=== PATIENT | male | born 1970 ===

== ENCOUNTER 2016-07-30 09:36 | Inpatient (IN) | payer BC ==
[2016-07-30 09:42] VITALS: BMI 30.5
[2016-07-30] MEDS ORDERED: Sodium Chloride 0.9% 1,000 ML IV ONE ×4 (10:02→14:13)
[2016-07-30] MEDS ORDERED: Sodium Chloride 0.9% 1,000 ML ONE ×2 (10:09→12:52)
[2016-07-30 10:46] LABS: BASO # 0.1 K/uL (0.0-0.2); BASO % 0.3 % (0.0-2.0); EOS % 0.2 % (0.0-4.0); LYMPH # 1.1 K/uL (1.0-4.3); LYMPH % 4.9 % (20.0-40.0); MEAN CELL VOLUME 91.7 fL (80.0-94.0); MEAN CORPUSCULAR HEMOGLOBIN 31.4 pg (27.0-31.0); MEAN CORPUSCULAR HGB CONC 34.3 g/dL (33.0-37.0); MEAN PLATELET VOLUME 8.2 fL (7.2-11.7); MONO # 1.1 K/uL (0.0-0.8); MONO % 5.2 % (0.0-10.0); NRBC % 0.1 % (0.0-2.0); PLATELET COUNT 291 K/uL (130-400); RED CELL DISTRIBUTION WIDTH 15.1 % (11.5-14.5)
--- NOTE | 2016-07-30 10:46 | RAD ---
PROCEDURE: Radiographs of the chest and abdomen (obstructive series) HISTORY: abd pain COMPARISON: No prior. TECHNIQUE: AP radiograph of the chest, with upright and supine radiographs of the abdomen. FINDINGS: CHEST: Lungs: Clear. Cardiovascular: Normal size heart. No pulmonary vascular congestion. Pleura: No pleural fluid. No pneumothorax. Other findings: None. ABDOMEN AND PELVIS: Bowel: Unremarkable bowel gas pattern. No evidence of mechanical obstruction. Free air: None. Bones: Unremarkable. Other findings: None. IMPRESSION: Unremarkable radiographs of chest and abdomen. No evidence of mechanical bowel obstruction.
[2016-07-30 10:49] LABS: WHITE BLOOD COUNT 22.1 K/uL (4.8-10.8)
[2016-07-30 10:52] LABS: CHLORIDE 98 mmol/L (98-107); SODIUM 143 mmol/L (132-148)
[2016-07-30 10:54] LABS: ALB/GLOB RATIO 1.3 (1.0-2.1); AST/SGOT 603 U/L (17-59); BILIRUBIN,TOTAL 6.6 mg/dL (0.2-1.3); CARBON DIOXIDE 24 mmol/L (22-30); GFR AFRICAN-AMERICAN > 60; TOTAL PROTEIN 7.9 g/dL (6.3-8.3)
[2016-07-30 10:55] LABS: ALKALINE PHOSPHATASE 192 U/L (38-126); ALT/SGPT 813 U/L (21-72); BLOOD UREA NITROGEN 11 mg/dL (9-20); CALCIUM 9.5 mg/dl (8.6-10.4); GLUCOSE,RANDOM 232 mg/dL (75-110)
[2016-07-30] MEDS ORDERED: Potassium Chloride 20 mEq ER Tab PO STA (10:56)
[2016-07-30] MEDS ORDERED: Piperacillin/Tazobact 3.375 gm 100 ML IV STA (10:56)
[2016-07-30 11:02] LABS: URINE BILIRUBIN NEGATIVE (NEGATIVE); URINE BLOOD 1+ (NEGATIVE); URINE COLOR Amber (YELLOW); URINE GLUCOSE (UA) 3+ mg/dL (Normal); URINE KETONE 1+ mg/dL (NEGATIVE); URINE LEUKOCYTE ESTERASE NEG Leu/uL (Negative); URINE PROTEIN NEGATIVE (NEGATIVE); URINE UROBILINOGEN NORMAL mg/dL (0.2-1.0); WBC URINE 1 /hpf (0-5)
[2016-07-30 11:03] LABS: RBC URINE 4 /hpf (0-3)
[2016-07-30] MEDS ORDERED: Potassium Chloride 20 mEq ER Tab PO ONE (11:09)
[2016-07-30] MEDS ORDERED: Piperacillin/Tazobact 3.375 gm 100 ML IVPB ONE (11:09)
[2016-07-30 11:14] LABS: BASOPHIL 1 % (0-2); NEUTROPHIL 86 % (50-75); TOTAL CELLS COUNTED 100
[2016-07-30] MEDS ORDERED: Iodixanol 320 MG/ML 100 ML BOTTLE IV ONE (11:46)
--- NOTE | 2016-07-30 12:47 | C.PDOC ---
History Of Present Illness <Ashtyn Bynum - Last Filed: 07/30/16 14:14> <NoeRowdyDamaris Darren - Last Filed: 07/30/16 15:19> 46 y/o male presents to the ED complaining of abdominal pain for 2 days, worse since this morning. Patient reports constipation for 3 days, and states he took Senna last night with no relief or bowel movement. He reports nausea since this morning with one episode of vomiting. Denies past medical history but admits to family history of diabetes and hypertension. Patient denies fevers, back pain, chest pain, SOB, urinary symptoms, or other complaints. (Damaris Noe) <Ashtyn Bynum - Last Filed: 07/30/16 14:14> History Per: Patient History/Exam Limitations: no limitations Onset/Duration Of Symptoms: Days (2), Gradual, Persistent, Worse Since (today) Current Symptoms Are (Timing): Still Present Location Of Pain/Discomfort: Diffuse Radiation Of Pain To:: None Associated Symptoms: Nausea, Vomiting (x 1) Last Bowel Movement: Days Ago (3) Recent travel outside of the [place]: No <Damaris Noe - Last Filed: 07/30/16 15:19> Time Seen by Provider: 07/30/16 09:57 Chief Complaint (Nursing): Abdominal Pain Past Medical History Reviewed: Historical Data, Nursing Documentation, Vital Signs - Medical History PMH: No Chronic Diseases Surgical History: No Surg Hx Family History: States: Diabetes, Hypertension - Social History Hx Tobacco Use: No Hx Alcohol Use: No Hx Substance Use: No - Immunization History Hx Tetanus Toxoid Vaccination: No Hx Influenza Vaccination: No Hx Pneumococcal Vaccination: No <Damaris Noe - Last Filed: 07/30/16 15:19> Vital Signs: Last Vital Signs Temp 97.4 F L 07/30/16 13:27 Pulse 58 L 07/30/16 15:04 Resp 14 07/30/16 15:04 BP 161/87 H 07/30/16 15:04 Pulse Ox 99 07/30/16 15:17 Review Of Systems Constitutional: Negative for: Fever Gastrointestinal: Positive for: Nausea, Vomiting (x1), Abdominal Pain Genitourinary: Negative for: Dysuria, Hematuria Musculoskeletal: Negative for: Back Pain <Damaris Noe - Last Filed: 07/30/16 15:19> Physical Exam - Physical Exam Appears: Non-toxic, Other (uncomfortable; in painful distress) Skin: Normal Color, Warm, Diaphoretic Head: Atraumatic, Normacephalic Eye(s): bilateral: Normal Inspection, PERRL Oral Mucosa: Moist Neck: Normal ROM, Supple Chest: Symmetrical Cardiovascular: Rhythm Regular Respiratory: Normal Breath Sounds, No Rales, No Rhonchi, No Wheezing Gastrointestinal/Abdominal: Soft, Tenderness (generalized, non-focal), Distention (mild), Guarding (voluntary), No Rebound Back: Normal Inspection, No CVA Tenderness Extremity: Normal ROM, No Swelling Neurological/Psych: Oriented x3, Normal Speech, Normal Cognition <Damaris Noe - Last Filed: 07/30/16 15:19> ED Course And Treatment - Laboratory Results Result Diagrams: 07/30/16 10:33 07/30/16 10:33 <Ashtyn Bynum - Last Filed: 07/30/16 14:14> - Laboratory Results Result Diagrams: 07/30/16 10:33 07/30/16 10:33 O2 Sat by Pulse Oximetry: 99 (ra) Pulse Ox Interpretation: Normal - Other Rad X-Ray, Chest/Abd X-Ray: Viewed By Me, Read By Radiologist (Miah Ware MD) Interpretation: FINDINGS: CHEST: Lungs: Clear. Cardiovascular: Normal size heart. No pulmonary vascular congestion. Pleura: No pleural fluid. No pneumothorax. Other findings: None. ABDOMEN AND PELVIS: Bowel: Unremarkable bowel gas pattern. No evidence of mechanical obstruction. Free air: None. Bones: Unremarkable. Other findings: None. IMPRESSION: Unremarkable radiographs of chest and abdomen. No evidence of mechanical bowel obstruction. - CT Scan/US CT Abd/Pelvis Other Rad Studies (CT/US): Read By Radiologist (Alexandru Ware MD), Radiology Report Reviewed CT/US Interpretation: FINDINGS: LOWER THORAX: Unremarkable. LIVER: Unremarkable. No gross lesion or ductal dilatation. GALLBLADDER AND BILE DUCTS : No evidence of gallstones. No abnormalities within the common bile duct. PANCREAS: Severe common diffuse pancreatitis. The pancreas is edematous, peripancreatic stranding, inflammatory changes noted. Fluid tracks along the anatomic tissue planes the pancreas from adjacent intraperitoneal retroperitoneal structures. SPLEEN: Unremarkable. ADRENALS: Unremarkable. No mass. KIDNEYS AND URETERS: Unremarkable. No hydronephrosis. No solid mass. VASCULATURE: Unremarkable. No aortic aneurysm. BOWEL: Unremarkable. No obstruction. No gross mural thickening. APPENDIX: Normal appendix. PERITONEUM : Unremarkable. No free fluid. No free air. LYMPH NODES: Unremarkable. No enlarged lymph nodes. BLADDER: Unremarkable. REPRODUCTIVE: Unremarkable. BONES: No acute fracture. OTHER FINDINGS: None. IMPRESSION: Acute/severe pancreatitis without focal abnormalities to suggest necrotizing pancreatitis. Communication of results: I discussed findings directly with the physician assistant food service director at the time of this interpretation. Study completed at 12:13. <Damaris Noe - Last Filed: 07/30/16 15:19> Supervising Attending Note - Supervising Attending Note The Documented history was done by the: Physician Digital Printer The documented physical exam was done by the: Physician Digital Printer The documented procedures were done by the: Physician Digital Printer - Attestation: I have personally seen and examined this patient.: Yes I have fully participated in the care of the patient.: Yes I have reviewed all pertinent clinical information: Yes <Ashtyn Bynum - Last Filed: 07/30/16 14:14> <Damaris Noe - Last Filed: 07/30/16 15:19> - Notes: Notes:: ABD PAIN X 2 DAYS. NO BM X 3 DAYS. PSH NEG. DENIES ETOH ABUSE. VSS EXAM ABOVE. CT FINDINGS REVIEWED (FletcherAshtyn) Progress - Data Reviewed Data Reviewed: Lab, Diagnostic imaging, Old records - Continuity of Care Discussed patient case with:: Patient, On-call PMD-pt unassigned Discussed pt. case with [facility]ix consultant/specialty: Pulmonary/Crit. Care <Ashtyn Bynum - Last Filed: 07/30/16 14:14> <Damaris Noe - Last Filed: 07/30/16 15:19> - Re-Evaluation Re-evaluation Note: 07/30/16 14:16 D/W DR LOPEZ AWARE OF ER FINDINGS WILL EVAL IN ER (FletcherAshtyn) Medical Decision Making <Ashtyn Bynum - Last Filed: 07/30/16 14:14> <Damaris Noe - Last Filed: 07/30/16 15:19> Medical Decision Making: Impression: abdominal pain x 2 days, worse this am. Nausea and vomiting x 1. Generalized tenderness. Differential diagnosis includes but not limited to: pancreatitis, bowel obstruction Plan: * X-Ray, Abdomen * Blood Work * Blood Culture * Urine Culture * Urinalysis * Zofran IVP, Toradol IVP, Pepcid IVP, Morphine IVP Progress: Labs show leukocytosis>20, Blood culture and Zosyn ordered. Elevated lipase and hyperglycemia. Pt denies any history of DM, and occasional ETOH CT ordered - positive for acute/severe pancreatitis. 13:00 case d/w Dr. Jackson, accepts patient to his service. Requesting call to medical information specialist. 13:03 case d/w medical information specialist who states will come to ER. Discussed case with Dr Bynum who recommends ICU consult and speaks with director housekeeping (Damaris Noe) Disposition <FletcherAshtyn - Last Filed: 07/30/16 14:14> - Disposition Disposition Time: 13:05 <Damaris Noe - Last Filed: 07/30/16 15:19> - Disposition Disposition: TRANSF TO SNF Condition: FAIR - Clinical Impression Clinical Impression: Acute pancreatitis <Ashtyn Bynum - Last Filed: 07/30/16 14:14> - PA / MANAGER SOLUTION / Resident Statement MD/DO has reviewed & agrees with the documentation as recorded. - Scribe Statement The provider has reviewed the documentation as recorded by the Scribe (Genoveva Dugan) <Damaris Noe - Last Filed: 07/30/16 15:19> - Scribe Statement All medical record entries made by the Scribe were at my direction and personally dictated by me. I have reviewed the chart and agree that the record accurately reflects my personal performance of the history, physical exam, medical decision making, and the department course for this patient. I have also personally directed, reviewed, and agree with the discharge instructions and disposition. (Damaris Noe) Decision To Admit <Ashtyn Bynum - Last Filed: 07/30/16 14:14> - Pt Status Changed To: Hospital Disposition Of: Inpatient - Admit Certification Admit to Inpatient:: After my assessment, the patient will require hospitalization for at least two midnights. This is because of the severity of symptoms shown, intensity of services needed, and/or the medical risk in this patient being treated as an outpatient. - InPatient: Physician Admission Certification:: Patient with acute severe pancreatitis, WBC >20. Will require IV antibiotics, fluids and consults - . Bed Request Type: Regular Admitting Physician: Arden aJckson Jr. <Damaris Noe - Last Filed: 07/30/16 15:19> - . Patient Diagnosis: Acute pancreatitis
[2016-07-30] MEDS ORDERED: Morphine 4 MG/ML VIAL ONE (12:52)
--- NOTE | 2016-07-30 13:01 | CT ---
PROCEDURE: CT Abdomen and Pelvis with contrast HISTORY: Unspecified abdominal pain and constipation. COMPARISON: July 30, 2016. Abdominal series TECHNIQUE: Contrast dose: 100 cc Visipaque 320. Radiation dose: Total exam DLP = 563.47 mGy-cm. FINDINGS: LOWER THORAX: Unremarkable. LIVER: Unremarkable. No gross lesion or ductal dilatation. GALLBLADDER AND BILE DUCTS: No evidence of gallstones. No abnormalities within the common bile duct. PANCREAS: Severe common diffuse pancreatitis. The pancreas is edematous, peripancreatic stranding, inflammatory changes noted. Fluid tracks along the anatomic tissue planes the pancreas from adjacent intraperitoneal retroperitoneal structures. SPLEEN: Unremarkable. ADRENALS: Unremarkable. No mass. KIDNEYS AND URETERS: Unremarkable. No hydronephrosis. No solid mass. VASCULATURE: Unremarkable. No aortic aneurysm. BOWEL: Unremarkable. No obstruction. No gross mural thickening. APPENDIX: Normal appendix. PERITONEUM: Unremarkable. No free fluid. No free air. LYMPH NODES: Unremarkable. No enlarged lymph nodes. BLADDER: Unremarkable. REPRODUCTIVE: Unremarkable. BONES: No acute fracture. OTHER FINDINGS: None. IMPRESSION: Acute/severe pancreatitis without focal abnormalities to suggest necrotizing pancreatitis. Communication of results: I discussed findings directly with the physician workforce development assistant at the time of this interpretation. Study completed at 12:13.
[2016-07-30 13:49] LABS: VENOUS BLOOD GAS BASE EXCESS -2.4 mmol/L (0.0-2.0); VENOUS BLOOD GAS PCO2 50 mmHg (40-60)
[2016-07-30] MEDS ORDERED: Morphine 4 MG/ML VIAL IVP PRN (14:19)
[2016-07-30] MEDS ORDERED: Bisacodyl 5mg EC Tab PO PRN (14:25)
[2016-07-30] MEDS ORDERED: Morphine 4 MG/ML VIAL IVP SCH (14:30)
[2016-07-30] MEDS ORDERED: Sodium Chloride 0.9% 1,000 ML IV SCH (14:30)
--- NOTE | 2016-07-30 14:35 | CP.PCM.HP ---
History of Present Illness - History of Present Illness History of Present Illness: CC: "abdominal pain" 46 year old male with no PMHx presents to the ED with 2 day history of abdominal pain. Patient reports pain started first and it has progressed to 10 out 10 pain today. Admits to nausea and episode of emesis once this AM. He reports going to the emergency room with abdominal pain 1.5 years ago, where he was diagnosed with constipation and given a laxative. He admits to constipation now, with last BM 2-3 days ago. Admits to abdominal distension and pain. He states he had blood work done about a year ago to check for diabetes since his mother is a diabetic. Patient was told "everything was fine" and does not follow regularly with a PMD. Denies chest pain, SOB, fevers, chills, headache, palpitations, diarrhea. Admits to 1 year history of increased urinary frequency , urgency and occasional incontinence. PMHx: denies Social Hx: denies alcohol use, smokes 3 cigarets per day, admits to daily use of marijuana. Family Hx: mother with DM and HTN. Surgery Hx: none NKDA Medications: none PMD: none Present on Admission - Present on Admission Any Indicators Present on Admission: No Review of Systems - Constitutional Constitutional: absent: Chills, Fatigue, Fever - EENT Eyes: absent: Blurred Vision, Change in Vision - Cardiovascular Cardiovascular: absent: Chest Pain, Diaphoresis, Dyspnea - Respiratory Respiratory: absent: Cough, Dyspnea - Gastrointestinal Gastrointestinal: Abdominal Pain, Bloating, Constipation, Nausea, Vomiting. absent: Diarrhea - Genitourinary Genitourinary: Urinary Incontinence, Urinary Frequency, Urinary Urgency. absent : Difficulty Urinating, Dysuria - Musculoskeletal Musculoskeletal: absent: Back Pain, Numbness, Tingling - Integumentary Integumentary: absent: Non-Healing Lesions, Pruritus, Rash - Neurological Neurological: Weakness. absent: Dizziness, Numbness, Tingling - Psychiatric Psychiatric: absent: Anxiety - Endocrine Endocrine: absent: Fatigue, Palpitations - Hematologic/Lymphatic Hematologic: absent: Easy Bleeding, Easy Bruising Past Patient History - Past Social History Smoking Status: Light Smoker < 10 Cigarettes Daily - PSYCHIATRIC Hx Substance Use: No - SURGICAL HISTORY Hx Surgeries: No - ANESTHESIA Hx Anesthesia: No Meds Allergies/Adverse Reactions: Allergies Allergy/AdvReac Type Severity Reaction Status Date / Time No Known Allergies Allergy Verified 07/30/16 09:41 Physical Exam - Constitutional Appears: Toxic - Head Exam Head Exam: NORMAL INSPECTION, NORMOCEPHALIC - Eye Exam Eye Exam: EOMI, Normal appearance, Scleral icterus Pupil Exam: NORMAL ACCOMODATION, PERRL - ENT Exam ENT Exam: Mucous Membranes Dry, Normal Oropharynx - Neck Exam Neck exam: Positive for: Full Rom, Normal Inspection - Respiratory Exam Respiratory Exam: Clear to Auscultation Bilateral, NORMAL BREATHING PATTERN. absent: Rales, Rhonchi, Wheezes - Cardiovascular Exam Cardiovascular Exam: REGULAR RHYTHM, +S1, +S2. absent: Systolic Murmur - GI/Abdominal Exam GI & Abdominal Exam: Distended, Hypoactive Bowel Sounds, Tenderness - Extremities Exam Extremities exam: Positive for: full ROM, normal inspection. Negative for: pedal edema, tenderness - Back Exam Back exam: FULL ROM, NORMAL INSPECTION. absent: CVA tenderness (L), CVA tenderness (R) - Neurological Exam Neurological exam: Alert, CN II-XII Intact, Oriented x3 - Psychiatric Exam Psychiatric exam: Normal Affect, Normal Mood - Skin Skin Exam: Dry, Normal Color, Warm Results - Vital Signs Recent Vital Signs: Last Vital Signs Temp 97.4 F L 07/30/16 13:27 Pulse 50 L 07/30/16 12:56 Resp 18 07/30/16 12:56 BP 153/79 H 07/30/16 12:56 Pulse Ox 99 07/30/16 13:59 - Labs Result Diagrams: 07/30/16 10:33 07/30/16 10:33 Labs: Laboratory Results - last 24 hr 07/30/16 13:46 pO2 32 VBG pH 7.30 L VBG pCO2 50 VBG HCO3 21.9 VBG Total CO2 26.1 VBG O2 Sat (Calc) 62.1 VBG Base Excess -2.4 L VBG Potassium 3.4 L Sodium 141.0 Chloride 107.0 Glucose 185 H Lactate 3.1 H Venous Blood Potassium 3.4 L Assessment & Plan (1) Acute pancreatitis Assessment and Plan: Adriel's criteria at 24 hours: Positive for glucose >200 (232), LDH > 350 (3800) , AST >250 (603), WBC >67934 (72708). Lipase on admission 77784 Amylase on admission 1935 Abd/pelv CT showed acute/severe pancreatitis without focal abnormalities to suggest necrotizing pancreatitis. Patient received 2 bolus in the ED of NSS. Start aggressive fluid resuscitation with NSS at 200 cc/hr for 3 L. NPO except meds Zofran Q4H PRN for nausea f/u CMP Q8H Status: Acute (2) Metabolic acidosis, increased anion gap (IAG) Assessment and Plan: Measured anion gap: 21. Lactic Acid 3.3 as per VBG. Serum Ketones: negative Management as above. Status: Acute (3) Total bilirubin, elevated Assessment and Plan: T. Carrillo on admission 6.6. RUQ US shows heterogeneous echotexture of the hepatic parenchyma could be due to hepatic steatosis versus parenchymal disease. If indicated, MRI can be obtained for better evaluation. Cholelithiasis. No definite evidence of cholecystitis. Nuclear medicine HIDA scan can be obtained if indicated. GI consult placed- Dr. Matias- help appreciated. Status: Acute (4) Leukocytosis Assessment and Plan: Likely secondary to acute pancreatitis. WBC 22.1. Afebrile. Antibiotics not indicated at this time as per Dr. Jackson f/u blood and urine cx. UA negative CXR in obs series unremarkable. Lactic Acid 3.3 on admission. f/u CBC in the AM Status: Acute (5) Hyperglycemia Assessment and Plan: Random glucose on admission 232. Serum Ketones: negative. Hgb A1C 5.6 Monitor Status: Acute (6) Constipation Assessment and Plan: Abdomen Obs series is unremarkable. No evidence of mechanical bowel obstruction. Dulcolax suppository X 1 Status: Acute (7) Prophylactic measure Assessment and Plan: Protonix 40 mg IVP daily SCDs Heparin 5000 U SC Q8H Status: Acute
[2016-07-30 15:06] LABS: AMYLASE 1935 U/L (30-110)
--- NOTE | 2016-07-30 16:25 | US ---
HISTORY: elevated [email or web address] COMPARISON: None. TECHNIQUE: Sonographic evaluation of the abdomen. FINDINGS: LIVER: Measures 18 cm. Increased echogenicity of the liver parenchyma. No intrahepatic bile duct dilatation. GALLBLADDER: Near completely collapsed gallbladder with multiple echogenic outline within it. Mild gallbladder wall thickening which could be related to underdistention. No pericholecystic fluid. According to the technologist, the sonographic Candelario's sign was not present. COMMON BILE DUCT: Measures 3-4 mm. No stones. No dilatation. PANCREAS: Not optimally seen. RIGHT KIDNEY: Measures 14 x 5 x 5.3cm. Normal echogenicity. No calculus, mass, or hydronephrosis. LEFT KIDNEY: Not imaged. SPLEEN: Not imaged. AORTA: No aneurysmal dilatation within the visualized segments of the aorta. IVC: The visualized portions of the IVC appear unremarkable. OTHER FINDINGS: The visualized segments of the portal vein appear patent. IMPRESSION: Heterogeneous echotexture of the hepatic parenchyma could be due to hepatic steatosis versus parenchymal disease. If indicated, MRI can be obtained for better evaluation. Cholelithiasis. No definite evidence of cholecystitis. Nuclear medicine HIDA scan can be obtained if indicated.
--- NOTE | 2016-07-30 17:17 | CP.PCM.CON ---
<Sharif Chavis - Last Filed: 07/30/16 17:13> History of Present Illness - History of Present Illness History of Present Illness: Critical Care Consultation Note Dr. Butterfield CC: Abdominal Pain x 2 days HPI: This is a 46 year old male presenting for critical care evaluation of 2 days of abdominal pain. At this time, the patient does not require ICU critical care management. We agree with the current management set forth by the primary medical team consisting of aggressive fluid resuscitation and NPO. Thank you for your time and consideration with this consultation. Nima Chavis PGY1 Past Patient History - Past Social History Smoking Status: Light Smoker < 10 Cigarettes Daily - PSYCHIATRIC Hx Substance Use: No - SURGICAL HISTORY Hx Surgeries: No - ANESTHESIA Hx Anesthesia: No Meds Allergies/Adverse Reactions: Allergies Allergy/AdvReac Type Severity Reaction Status Date / Time No Known Allergies Allergy Verified 07/30/16 09:41 - Medications Medications: Current Medications Heparin Sodium (Porcine) (Heparin) 5,000 units SC Q8 SONYA Hydromorphone HCl (Dilaudid) 2 mg IVP Q4H PRN PRN Reason: Pain, severe (8-10) Sodium Chloride (Sodium Chloride 0.9%) 1,000 mls @ 200 mls/hr IV .Q5H SONYA Stop: 07/31/16 07:59 Ondansetron HCl (Zofran Inj) 4 mg IVP Q6 PRN PRN Reason: Nausea/Vomiting Pantoprazole Sodium (Protonix Inj) 40 mg IVP DAILY SONYA Results - Vital Signs Recent Vital Signs: Last Vital Signs Temp 97.4 F L 07/30/16 13:27 Pulse 58 L 07/30/16 15:04 Resp 14 07/30/16 15:04 BP 161/87 H 07/30/16 15:04 Pulse Ox 99 07/30/16 15:19 - Labs Result Diagrams: 07/30/16 10:33 07/30/16 10:33 Labs: Laboratory Results - last 24 hr 07/30/16 13:46 pO2 32 VBG pH 7.30 L VBG pCO2 50 VBG HCO3 21.9 VBG Total CO2 26.1 VBG O2 Sat (Calc) 62.1 VBG Base Excess -2.4 L VBG Potassium 3.4 L Sodium 141.0 Chloride 107.0 Glucose 185 H Lactate 3.1 H Venous Blood Potassium 3.4 L <KaitYonatanjohannJessica - Last Filed: 08/04/16 08:15> Meds - Medications Medications: Current Medications Albuterol/Ipratropium (Duoneb 3 Mg/0.5 Mg (3 Ml) Ud) 3 ml INH RQ6 PRN PRN Reason: Shortness of Breath Last Admin: 08/03/16 19:46 Dose: 3 ml Hydromorphone HCl (Dilaudid) 2 mg IVP Q4H PRN PRN Reason: Pain, severe (8-10) Last Admin: 08/04/16 03:08 Dose: 2 mg Metronidazole (Flagyl) 100 mls @ 100 mls/hr IVPB Q8 [facility] Last Admin: 08/04/16 05:02 Dose: 100 mls/hr Sodium Chloride (Sodium Chloride 0.9%) 1,000 mls @ 80 mls/hr IV .[id number] [facility] Last Admin: 08/04/16 04:08 Dose: Not Given Ondansetron HCl (Zofran Inj) 4 mg IVP Q6 PRN PRN Reason: Nausea/Vomiting Pantoprazole Sodium (Protonix Inj) 40 mg IVP DAILY [facility] Last Admin: 08/03/16 10:07 Dose: 40 mg Potassium Phos/Sodium Phos (Neutra-Phos) 1 pkt PO BID SONYA Senna/Docusate Sodium (Senokot S 50 Mg-8.6 Mg) 1 tab PO BID PRN PRN Reason: Constipation Results - Vital Signs Recent Vital Signs: Last Vital Signs Temp 98.2 F 08/04/16 07:49 Pulse 101 H 08/04/16 07:49 Resp 21 08/04/16 07:49 BP 168/90 H 08/04/16 07:49 Pulse Ox 95 08/04/16 07:49 - Labs Result Diagrams: 08/04/16 08:02 08/03/16 19:58 Labs: Laboratory Results - last 24 hr 08/03/16 08/03/16 08/03/16 07:01 11:31 14:02 WBC RBC Hgb Hct MCV MCH MCHC RDW Plt Count MPV Neut % (Auto) Lymph % (Auto) [place] % (Auto) Eos % (Auto) Baso % (Auto) Neut # Lymph # [place] # Eos # Baso # Neutrophils % (Manual) 88 H Band Neutrophils % 2 Lymphocytes % (Manual) 8 L Monocytes % (Manual) 2 Platelet Estimate Normal Poikilocytosis (manual Slight Anisocytosis (manual) Slight Sodium 136 Potassium 3.1 L Chloride 99 Carbon Dioxide 23 Anion Gap 17 BUN 8 L Creatinine 0.6 L Est GFR ( Amer) > 60 Est GFR (Non-Af Amer) > 60 POC Glucose (mg/dL) 161 H Random Glucose 184 H Calcium 6.8 L Phosphorus 1.1 L Magnesium Total Bilirubin 4.8 H AST 38 ALT 120 H Alkaline Phosphatase 111 Total Protein 6.0 L Albumin 2.9 L Globulin 3.1 Albumin/Globulin Ratio 0.9 L 08/03/16 08/03/16 08/03/16 16:26 19:58 21:27 WBC RBC Hgb Hct MCV MCH MCHC RDW Plt Count MPV Neut % (Auto) Lymph % (Auto) [place] % (Auto) Eos % (Auto) Baso % (Auto) Neut # Lymph # [place] # Eos # Baso # Neutrophils % (Manual) Band Neutrophils % Lymphocytes % (Manual) Monocytes % (Manual) Platelet Estimate Poikilocytosis (manual Anisocytosis (manual) Sodium 135 Potassium 2.8 L Chloride 97 L Carbon Dioxide 25 Anion Gap 16 BUN 7 L Creatinine 0.6 L Est GFR ( Amer) > 60 Est GFR (Non-Af Amer) > 60 POC Glucose (mg/dL) 158 H 132 H Random Glucose 169 H Calcium 7.0 L Phosphorus 1.5 L Magnesium 2.1 Total Bilirubin AST ALT Alkaline Phosphatase Total Protein Albumin Globulin Albumin/Globulin Ratio 08/04/16 08/04/16 07:19 08:02 WBC 19.4 H RBC 4.01 L Hgb 12.5 Hct 36.7 MCV 91.7 MCH 31.2 H MCHC 34.1 RDW 14.8 H Plt Count 189 MPV 7.9 Neut % (Auto) 87.7 H Lymph % (Auto) 6.7 L [place] % (Auto) 5.4 Eos % (Auto) 0.0 Baso % (Auto) 0.2 Neut # 17.0 H Lymph # 1.3 [place] # 1.1 H Eos # 0.0 Baso # 0.0 Neutrophils % (Manual) Band Neutrophils % Lymphocytes % (Manual) Monocytes % (Manual) Platelet Estimate Poikilocytosis (manual Anisocytosis (manual) Sodium Potassium Chloride Carbon Dioxide Anion Gap BUN Creatinine Est GFR ( Amer) Est GFR (Non-Af Amer) POC Glucose (mg/dL) 118 H Random Glucose Calcium Phosphorus Magnesium Total Bilirubin AST ALT Alkaline Phosphatase Total Protein Albumin Globulin Albumin/Globulin Ratio Attending/Attestation - Attestation I have personally seen and examined this patient.: Yes I have fully participated in the care of the patient.: Yes I have reviewed all pertinent clinical information: Yes Notes (Text): 08/04/16 08:12 Patient seen and examined in ER. Admitted for pancreatitis. Patient complaints of abdominal pain for the past 2 days. VS are stable, walking around with out assistance.
[2016-07-30] MEDS: Sodium Chloride 0.9% 1,000 ML IV SCH ×2 (17:50→22:28)
[2016-07-31] MEDS: Sodium Chloride 0.9% 1,000 ML IV SCH ×4 (04:02→21:28)
[2016-07-31 07:33] LABS: BASO % 0.1 % (0.0-2.0); EOS % 0.1 % (0.0-4.0); HEMATOCRIT 49.7 % (35.0-51.0); LYMPH # 0.6 K/uL (1.0-4.3); MEAN CELL VOLUME 92.5 fL (80.0-94.0); MEAN CORPUSCULAR HEMOGLOBIN 31.8 pg (27.0-31.0); MEAN CORPUSCULAR HGB CONC 34.4 g/dL (33.0-37.0); MEAN PLATELET VOLUME 7.9 fL (7.2-11.7); MONO # 0.6 K/uL (0.0-0.8); MONO % 2.9 % (0.0-10.0); NRBC % 0.1 % (0.0-2.0); PLATELET COUNT 200 K/uL (130-400); RED CELL DISTRIBUTION WIDTH 14.7 % (11.5-14.5); WHITE BLOOD COUNT 19.3 K/uL (4.8-10.8)
[2016-07-31 07:54] LABS: CHLORIDE 102 mmol/L (98-107); POTASSIUM 3.5 mmol/L (3.6-5.2); SODIUM 140 mmol/L (132-148)
[2016-07-31 07:56] LABS: AST/SGOT 264 U/L (17-59); BILIRUBIN,TOTAL 7.9 mg/dL (0.2-1.3); CARBON DIOXIDE 25 mmol/L (22-30); GFR AFRICAN-AMERICAN > 60
[2016-07-31 07:57] LABS: ALB/GLOB RATIO 1.3 (1.0-2.1); ALKALINE PHOSPHATASE 189 U/L (38-126); ALT/SGPT 577 U/L (21-72); BLOOD UREA NITROGEN 11 mg/dL (9-20); CALCIUM 7.6 mg/dl (8.6-10.4); GLUCOSE,RANDOM 121 mg/dL (75-110); TOTAL PROTEIN 6.3 g/dL (6.3-8.3)
[2016-07-31] MEDS ORDERED: Potassium Chloride 20 mEq ER Tab PO ONE (08:38)
[2016-07-31 09:02] LABS: NEUTROPHIL 93 % (50-75); TOTAL CELLS COUNTED 100
--- NOTE | 2016-07-31 11:47 | CP.PCM.PN ---
<[place]ron [place] - Last Filed: 07/31/16 16:55> Subjective - Date & Time of Evaluation Date of Evaluation: 07/31/16 Time of Evaluation: 10:00 - Subjective Subjective: PGY2 on medicine Dr. Jackson service: Pt seen and examined at bedside this morning. Pt reports mild improvement of his abdominal pain, and he felt bloated with gas. Pt said he had similar episode last year and he was admitted to [facility]. Denied BM and complains constipation for 3 days. Objective - Vital Signs/Intake and Output Vital Signs (last 24 hours): Temp Pulse Resp BP Pulse Ox 98.4 F 81 20 133/74 90 L 07/31/16 08:00 07/31/16 09:33 07/31/16 08:00 07/31/16 08:00 07/31/16 08:00 Intake and Output: 07/31/16 07/31/16 06:59 18:59 Intake Total 2800 Balance 2800 - Medications Medications: Current Medications Heparin Sodium (Porcine) (Heparin) 5,000 units SC Q8 [facility] Last Admin: 07/31/16 05:58 Dose: 5,000 units Hydromorphone HCl (Dilaudid) 2 mg IVP Q4H PRN PRN Reason: Pain, severe (8-10) Last Admin: 07/31/16 05:59 Dose: 2 mg Sodium Chloride (Sodium Chloride 0.9%) 1,000 mls @ 150 mls/hr IV .Q6H40M [facility] Last Admin: 07/31/16 09:13 Dose: 150 mls/hr Metronidazole (Flagyl) 100 mls @ 100 mls/hr IVPB Q8 [facility] Influenza Virus Vaccine (Afluria) 45 mcg IM .ONCE ONE Stop: 08/01/16 10:01 Ondansetron HCl (Zofran Inj) 4 mg IVP Q6 PRN PRN Reason: Nausea/Vomiting Pantoprazole Sodium (Protonix Inj) 40 mg IVP DAILY [facility] Last Admin: 07/31/16 09:14 Dose: 40 mg Pneumococcal Polyvalent Vaccine (Pneumovax 23 Vaccine) 0.5 ml IM .ONCE ONE Stop: 08/01/16 10:01 - Labs Labs: 07/31/16 07:13 07/31/16 07:13 - Constitutional Appears: Non-toxic, No Acute Distress - Head Exam Head Exam: NORMAL INSPECTION, NORMOCEPHALIC - Eye Exam Eye Exam: Normal appearance - Respiratory Exam Respiratory Exam: Clear to Ausculation Bilateral, NORMAL BREATHING PATTERN. absent: Rhonchi, Wheezes - GI/Abdominal Exam GI & Abdominal Exam: Guarding, Soft, Tenderness, Normal Bowel Sounds. absent: Rigid - Extremities Exam Extremities Exam: absent: Pedal Edema - Neurological Exam Neurological Exam: Alert, Awake, Oriented x3 - Psychiatric Exam Psychiatric exam: Normal Affect, Normal Mood - Skin Skin Exam: Dry, Intact Assessment and Plan - Assessment and Plan (Free Text) Assessment: (1) Acute pancreatitis Assessment and Plan: [place]'s criteria at 24 hours: Positive for glucose >200 (232), LDH > 350 (3800) , AST >250 (603), WBC >72848 (73495). Lipase on admission 03832 Amylase on admission 1935 No ICU at the moment per Dr. Butterfield. Abd/pelv CT showed acute/severe pancreatitis without focal abnormalities to suggest necrotizing pancreatitis. Patient received 2 bolus in the ED of NSS. Start aggressive fluid resuscitation with NSS at 200 cc/hr for 3 L. NPO except meds Zofran Q4H PRN for nausea CMP Q8H and replace as needed Status: Acute (2) Metabolic acidosis, increased anion gap (IAG) Assessment and Plan: Measured anion gap: 21 on admission, currently 17. Lactic Acid 3.3 as per VBG. Serum Ketones: negative Management as above. Status: Acute (3) Total bilirubin, elevated Assessment and Plan: T. Carrillo on admission 6.6, currently 7.9 LFT trending down, AST/ALT 603/813 on admission, currently 264/577 RUQ US shows heterogeneous echotexture of the hepatic parenchyma could be due to hepatic steatosis versus parenchymal disease. If indicated, MRI can be obtained for better evaluation. Cholelithiasis. No definite evidence of cholecystitis. Nuclear medicine HIDA scan can be obtained if indicated. GI consult placed- Dr. Matias- help appreciated. F/U lipid panel. Status: Acute (4) Leukocytosis Assessment and Plan: Likely secondary to acute pancreatitis. WBC 22.1 trending down to 19.3, Afebrile. Flagyl 500mg IV q8H started per Dr. Matias. UA negative CXR in obs series unremarkable. Lactic Acid 3.3 on admission. F/U cultures. Status: Acute (5) Hyperglycemia Assessment and Plan: Random glucose on admission 232. Serum Ketones: negative. Hgb A1C 5.6 Monitor Status: Acute (6) Constipation Assessment and Plan: Abdomen Obs series is unremarkable. No evidence of mechanical bowel obstruction. Dulcolax suppository X 1 Status: Acute (7) Prophylactic measure Assessment and Plan: Protonix 40 mg IVP daily SCDs Avoid chemical anticoagulation and NSAID to prevent hemorrhagic pancreatic necrosis. Status: Acute <Arden Jackson Jr. - Last Filed: 08/01/16 19:57> Objective - Vital Signs/Intake and Output Vital Signs (last 24 hours): Temp Pulse Resp BP Pulse Ox 97.5 F L 103 H 20 159/89 H 95 08/01/16 15:19 08/01/16 15:19 08/01/16 15:19 08/01/16 15:19 08/01/16 15:19 Intake and Output: 08/01/16 08/02/16 18:59 06:59 Intake Total 1200 Balance 1200 - Medications Medications: Current Medications Hydromorphone HCl (Dilaudid) 2 mg IVP Q4H PRN PRN Reason: Pain, severe (8-10) Last Admin: 08/01/16 15:44 Dose: 2 mg Sodium Chloride (Sodium Chloride 0.9%) 1,000 mls @ 150 mls/hr IV .Q6H40M [facility] Last Admin: 08/01/16 11:02 Dose: 150 mls/hr Metronidazole (Flagyl) 100 mls @ 100 mls/hr IVPB Q8 [facility] Last Admin: 08/01/16 14:26 Dose: 100 mls/hr Ondansetron HCl (Zofran Inj) 4 mg IVP Q6 PRN PRN Reason: Nausea/Vomiting Pantoprazole Sodium (Protonix Inj) 40 mg IVP DAILY [facility] Last Admin: 08/01/16 10:59 Dose: 40 mg - Labs Labs: 08/01/16 07:03 08/01/16 07:09 Attending/Attestation - Attestation I have personally seen and examined this patient.: Yes I have fully participated in the care of the patient.: Yes I have reviewed all pertinent clinical information, including history, physical exam and plan: Yes Notes (Text): 08/01/16 19:57 Patient seen and examined with the resident. Reviewed resident note and agree with findings and plan of care. [ ]
[2016-07-31] MEDS: metroNIDAZOLE IV 500 mg/100 ml 100 ML IVPB SCH ×2 (13:06→21:27)
--- NOTE | 2016-07-31 13:10 | PN ---
DATE: 07/31/2016 LOCATION: 361, bed B. This is a 46-year-old male seen and examined on 07/30/16 for GI consultation as [facility], reexamined again today with underlying diagnosis of acute pancreatitis with a com plaint of abdominal pain, still n.p.o. without reported active bleeding or significant new complaint. The entire chart is reviewed including, but not limited to the most recent lab and radiology study results, current and the previous medication lists, current and the previous medical events, the case discussed with the staff at length and the most recent lab results showed leukocytosis of 19.3 with normal hemoglobin and hematocrit as well as normal platelet count with low potassium 3.5, low creatin ine 0.7 with blood glucose level 121 with low calcium 7.9 and elevated total bilirubin 7.9 with AST d own to 264, ALT down to 577 with decreased alkaline phosphatase 189, still elevated. Repeat lipase, amylase level is still pending this morning and his hepatitis profile was reported to be negative as reported and ordered by myself. The patient had abdominal ultrasound after the CAT scan of the abdomen and the pelvis with evidence o f cholelithiasis, but no clear evidence of choledocholithiasis and abdominal and pelvic CAT scan show ed evidence of acute severe pancreatitis with possible necrotizing pancreatitis. PHYSICAL EXAMINATION: GENERAL: A 46-year-old male appeared to be awake, alert. VITAL SIGNS: Afebrile with heart rate of 84, respiratory rate 20-22, blood pressure 138/72. HEENT: Showed dry oral mucoid membrane, bilateral icteric sclerae. LUNGS: Few scattered crepitation. Decreased air entry at bases. HEART: Positive S1 and S2. ABDOMEN: Soft. Bowel sounds are present with generalized tenderness and mild distention. No mass o r organomegaly. No rebound tenderness or guarding. RECTAL: The patient refused. EXTREMITIES: Without significant edema, clubbing or cyanosis. IMPRESSION: 1. Cholelithiasis by ultrasound finding. 2. Abnormal liver function tests secondary to above. 3. Jaundice with elevated total bilirubin, the possibility of common bile duct stone was raised with possible obstructive jaundice. 4. Leukocytosis secondary to above. SUGGESTION: 1. Agree with your plan. 2. MRCP to rule out common bile duct stone. 3. Rehydration. 4. Follow up on serum lipase, amylase level. Proton pump inhibitors. Reglan IV. 5. The patient may benefit from Flagyl IV in the meantime. It has to be mentioned that if the patient has evidence of common bile duct stone, then ERCP to be sc heduled. Otherwise, close observation to follow. Dk Matias MD cc: 14 TT: 07/31/2016 13:10:08 Confirmation # [id number] Dictation # [id number] tn
[2016-07-31] MEDS ORDERED: Gadodiamide 287 mg/ml 20 ml IV ONE (14:33)
[2016-08-01] MEDS: Sodium Chloride 0.9% 1,000 ML IV SCH ×4 (04:44→21:32)
[2016-08-01] MEDS: metroNIDAZOLE IV 500 mg/100 ml 100 ML IVPB SCH ×3 (05:11→21:26)
--- NOTE | 2016-08-01 06:10 | CP.PCM.PN ---
<Tristan Ferreira - Last Filed: 08/01/16 06:06> Subjective - Date & Time of Evaluation Date of Evaluation: 08/01/16 Time of Evaluation: 06:06 - Subjective Subjective: PGY-[address] Jackson's service Pt seen and examined at bedside. Pt still having abdominal pain. Pt states abdomen hurts more with deep inspirations. Pt had BM but states his stools are hard. He denies any fevers, chills, chest pain or sob. Objective - Vital Signs/Intake and Output Vital Signs (last 24 hours): Temp Pulse Resp BP Pulse Ox 99 F 83 20 151/81 H 93 L 08/01/16 00:20 08/01/16 00:20 08/01/16 00:20 08/01/16 00:20 08/01/16 00:20 Intake and Output: 07/31/16 08/01/16 18:59 07:59 Intake Total 1150 Balance 1150 - Medications Medications: Current Medications Hydromorphone HCl (Dilaudid) 2 mg IVP Q4H PRN PRN Reason: Pain, severe (8-10) Last Admin: 08/01/16 05:09 Dose: 2 mg Sodium Chloride (Sodium Chloride 0.9%) 1,000 mls @ 150 mls/hr IV .Q6H40M [facility] Last Admin: 08/01/16 04:44 Dose: Not Given Metronidazole (Flagyl) 100 mls @ 100 mls/hr IVPB Q8 [facility] Last Admin: 08/01/16 05:11 Dose: 100 mls/hr Influenza Virus Vaccine (Afluria) 45 mcg IM .ONCE ONE Stop: 08/01/16 10:01 Ondansetron HCl (Zofran Inj) 4 mg IVP Q6 PRN PRN Reason: Nausea/Vomiting Pantoprazole Sodium (Protonix Inj) 40 mg IVP DAILY [facility] Last Admin: 07/31/16 09:14 Dose: 40 mg Pneumococcal Polyvalent Vaccine (Pneumovax 23 Vaccine) 0.5 ml IM .ONCE ONE Stop: 08/01/16 10:01 - Labs Labs: 07/31/16 07:13 07/31/16 07:13 - Constitutional Appears: Non-toxic, Other (uncomfortable) - Head Exam Head Exam: ATRAUMATIC, NORMOCEPHALIC - Eye Exam Eye Exam: Normal appearance Pupil Exam: PERRL - ENT Exam ENT Exam: Mucous Membranes Moist - Respiratory Exam Respiratory Exam: Clear to Ausculation Bilateral, NORMAL BREATHING PATTERN. absent: Rales, Wheezes - Cardiovascular Exam Cardiovascular Exam: +S1, +S2 - GI/Abdominal Exam GI & Abdominal Exam: Soft, Tenderness, Normal Bowel Sounds. absent: Distended, Firm - Extremities Exam Extremities Exam: Normal Capillary Refill, Normal Inspection - Neurological Exam Neurological Exam: Alert, Awake - Skin Skin Exam: Dry, Warm Assessment and Plan (1) Acute pancreatitis Assessment & Plan: [place]'s criteria at 24 hours: Positive for glucose >200 (232), LDH > 350 (3800) , AST >250 (603), WBC >80187 (48351). Lipase on admission 38592 Amylase on admission 1935 No ICU at the moment per Dr. Butterfield. Abd/pelv CT showed acute/severe pancreatitis without focal abnormalities to suggest necrotizing pancreatitis. Patient received 2 bolus in the ED of NSS. Start aggressive fluid resuscitation with NSS at 200 cc/hr for 3 L. NPO except meds Zofran Q4H PRN for nausea CMP Q8H and replace as needed Liver enzymes trending down Status: Acute (2) Metabolic acidosis, increased anion gap (IAG) Assessment & Plan: Measured anion gap: 21 on admission, currently 17. Lactic Acid 3.3 as per VBG. Serum Ketones: negative Management as above. Status: Acute (3) Total bilirubin, elevated Assessment & Plan: T. Carrillo on admission 6.6, currently 7.9 LFT trending down, AST/ALT 603/813 on admission, (07/31) 264/577 - f/u todays labs RUQ US shows heterogeneous echotexture of the hepatic parenchyma could be due to hepatic steatosis versus parenchymal disease. If indicated, MRI can be obtained for better evaluation. Cholelithiasis. No definite evidence of cholecystitis. Nuclear medicine HIDA scan can be obtained if indicated. GI consult placed- Dr. Matias- recommends current management and MRCP MRCP 07/31 - read pending F/U lipid panel. Status: Acute (4) Leukocytosis Assessment & Plan: Likely secondary to acute pancreatitis. WBC 22.1 trending down, Afebrile. Flagyl 500mg IV q8H started per Dr. Matias. UA negative CXR in obs series unremarkable. Lactic Acid 3.3 on admission. Urine cx 3/10 - no growth Status: Acute (5) Hyperglycemia Assessment & Plan: Random glucose on admission 232. Serum Ketones: negative. Hgb A1C 5.6 Monitor Status: Acute (6) Constipation Assessment & Plan: Abdomen Obs series is unremarkable. No evidence of mechanical bowel obstruction. Dulcolax suppository X 1 Having BM, but hard stool Status: Acute (7) Prophylactic measure Assessment & Plan: Protonix 40 mg IVP daily SCDs Avoid chemical anticoagulation and NSAID to prevent hemorrhagic pancreatic necrosis. Status: Acute <Arden Jackson Jr. - Last Filed: 08/01/16 20:00> Objective - Vital Signs/Intake and Output Vital Signs (last 24 hours): Temp Pulse Resp BP Pulse Ox 97.5 F L 103 H 20 159/89 H 95 08/01/16 15:19 08/01/16 15:19 08/01/16 15:19 08/01/16 15:19 08/01/16 15:19 Intake and Output: 08/01/16 08/02/16 18:59 06:59 Intake Total 1200 Balance 1200 - Medications Medications: Current Medications Hydromorphone HCl (Dilaudid) 2 mg IVP Q4H PRN PRN Reason: Pain, severe (8-10) Last Admin: 08/01/16 15:44 Dose: 2 mg Sodium Chloride (Sodium Chloride 0.9%) 1,000 mls @ 150 mls/hr IV .Q6H40M [facility] Last Admin: 08/01/16 11:02 Dose: 150 mls/hr Metronidazole (Flagyl) 100 mls @ 100 mls/hr IVPB Q8 [facility] Last Admin: 08/01/16 14:26 Dose: 100 mls/hr Ondansetron HCl (Zofran Inj) 4 mg IVP Q6 PRN PRN Reason: Nausea/Vomiting Pantoprazole Sodium (Protonix Inj) 40 mg IVP DAILY [facility] Last Admin: 08/01/16 10:59 Dose: 40 mg - Labs Labs: 08/01/16 07:03 08/01/16 07:09 Attending/Attestation - Attestation I have personally seen and examined this patient.: Yes I have fully participated in the care of the patient.: Yes I have reviewed all pertinent clinical information, including history, physical exam and plan: Yes Notes (Text): 08/01/16 20:00 Patient seen and examined with the resident. Reviewed resident note and agree with findings and plan of care. [ ]
[2016-08-01 07:20] LABS: LYMPH # 0.7 K/uL (1.0-4.3); RED CELL DISTRIBUTION WIDTH 14.9 % (11.5-14.5)
[2016-08-01 07:33] LABS: BASO % 0.2 % (0.0-2.0); HEMATOCRIT 43.4 % (35.0-51.0); LYMPH % 3.7 % (20.0-40.0); MEAN CELL VOLUME 93.2 fL (80.0-94.0); MEAN CORPUSCULAR HEMOGLOBIN 32.1 pg (27.0-31.0); MEAN CORPUSCULAR HGB CONC 34.5 g/dL (33.0-37.0); MEAN PLATELET VOLUME 8.1 fL (7.2-11.7); MONO # 0.8 K/uL (0.0-0.8); MONO % 4.2 % (0.0-10.0); PLATELET COUNT 174 K/uL (130-400); WHITE BLOOD COUNT 18.9 K/uL (4.8-10.8)
[2016-08-01 07:38] LABS: CHLORIDE 100 mmol/L (98-107); POTASSIUM 4.4 mmol/L (3.6-5.2); SODIUM 136 mmol/L (132-148)
[2016-08-01 07:40] LABS: GFR AFRICAN-AMERICAN > 60
[2016-08-01 07:41] LABS: ALB/GLOB RATIO 1.1 (1.0-2.1); ALKALINE PHOSPHATASE 154 U/L (38-126); ALT/SGPT 295 U/L (21-72); AST/SGOT 108 U/L (17-59); BLOOD UREA NITROGEN 12 mg/dL (9-20); CALCIUM 6.9 mg/dl (8.6-10.4); CARBON DIOXIDE 22 mmol/L (22-30); GLUCOSE,RANDOM 109 mg/dL (75-110); TOTAL PROTEIN 6.4 g/dL (6.3-8.3)
[2016-08-01 07:43] LABS: CHOLESTEROL 157 mg/dL (0-199)
[2016-08-01] MEDS ORDERED: Pneumococcal 23-Valent Vaccine IM ONE (10:00)
[2016-08-01] MEDS ORDERED: Influenza Virus Vaccine 45 mcg/0.5 ml Syr IM ONE (10:00)
[2016-08-01 10:39] LABS: NEUTROPHIL 79 % (50-75); TOTAL CELLS COUNTED 100
--- NOTE | 2016-08-01 11:23 | PN ---
DATE: 08/01/2016 LOCATION: 361, bed B. This is a 46-year-old male, seen and examined in rounds without significant clinical changes, but wit h more generalized jaundice. The entire chart is reviewed, including but not limited to, the most recent lab and radiology study r esults, current and previous medication list, current and previous medical events. Case discussed wi th the staff at length. The patient has intermittent periods of some abdominal pain, but no reported active bleeding with positive nausea, but no vomiting, associated with mild dyspepsia. Most recent lab results showed leukocytosis of 18.9 with normal hemoglobin and hematocrit as well as normal platelet count with low creatinine 0.7, low calcium 6.9 with subsequent improvement of AST to 108, decreased ALT to 295, still elevated, with decreased alkaline phosphatase 154, still high. Tota l bilirubin was reported to be increased to 9.0 with low albumin 3.4 and improvement of the lipase fr om 12,953 to 1487. Hepatitis profile was reported to be negative. The official report of the abdominal MRI is still pending, to rule out possible common bile duct ston e due to the patient's picture of obstructive jaundice. PHYSICAL EXAMINATION: GENERAL: A 46-year-old male, awake, alert, oriented. VITAL SIGNS: Afebrile with pulse of 104, respiratory rate 20-22, blood pressure 146/84. HEENT: Showed pale, dry oral mucoid membrane. Bilateral icteric sclerae. LUNGS: Few scattered crepitation. Decreased air entry at bases. HEART: Positive S1 and S2 with increased rate. ABDOMEN: Soft, mildly distended with generalized tenderness. No mass or organomegaly. No rebound t enderness or guarding. RECTAL: The patient refused. It has to be mentioned that the patient had a small bowel movement aft er an enema given yesterday with hard fecal material. EXTREMITIES: Without significant edema, clubbing or cyanosis. NEUROLOGIC: No reported neurological deficits, sensory or motor. IMPRESSION: 1. Acute pancreatitis of unclear etiology. The possibility of biliary pancreatitis was raised. 2. Cholelithiasis by ultrasound. 3. Abnormal liver function test, secondary to above. 4. Obstructive jaundice clinically and biochemically, awaiting magnetic resonance cholangiopancreato graphy results. 5. Episodes of hyperglycemia. 6. Change of bowel movement habit of unclear etiology with severe constipation, which could be relat ed to his acute pancreatitis. 7. Leukocytosis, most likely secondary to above. SUGGESTION: 1. Agree with your plan. 2. The patient is to be scheduled for ERCP at a.m., pending the outcome of the MRCP. However, due t o the patient's obstructive jaundice phenomena, the ERCP to be ordered. That to be done at a.m. 3. Further recommendation to follow. Dk Matias MD cc: 14 TT: 08/01/2016 11:22:52 Confirmation # [id number] Dictation # [id number]
[2016-08-02] MEDS: Sodium Chloride 0.9% 1,000 ML IV SCH ×5 (00:45→21:14)
[2016-08-02] MEDS: metroNIDAZOLE IV 500 mg/100 ml 100 ML IVPB SCH ×3 (05:21→21:09)
[2016-08-02 08:09] LABS: BASO % 0.1 % (0.0-2.0); HEMATOCRIT 41.4 % (35.0-51.0); LYMPH # 1.2 K/uL (1.0-4.3); LYMPH % 6.5 % (20.0-40.0); MEAN CORPUSCULAR HEMOGLOBIN 32.3 pg (27.0-31.0); MEAN CORPUSCULAR HGB CONC 34.7 g/dL (33.0-37.0); MEAN PLATELET VOLUME 7.9 fL (7.2-11.7); MONO # 0.9 K/uL (0.0-0.8); PLATELET COUNT 199 K/uL (130-400); RED CELL DISTRIBUTION WIDTH 15.1 % (11.5-14.5); WHITE BLOOD COUNT 17.8 K/uL (4.8-10.8)
[2016-08-02 08:12] LABS: CHLORIDE 100 mmol/L (98-107); POTASSIUM 2.9 mmol/L (3.6-5.2); SODIUM 142 mmol/L (132-148)
[2016-08-02 08:14] LABS: GFR AFRICAN-AMERICAN > 60
[2016-08-02 08:15] LABS: ALB/GLOB RATIO 0.9 (1.0-2.1); ALKALINE PHOSPHATASE 141 U/L (38-126); ALT/SGPT 212 U/L (21-72); AST/SGOT 59 U/L (17-59); BILIRUBIN,TOTAL 9.6 mg/dL (0.2-1.3); BLOOD UREA NITROGEN 10 mg/dL (9-20); CARBON DIOXIDE 27 mmol/L (22-30); GLUCOSE,RANDOM 110 mg/dL (75-110); TOTAL PROTEIN 6.6 g/dL (6.3-8.3)
[2016-08-02 08:16] LABS: CALCIUM 7.1 mg/dl (8.6-10.4)
[2016-08-02 09:13] LABS: NEUTROPHIL 82 % (50-75); REACTIVE LYMPHOCYTES 1 % (0-0); TOTAL CELLS COUNTED 100
[2016-08-02] MEDS: Potassium Chloride 20 mEq 100 ML IVPB SCH ×2 (10:22→12:15)
[2016-08-02] MEDS ORDERED: Iohexol 240 (50 ml) ONE (10:36)
[2016-08-02] MEDS ORDERED: Propofol 10 mg/ml Inj (20 ML) ONE ×2 (10:40→14:11)
[2016-08-02] MEDS ORDERED: Midazolam 2 MG/2 ML VIAL ONE ×3 (10:40→14:11)
[2016-08-02] MEDS ORDERED: Succinylcholine Chloride 20 mg/ml Syr (5 ml) IV ONE (10:41)
--- NOTE | 2016-08-02 10:42 | CP.PCM.PN ---
Subjective - Date & Time of Evaluation Date of Evaluation: 08/02/16 Time of Evaluation: 07:40 - Subjective Subjective: PGY-[address] Jackson's service Pt seen and examined at bedside. Pt still having abdominal pain rated at 7/10. Last BM 2-3 days ago, stating stools were hard. Denies f/c, chest pain, palpitations, SOB, n/v, diarrhea, urinary symptoms, LE edema, or any additional complaints. Patient went for ERCP today, however the procedure was stopped prematurely because patient became hypoxic. Objective - Vital Signs/Intake and Output Vital Signs (last 24 hours): Temp Pulse Resp BP Pulse Ox 98.3 F 103 H 20 164/81 H 95 08/02/16 07:29 08/02/16 07:29 08/02/16 07:29 08/02/16 07:29 08/02/16 07:29 Intake and Output: 08/02/16 08/02/16 06:59 18:59 Intake Total 2450 Balance 2450 - Medications Medications: Current Medications Hydromorphone HCl (Dilaudid) 2 mg IVP Q4H PRN PRN Reason: Pain, severe (8-10) Last Admin: 08/02/16 10:16 Dose: 2 mg Sodium Chloride (Sodium Chloride 0.9%) 1,000 mls @ 150 mls/hr IV .Q6H40M [facility] Last Admin: 08/02/16 07:52 Dose: Not Given Metronidazole (Flagyl) 100 mls @ 100 mls/hr IVPB Q8 [facility] Last Admin: 08/02/16 05:21 Dose: 100 mls/hr Potassium Chloride (Potassium Chloride 20 Meq/100 Ml) 100 mls @ 50 mls/hr IVPB Q2H [facility] Stop: 08/02/16 14:59 Last Admin: 08/02/16 10:22 Dose: 50 mls/hr Ondansetron HCl (Zofran Inj) 4 mg IVP Q6 PRN PRN Reason: Nausea/Vomiting Pantoprazole Sodium (Protonix Inj) 40 mg IVP DAILY [facility] Last Admin: 08/02/16 10:17 Dose: 40 mg - Labs Labs: 08/02/16 07:26 08/02/16 07:26 - Additional Findings Additional findings: - Constitutional Appears: Non-toxic, Other (uncomfortable) - Head Exam Head Exam: ATRAUMATIC, NORMOCEPHALIC - Eye Exam Eye Exam: Normal appearance Pupil Exam: PERRL - ENT Exam ENT Exam: Mucous Membranes Moist - Respiratory Exam Respiratory Exam: Clear to Ausculation Bilateral, NORMAL BREATHING PATTERN. absent: Rales, Wheezes - Cardiovascular Exam Cardiovascular Exam: +S1, +S2 - GI/Abdominal Exam GI & Abdominal Exam: Soft, Tenderness, Normal Bowel Sounds. absent: Distended, Firm - Extremities Exam Extremities Exam: Normal Capillary Refill, Normal Inspection - Neurological Exam Neurological Exam: Alert, Awake - Skin Skin Exam: Dry, Warm Assessment and Plan - Assessment and Plan (Free Text) Assessment: Acute pancreatitis Assessment & Plan: 08/02: Lipase - 379, downtrending [place]'s criteria at 24 hours: Positive for glucose >200 (232), LDH > 350 (3800) , AST >250 (603), WBC >93469 (20125). Lipase on admission 56282 Amylase on admission 1935 No ICU at the moment per Dr. Butterfield. Abd/pelv CT showed acute/severe pancreatitis without focal abnormalities to suggest necrotizing pancreatitis. Patient received 2 bolus in the ED of NSS. Start aggressive fluid resuscitation with NSS at 200 cc/hr for 3 L. NPO except meds Zofran Q4H PRN for nausea CMP Q8H and replace as needed Liver enzymes trending down Status: Acute Total bilirubin, elevated Assessment & Plan: Iza Vizcaino on admission 6.6, currently 7.9 LFT trending down, AST/ALT 603/813 on admission, (07/31) 264/577 - f/u todays labs RUQ US shows heterogeneous echotexture of the hepatic parenchyma could be due to hepatic steatosis versus parenchymal disease. If indicated, MRI can be obtained for better evaluation. Cholelithiasis. No definite evidence of cholecystitis. Nuclear medicine HIDA scan can be obtained if indicated. GI consult placed- Dr. Matias- 08/02: ERCP- stopped early due to hypoxia. Major papilla was not found, major papilla appeared congested/erythematous/stenotic Rec full liquid diet; continue current meds; repeat ERCP for retreatment 07/31: MRCP- acute pancreatitis, possibility of necrosis. Inflammatory changes in upper abdomen consistent with acute pancreatitis. f/u MRCP study after 1-2 weeks suggested to eval for pseudocyst formation. contracted gallbladder with multiple stones. F/U lipid panel. Status: Acute Metabolic acidosis, increased anion gap (IAG) Assessment & Plan: Measured anion gap: 21 on admission, currently 17. Lactic Acid 3.3 as per VBG. Serum Ketones: negative Management as above. Status: Acute Leukocytosis Assessment & Plan: 08/02: WBC 17.8 , downtrending; BC neg x1day; UC neg. Likely secondary to acute pancreatitis. WBC 22.1 trending down, Afebrile. Flagyl 500mg IV q8H started per Dr. Matias. UA negative CXR in obs series unremarkable. Lactic Acid 3.3 on admission. Urine cx 07/30 - no growth Status: Acute Hyperglycemia Assessment & Plan: 08/02: gluc 110 - continue to monitor Random glucose on admission 232. Serum Ketones: negative. Hgb A1C 5.6 Status: Acute Constipation Assessment & Plan: 08/02: persists - fleet enema. Abdomen Obs series is unremarkable. No evidence of mechanical bowel obstruction. Dulcolax suppository X 1 Having BM, but hard stool Status: Acute Electrolyte Imbalance -Hypokalemia, K2.9 - KCl 20meq IVPB, Q2H Prophylactic measure Assessment & Plan: Protonix 40 mg IVP daily SCDs Avoid chemical anticoagulation and NSAID to prevent hemorrhagic pancreatic necrosis. Status: Acute [All management as per Dr. Jackson]
--- NOTE | 2016-08-02 10:48 | CP.PCM.PN ---
Objective - Vital Signs/Intake and Output Vital Signs (last 24 hours): Temp Pulse Resp BP Pulse Ox 98.3 F 103 H 20 164/81 H 95 08/02/16 07:29 08/02/16 07:29 08/02/16 07:29 08/02/16 07:29 08/02/16 07:29 Intake and Output: 08/02/16 08/02/16 06:59 18:59 Intake Total 2450 Balance 2450 - Medications Medications: Current Medications Hydromorphone HCl (Dilaudid) 2 mg IVP Q4H PRN PRN Reason: Pain, severe (8-10) Last Admin: 08/02/16 10:16 Dose: 2 mg Sodium Chloride (Sodium Chloride 0.9%) 1,000 mls @ 150 mls/hr IV .Q6H40M [facility] Last Admin: 08/02/16 07:52 Dose: Not Given Metronidazole (Flagyl) 100 mls @ 100 mls/hr IVPB Q8 [facility] Last Admin: 08/02/16 05:21 Dose: 100 mls/hr Potassium Chloride (Potassium Chloride 20 Meq/100 Ml) 100 mls @ 50 mls/hr IVPB Q2H [facility] Stop: 08/02/16 14:59 Last Admin: 08/02/16 10:22 Dose: 50 mls/hr Ondansetron HCl (Zofran Inj) 4 mg IVP Q6 PRN PRN Reason: Nausea/Vomiting Pantoprazole Sodium (Protonix Inj) 40 mg IVP DAILY [facility] Last Admin: 08/02/16 10:17 Dose: 40 mg - Labs Labs: 08/02/16 07:26 08/02/16 07:26
--- NOTE | 2016-08-02 11:34 | MRI ---
PROCEDURE: MRI Abdomen with and without contrast HISTORY: Abdominal pain. COMPARISON: Comparison is made to the previous CT of the abdomen and pelvis dated 07/30/2016. TECHNIQUE: Multisequence, multiplanar MR images of the abdomen with and without gadolinium contrast enhancement. 20 mL of Omniscan was injected intravenously. FINDINGS: LIVER: No evidence of acute pathology or suspicious mass GALLBLADDER: Contracted gallbladder contains multiple gallstones. Trace pericholecystic fluid seen. The common bile duct is not dilated. There is no evidence of choledocholithiasis. No intrahepatic biliary ductal dilatation seen. SPLEEN: Unremarkable. PANCREAS: Moderately enlarged heterogeneous pancreas surrounding with inflammatory changes and fluid consistent with the patient's history of acute pancreatitis. ADRENALS: Unremarkable. KIDNEYS: Unremarkable. AORTA: No aneurysm. ASCITES: Small to moderate amount of ascites seen in the upper abdomen. There is fluid around the greater curvature of the stomach. PERITONEUM: Free fluid and inflammatory changes seen in the upper abdomen. LYMPH NODES: Prominent mesenteric lymph nodes seen in the upper abdomen likely reactive. OTHER FINDINGS: Interval appearance of heterogeneous opacities and trace of fluid at the lung bases. IMPRESSION: Findings again consistent with acute pancreatitis. Moderately enlarged heterogeneous pancreas particularly the pancreatic head. The possibility of mild necrosis is not totally excluded. Inflammatory changes and fluid in the upper abdomen related to acute pancreatitis. Small to moderate amount of fluid around the greater curvature of the stomach. Findings also due to acute pancreatitis. No discrete drainable fluid collection is seen in this study. Follow-up study after 1-2 weeks is suggested to evaluate for pseudocyst formation. Contracted gallbladder contains multiple gallstones. No evidence of choledocholithiasis or biliary tree obstruction. Interval development of heterogeneous opacities and trace pleural effusions at the lung bases. Preliminary report was submitted by [facility].
[2016-08-03] MEDS: Sodium Chloride 0.9% 1,000 ML IV SCH ×3 (03:30→16:00)
[2016-08-03] MEDS: metroNIDAZOLE IV 500 mg/100 ml 100 ML IVPB SCH ×3 (05:40→21:11)
[2016-08-03 07:09] LABS: BASO % 0.2 % (0.0-2.0); HEMATOCRIT 37.4 % (35.0-51.0); LYMPH # 0.7 K/uL (1.0-4.3); MEAN CELL VOLUME 92.8 fL (80.0-94.0); MEAN CORPUSCULAR HEMOGLOBIN 31.5 pg (27.0-31.0); MEAN PLATELET VOLUME 7.8 fL (7.2-11.7); MONO % 5.7 % (0.0-10.0); PLATELET COUNT 194 K/uL (130-400); RED CELL DISTRIBUTION WIDTH 14.9 % (11.5-14.5); WHITE BLOOD COUNT 17.5 K/uL (4.8-10.8)
[2016-08-03 07:35] LABS: CHLORIDE 101 mmol/L (98-107); POTASSIUM 3.1 mmol/L (3.6-5.2); SODIUM 138 mmol/L (132-148)
[2016-08-03 07:37] LABS: ALB/GLOB RATIO 1.1 (1.0-2.1); ALKALINE PHOSPHATASE 123 U/L (38-126); ALT/SGPT 144 U/L (21-72); AMYLASE 72 U/L (30-110); AST/SGOT 34 U/L (17-59); BILIRUBIN,TOTAL 5.1 mg/dL (0.2-1.3); BLOOD UREA NITROGEN 8 mg/dL (9-20); CARBON DIOXIDE 29 mmol/L (22-30); GFR AFRICAN-AMERICAN > 60; GLUCOSE,RANDOM 172 mg/dL (75-110); TOTAL PROTEIN 5.8 g/dL (6.3-8.3)
[2016-08-03 07:38] LABS: CALCIUM 6.9 mg/dl (8.6-10.4); MAGNESIUM 2.3 mg/dL (1.6-2.3)
[2016-08-03 08:11] LABS: NEUTROPHIL 88 % (50-75); TOTAL CELLS COUNTED 100
--- NOTE | 2016-08-03 08:41 | CP.PCM.PN ---
Subjective - Date & Time of Evaluation Date of Evaluation: 08/03/16 Time of Evaluation: 07:25 - Subjective Subjective: PGY-[address] Jackson's service Pt seen and examined at bedside. Pt still having abdominal pain, today mildly better at 6/10. Last BM yesterday, however very hard and minimal stool. Denies f /c, chest pain, palpitations, SOB, n/v, diarrhea, urinary symptoms, LE edema, or any additional complaints. Objective - Vital Signs/Intake and Output Vital Signs (last 24 hours): Temp Pulse Resp BP Pulse Ox 98.7 F 89 20 142/89 96 08/03/16 08:09 08/03/16 08:13 08/03/16 08:09 08/03/16 08:09 08/03/16 08:09 Intake and Output: 08/03/16 08/03/16 06:59 18:59 Intake Total 1380 Balance 1380 - Medications Medications: Current Medications Hydromorphone HCl (Dilaudid) 2 mg IVP Q4H PRN PRN Reason: Pain, severe (8-10) Last Admin: 08/03/16 05:45 Dose: 2 mg Sodium Chloride (Sodium Chloride 0.9%) 1,000 mls @ 150 mls/hr IV .Q6H40M COUNTS INCLUDE 234 BEDS AT THE [facility] Last Admin: 08/03/16 03:30 Dose: 150 mls/hr Metronidazole (Flagyl) 100 mls @ 100 mls/hr IVPB Q8 COUNTS INCLUDE 234 BEDS AT THE [facility] Last Admin: 08/03/16 05:40 Dose: 100 mls/hr Ondansetron HCl (Zofran Inj) 4 mg IVP Q6 PRN PRN Reason: Nausea/Vomiting Pantoprazole Sodium (Protonix Inj) 40 mg IVP DAILY COUNTS INCLUDE 234 BEDS AT THE [facility] Last Admin: 08/02/16 10:17 Dose: 40 mg - Labs Labs: 08/03/16 07:01 08/03/16 07:01 - Additional Findings Additional findings: - Constitutional Appears: Non-toxic, Other (uncomfortable) - Head Exam Head Exam: ATRAUMATIC, NORMOCEPHALIC - Eye Exam Eye Exam: Normal appearance Pupil Exam: PERRL - ENT Exam ENT Exam: Mucous Membranes Moist - Respiratory Exam Respiratory Exam: Clear to Ausculation Bilateral, NORMAL BREATHING PATTERN. absent: Rales, Wheezes - Cardiovascular Exam Cardiovascular Exam: +S1, +S2 - GI/Abdominal Exam GI & Abdominal Exam: Soft, Tenderness, Normal Bowel Sounds. absent: Distended, Firm -moderate mid-epigastric tenderness to palpation - Extremities Exam Extremities Exam: Normal Capillary Refill, Normal Inspection - Neurological Exam Neurological Exam: Alert, Awake - Skin Skin Exam: Dry, Warm Assessment and Plan - Assessment and Plan (Free Text) Assessment: Acute pancreatitis, acute 08/03: lipase 107 / amylase 72 - resolved; Mid-epigastric abdominal pain persists Continue full liquid diet per GI. Continue NS 150cc/hr 08/02: Lipase - 379, downtrending Adriel's criteria at 24 hours: Positive for glucose >200 (232), LDH > 350 (3800) , AST >250 (603), WBC >91043 (58159). Lipase on admission 26951 Amylase on admission 1935 No ICU at the moment per Dr. Butterfield. Abd/pelv CT showed acute/severe pancreatitis without focal abnormalities to suggest necrotizing pancreatitis. Patient received 2 bolus in the ED of NSS. Start aggressive fluid resuscitation with NSS at 200 cc/hr for 3 L. NPO except meds Zofran Q4H PRN for nausea CMP Q8H and replace as needed Liver enzymes trending down Total bilirubin, elevated, acute 08/03: T.Bili 5.1 H, downtrending; AST 34 / ALT 144H / Alk Phosph 123 ( downtrending) GI consult placed- Dr. Matias- 08/03: Patient NPO for 08/04, possibly for repeat ERCP. Dr. Jackson to contact Dr. Matias. 08/02: ERCP- stopped early due to hypoxia. Major papilla was not found, major papilla appeared congested/erythematous/stenotic Rec full liquid diet; continue current meds; repeat ERCP for retreatment 07/31: MRCP- acute pancreatitis, possibility of necrosis. Inflammatory changes in upper abdomen consistent with acute pancreatitis. f/u MRCP study after 1-2 weeks suggested to eval for pseudocyst formation. contracted gallbladder with multiple stones. T. Carrillo on admission 6.6, currently 7.9 LFT trending down, AST/ALT 603/813 on admission, (07/31) 264/577 - f/u todays labs RUQ US shows heterogeneous echotexture of the hepatic parenchyma could be due to hepatic steatosis versus parenchymal disease. If indicated, MRI can be obtained for better evaluation. Cholelithiasis. No definite evidence of cholecystitis. Nuclear medicine HIDA scan can be obtained if indicated. -Lipid panel - Triglycerides 161, Cholesterol 157, LDL 72, HDL 26L Metabolic acidosis, increased anion gap (IAG), acute Measured anion gap: 21 on admission, currently 17. Lactic Acid 3.3 as per VBG. Serum Ketones: negative Management as above. Leukocytosis 08/03: WBC 17.5 , downtrending; BC neg x1day; UC neg. 08/02: WBC 17.8 , downtrending; BC neg x1day; UC neg. Likely secondary to acute pancreatitis. WBC 22.1 trending down, Afebrile. Flagyl 500mg IV q8H started per Dr. Matias. UA negative CXR in obs series unremarkable. Lactic Acid 3.3 on admission. Urine cx 07/30 - no growth Status: Acute Hyperglycemia, acute 08/02: gluc 110 - continue to monitor Random glucose on admission 232. Serum Ketones: negative. Hgb A1C 5.6 Constipation, acute 08/02: persists - fleet enema. Abdomen Obs series is unremarkable. No evidence of mechanical bowel obstruction. Dulcolax suppository X 1 Having BM, but hard stool Electrolyte Imbalance 08/03 PM: repeat labs K3.1 P 1.1 -> Neutraphos PO TID, KCl 10meq x2 bag, KPhos 15mmol in NS 250mL. f/u 20:00 labs 08/03 AM: Hypokalemia, K3.1 + Hyophosphatemia, P1.0 -> KPhos 15mmol in NS 250mL + Neutraphos PO 1 packet. 08/02: Hypokalemia, K2.9 - KCl 20meq IVPB, Q2H Prophylactic measure Protonix 40 mg IVP daily SCDs Avoid chemical anticoagulation and NSAID to prevent hemorrhagic pancreatic necrosis. [All management as per Dr. Jackson]
[2016-08-03] MEDS ORDERED: Potassium & Sodium Phosphate PO STA (09:20)
[2016-08-03] MEDS ORDERED: Potassium Phosphate 15 MMOLE in Sodium Chloride 0.9% 250 ML IVPB ONE ×2 (10:00→17:00)
[2016-08-03 14:20] LABS: CHLORIDE 99 mmol/L (98-107); POTASSIUM 3.1 mmol/L (3.6-5.2); SODIUM 136 mmol/L (132-148)
[2016-08-03 14:22] LABS: GFR AFRICAN-AMERICAN > 60
[2016-08-03 14:23] LABS: ALKALINE PHOSPHATASE 111 U/L (38-126); ALT/SGPT 120 U/L (21-72); AST/SGOT 38 U/L (17-59); BILIRUBIN,TOTAL 4.8 mg/dL (0.2-1.3); BLOOD UREA NITROGEN 8 mg/dL (9-20); CALCIUM 6.8 mg/dl (8.6-10.4); CARBON DIOXIDE 23 mmol/L (22-30); GLUCOSE,RANDOM 184 mg/dL (75-110); PHOSPHOROUS 1.1 mg/dL (2.5-4.5)
[2016-08-03 14:28] LABS: ALB/GLOB RATIO 0.9 (1.0-2.1)
--- NOTE | 2016-08-03 15:01 | CARD ---
APPROVED REPORT EKG Measurement Heart [id number] 180P19 [id number] <Conclusion> Sinus bradycardia Left axis deviation Cannot rule out Anterior infarct, age undetermined Abnormal ECG
[2016-08-03] MEDS: Potassium Chloride 10 mEq 100 ML IVPB SCH ×2 (15:32→17:25)
[2016-08-03] MEDS: Albuterol-Ipratrop 3 mg / 0.5 (3 ml) UD INH PRN ×2 (16:16→19:46)
[2016-08-03] MEDS ORDERED: POLYETHYLENE GLYCOL 3350 17 GM/Dose PACKET PO ONE (17:29)
[2016-08-03] MEDS ORDERED: Potassium & Sodium Phosphate PO SCH (18:00)
[2016-08-03 20:24] LABS: CHLORIDE 97 mmol/L (98-107); SODIUM 135 mmol/L (132-148)
[2016-08-03 20:25] LABS: POTASSIUM 2.8 mmol/L (3.6-5.2)
[2016-08-03 20:27] LABS: GFR AFRICAN-AMERICAN > 60
[2016-08-03 20:28] LABS: BLOOD UREA NITROGEN 7 mg/dL (9-20); CARBON DIOXIDE 25 mmol/L (22-30); GLUCOSE,RANDOM 169 mg/dL (75-110); PHOSPHOROUS 1.5 mg/dL (2.5-4.5)
[2016-08-03 20:29] LABS: MAGNESIUM 2.1 mg/dL (1.6-2.3)
[2016-08-03] MEDS ORDERED: Docusate-Senna 50 mg-8.6 mg Tab PO PRN (22:00)
[2016-08-03] MEDS ORDERED: Potassium Chloride 20 mEq ER Tab PO ONE (22:15)
[2016-08-03] MEDS ORDERED: Potassium Chloride 20 mEq 100 ML IVPB ONE (22:30)
[2016-08-03] MEDS ORDERED: Potassium Phosphate 15 MMOLE in Sodium Chloride 0.9% 250 ML IV ONE (23:00)
[2016-08-04] MEDS: Sodium Chloride 0.9% 1,000 ML IV SCH ×2 (04:08→21:31)
[2016-08-04] MEDS: metroNIDAZOLE IV 500 mg/100 ml 100 ML IVPB SCH ×3 (05:02→21:26)
--- NOTE | 2016-08-04 07:39 | CP.PCM.PN ---
<Miah Castro - Last Filed: 08/04/16 19:49> Subjective - Date & Time of Evaluation Date of Evaluation: 08/04/16 Time of Evaluation: 07:20 - Subjective Subjective: PGY-[address] Jackson's service Pt seen and examined at bedside. Pts abdominal pain is improving, today a 3/10. Several episodes of diarrhea yesterday. Complains of constipation today. Scheduled for repeat ERCP with GI this morning. Has been NPO. Denies f/c, chest pain, palpitations, SOB, n/v, diarrhea, urinary symptoms, LE edema, or any additional complaints. Objective - Vital Signs/Intake and Output Vital Signs (last 24 hours): Temp Pulse Resp BP Pulse Ox 99.2 F 89 20 152/83 H 95 08/03/16 23:26 08/03/16 23:26 08/03/16 23:26 08/03/16 23:26 08/03/16 23:26 Intake and Output: 08/04/16 08/04/16 06:59 18:59 Intake Total 910 Balance 910 - Medications Medications: Current Medications Albuterol/Ipratropium (Duoneb 3 Mg/0.5 Mg (3 Ml) Ud) 3 ml INH RQ6 PRN PRN Reason: Shortness of Breath Last Admin: 08/03/16 19:46 Dose: 3 ml Hydromorphone HCl (Dilaudid) 2 mg IVP Q4H PRN PRN Reason: Pain, severe (8-10) Last Admin: 08/04/16 03:08 Dose: 2 mg Metronidazole (Flagyl) 100 mls @ 100 mls/hr IVPB Q8 [facility] Last Admin: 08/04/16 05:02 Dose: 100 mls/hr Sodium Chloride (Sodium Chloride 0.9%) 1,000 mls @ 80 mls/hr IV .[id number] [facility] Last Admin: 08/04/16 04:08 Dose: Not Given Ondansetron HCl (Zofran Inj) 4 mg IVP Q6 PRN PRN Reason: Nausea/Vomiting Pantoprazole Sodium (Protonix Inj) 40 mg IVP DAILY [facility] Last Admin: 08/03/16 10:07 Dose: 40 mg Potassium Phos/Sodium Phos (Neutra-Phos) 1 pkt PO BID [facility]ONYA Senna/Docusate Sodium (Senokot S 50 Mg-8.6 Mg) 1 tab PO BID PRN PRN Reason: Constipation - Labs Labs: 08/03/16 07:01 08/03/16 19:58 - Additional Findings Additional findings: - Constitutional Appears: Non-toxic, Other (uncomfortable) - Head Exam Head Exam: ATRAUMATIC, NORMOCEPHALIC - Eye Exam Eye Exam: Normal appearance Pupil Exam: PERRL - ENT Exam ENT Exam: Mucous Membranes Moist - Respiratory Exam Respiratory Exam: Clear to Ausculation Bilateral, NORMAL BREATHING PATTERN. absent: Rales, Wheezes - Cardiovascular Exam Cardiovascular Exam: +S1, +S2 - GI/Abdominal Exam GI & Abdominal Exam: Soft, Tenderness, Normal Bowel Sounds. absent: Distended, Firm -moderate mild-epigastric tenderness to palpation, improving - Extremities Exam Extremities Exam: Normal Capillary Refill, Normal Inspection - Neurological Exam Neurological Exam: Alert, Awake - Skin Skin Exam: Dry, Warm Assessment and Plan - Assessment and Plan (Free Text) Assessment: Acute pancreatitis, acute 08/04: pain decreased to 10. f/u lipase/amylase. 08/03: lipase 107 / amylase 72 - resolved; Mid-epigastric abdominal pain persists Continue full liquid diet per GI. Continue NS 150cc/hr 08/02: Lipase - 379, downtrending Comanche's criteria at 24 hours: Positive for glucose >200 (232), LDH > 350 (3800) , AST >250 (603), WBC >11008 (60112). Lipase on admission 82756 Amylase on admission 1935 No ICU at the moment per Dr. Butterfield. Abd/pelv CT showed acute/severe pancreatitis without focal abnormalities to suggest necrotizing pancreatitis. Patient received 2 bolus in the ED of NSS. Start aggressive fluid resuscitation with NSS at 200 cc/hr for 3 L. NPO except meds Zofran Q4H PRN for nausea CMP Q8H and replace as needed Liver enzymes trending down Total bilirubin, elevated, acute 08/04: T.bili and LFTs downtrending. ERCP cancelled due to leukocytosis. Patient NPO for 08/05, repeat ERCP. 08/03: T.Bili 5.1 H, downtrending; AST 34 / ALT 144H / Alk Phosph 123 ( downtrending) GI consult placed- Dr. Matias- 08/03: Patient NPO for 08/04, possibly for repeat ERCP. Dr. Jackson to contact Dr. Matias. 08/02: ERCP- stopped early due to hypoxia. Major papilla was not found, major papilla appeared congested/erythematous/stenotic Rec full liquid diet; continue current meds; repeat ERCP for retreatment 07/31: MRCP- acute pancreatitis, possibility of necrosis. Inflammatory changes in upper abdomen consistent with acute pancreatitis. f/u MRCP study after 1-2 weeks suggested to eval for pseudocyst formation. contracted gallbladder with multiple stones. T. Carrillo on admission 6.6, currently 7.9 LFT trending down, AST/ALT 603/813 on admission, (07/31) 264/577 - f/u todays labs RUQ US shows heterogeneous echotexture of the hepatic parenchyma could be due to hepatic steatosis versus parenchymal disease. If indicated, MRI can be obtained for better evaluation. Cholelithiasis. No definite evidence of cholecystitis. Nuclear medicine HIDA scan can be obtained if indicated. -Lipid panel - Triglycerides 161, Cholesterol 157, LDL 72, HDL 26L Metabolic acidosis, increased anion gap (IAG), acute Measured anion gap: 21 on admission, currently 17. Lactic Acid 3.3 as per VBG. Serum Ketones: negative Management as above. Leukocytosis f/u UA 08/04. 08/04: WBC 19.4, 12 Bands. 08/03: WBC 17.5 , downtrending; 08/02: WBC 17.8 , downtrending; BC neg x1day; UC neg. Likely secondary to acute pancreatitis. WBC 22.1 trending down, Afebrile. Flagyl 500mg IV q8H started per Dr. Matias (since 07/31) BC neg x3day UC neg CXR in obs series unremarkable. Lactic Acid 3.3 on admission. Status: Acute Hyperglycemia, acute Mild, continue to monitor Random glucose on admission 232. Serum Ketones: negative. Hgb A1C 5.6 Constipation, acute 08/04: Miralax once. Senokot S 1tab PO BID PRN, constipation. 08/02: persists - fleet enema. Abdomen Obs series is unremarkable. No evidence of mechanical bowel obstruction. Dulcolax suppository X 1 Having BM, but hard stool Diarrhea, acute -08/04: 1 eipisode, decreasing. Neutraphos dec to BID. -08/03: 4 episodes of diarrhea likely due to neutraphos TID. Electrolyte Imbalance -Hypokalemia, 08/02: K2.9 KCl 20meq IVPB x2 -> 08/03: K3.1 KPhos 15mmol in NS 250mL -> K3.1 KCl 10meq x2 bag, KPhos 15mmol in NS 250mL -> 08/04: K3.3 KCl IV 20meq + KCl PO 20 -Hypophosphatemia, 08/02: P1.0 KPhos 15mmol in NS 250mL + Neutraphos PO 1 packet -> 08/03: P 1.1 -> Neutraphos PO TID + KPhos 15mmol in NS 250mL -> 08/04: 1.9 -> Neutraphos PO BID (reduced due to diarrhea). Prophylactic measure Protonix 40 mg IVP daily SCDs Avoid chemical anticoagulation and NSAID to prevent hemorrhagic pancreatic necrosis. [All management as per Dr. Jackson] <Arden aJckson Jr. - Last Filed: 08/08/16 14:01> Objective - Vital Signs/Intake and Output Vital Signs (last 24 hours): Temp Pulse Resp BP Pulse Ox 98.5 F 90 20 158/86 H 95 08/08/16 08:15 08/08/16 08:15 08/08/16 08:15 08/08/16 08:15 08/08/16 08:15 - Medications Medications: Current Medications Albuterol/Ipratropium (Duoneb 3 Mg/0.5 Mg (3 Ml) Ud) 3 ml INH RQ6 PRN PRN Reason: Shortness of Breath Last Admin: 08/04/16 20:51 Dose: 3 ml Hydromorphone HCl (Dilaudid) 0.5 mg IVP Q4H PRN PRN Reason: Pain, moderate (4-7) Metronidazole (Flagyl) 100 mls @ 100 mls/hr IVPB Q8 [facility] Last Admin: 08/08/16 13:19 Dose: 100 mls/hr Sodium Chloride (Sodium Chloride 0.9%) 1,000 mls @ 80 mls/hr IV .[id number] [facility] Last Admin: 08/08/16 09:37 Dose: 80 mls/hr Ciprofloxacin (Cipro 400mg/200ml Dsw) 200 mls @ 133 mls/hr IVPB Q12H [facility] Last Admin: 08/08/16 05:42 Dose: 133 mls/hr Insulin Glargine (Lantus) 10 unit SC DAILY [facility] Last Admin: 08/08/16 09:28 Dose: 10 u Metoclopramide HCl (Reglan) 5 mg IVP ACHS [facility] Last Admin: 08/08/16 11:03 Dose: 5 mg Ondansetron HCl (Zofran Inj) 4 mg IVP Q6 PRN PRN Reason: Nausea/Vomiting Pantoprazole Sodium (Protonix Inj) 40 mg IVP DAILY [facility] Last Admin: 08/08/16 09:26 Dose: 40 mg Senna/Docusate Sodium (Senokot S 50 Mg-8.6 Mg) 1 tab PO BID PRN PRN Reason: Constipation Last Admin: 08/04/16 14:40 Dose: 1 tab Tamsulosin HCl (Flomax) 0.4 mg PO DAILY [facility] Last Admin: 08/08/16 09:25 Dose: 0.4 mg - Labs Labs: 08/08/16 08:32 08/08/16 08:32 Attending/Attestation - Attestation I have personally seen and examined this patient.: Yes I have fully participated in the care of the patient.: Yes I have reviewed all pertinent clinical information, including history, physical exam and plan: Yes Notes (Text): 08/08/16 14:01 Patient seen and examined with the resident. Reviewed resident note and agree with findings and plan of care. [ ]
[2016-08-04 08:09] LABS: BASO % 0.2 % (0.0-2.0); HEMATOCRIT 36.7 % (35.0-51.0); LYMPH # 1.3 K/uL (1.0-4.3); LYMPH % 6.7 % (20.0-40.0); MEAN CELL VOLUME 91.7 fL (80.0-94.0); MEAN CORPUSCULAR HEMOGLOBIN 31.2 pg (27.0-31.0); MEAN CORPUSCULAR HGB CONC 34.1 g/dL (33.0-37.0); MEAN PLATELET VOLUME 7.9 fL (7.2-11.7); MONO # 1.1 K/uL (0.0-0.8); MONO % 5.4 % (0.0-10.0); PLATELET COUNT 189 K/uL (130-400); RED CELL DISTRIBUTION WIDTH 14.8 % (11.5-14.5); WHITE BLOOD COUNT 19.4 K/uL (4.8-10.8)
[2016-08-04 08:25] LABS: CHLORIDE 100 mmol/L (98-107); POTASSIUM 3.3 mmol/L (3.6-5.2); SODIUM 136 mmol/L (132-148)
[2016-08-04 08:27] LABS: ALB/GLOB RATIO 0.9 (1.0-2.1); ALKALINE PHOSPHATASE 123 U/L (38-126); ALT/SGPT 109 U/L (21-72); AST/SGOT 36 U/L (17-59); BILIRUBIN,TOTAL 3.4 mg/dL (0.2-1.3); BLOOD UREA NITROGEN 7 mg/dL (9-20); CARBON DIOXIDE 23 mmol/L (22-30); GFR AFRICAN-AMERICAN > 60; TOTAL PROTEIN 5.9 g/dL (6.3-8.3)
[2016-08-04 08:28] LABS: CALCIUM 7.3 mg/dl (8.6-10.4); GLUCOSE,RANDOM 123 mg/dL (75-110); MAGNESIUM 2.2 mg/dL (1.6-2.3); PHOSPHOROUS 1.9 mg/dL (2.5-4.5)
[2016-08-04 08:43] LABS: NEUTROPHIL 71 % (50-75); REACTIVE LYMPHOCYTES 3 % (0-0); TOTAL CELLS COUNTED 100
[2016-08-04] MEDS ORDERED: POLYETHYLENE GLYCOL 3350 17 GM/Dose PACKET PO ONE (10:15)
[2016-08-04] MEDS ORDERED: Potassium Chloride 20 mEq/15 ml LIQ UD PO ONE (11:00)
[2016-08-04] MEDS: Potassium Chloride 10 mEq 100 ML IVPB SCH ×2 (11:55→14:34)
[2016-08-04] MEDS: Potassium & Sodium Phosphate PO SCH ×2 (11:56→19:00)
--- NOTE | 2016-08-04 14:14 | PN ---
DATE: 08/04/2016 LOCATION: 361, bed B. This is a 46-year-old male, seen and examined in rounds without significant clinical changes. Appear ed to be awake, alert, oriented with less abdominal pain; however, still has jaundice, but with signi ficant improvement of his liver function test. The entire chart is reviewed, including but not limit ed to, the most recent lab and radiology study results, current and previous medication list, current and previous medical events and today white blood cells still elevated to 19.4 with increased bands, but low potassium 3.3 with blood glucose level 150, low calcium 7.3, low phosphorus 1.9, but improvi ng, better than before. However, his total bilirubin went down to 3.4, but still elevated with ALT o f 109 with low albumin 2.8, low total protein 5.9. Case discussed at length with the staff on the fl oor. PHYSICAL EXAMINATION: GENERAL: A 46-year-old male. VITAL SIGNS: Afebrile with heart rate of 96, respiratory rate 20-22, blood pressure 156/80. HEENT: Showed pale, dry mucoid membrane. Nonicteric sclerae. LUNGS: Few scattered crepitation, decreased air entry at bases. HEART: Positive S1 and S2. ABDOMEN: Soft. Bowel sounds are present. No mass or organomegaly. No rebound tenderness or guardi ng, but with mid epigastric and midabdominal line tenderness. EXTREMITIES: Without edema, clubbing or cyanosis. NEUROLOGIC: No reported neurological deficits, sensory or motor. IMPRESSION: 1. Acute pancreatitis, resolved. 2. Abnormal liver function tests, with still elevated total bilirubin and jaundice. The possibility of retained common bile duct stone is to be ruled in or out. 3. Reexacerbation of peptic ulcer disease. The patient was scheduled for endoscopic retrograde cholangiopancreatogram this morning. However, du e to the leukocytosis, it was decided to reschedule for a.m. until the patient is more stable clinica lly. Further recommendation to follow. Dk Matias MD cc: 14 TT: 08/04/2016 14:14:26 Confirmation # [id number] Dictation # [id number]
[2016-08-04] MEDS: Albuterol-Ipratrop 3 mg / 0.5 (3 ml) UD INH PRN (20:51)
[2016-08-05] MEDS: metroNIDAZOLE IV 500 mg/100 ml 100 ML IVPB SCH ×3 (05:23→21:23)
[2016-08-05] MEDS: Sodium Chloride 0.9% 1,000 ML IV SCH (05:25)
[2016-08-05 07:25] LABS: CHLORIDE 100 mmol/L (98-107)
[2016-08-05 07:26] LABS: POTASSIUM 3.3 mmol/L (3.6-5.2); SODIUM 134 mmol/L (132-148)
[2016-08-05 07:28] LABS: AMYLASE 34 U/L (30-110); BASO % 0.1 % (0.0-2.0); CARBON DIOXIDE 21 mmol/L (22-30); EOS % 0.1 % (0.0-4.0); GFR AFRICAN-AMERICAN > 60; HEMATOCRIT 36.5 % (35.0-51.0); LYMPH # 1.1 K/uL (1.0-4.3); LYMPH % 5.1 % (20.0-40.0); MEAN CELL VOLUME 92.7 fL (80.0-94.0); MEAN CORPUSCULAR HEMOGLOBIN 31.6 pg (27.0-31.0); MEAN CORPUSCULAR HGB CONC 34.1 g/dL (33.0-37.0); MEAN PLATELET VOLUME 7.8 fL (7.2-11.7); MONO # 1.4 K/uL (0.0-0.8); MONO % 6.7 % (0.0-10.0); PLATELET COUNT 219 K/uL (130-400); RED CELL DISTRIBUTION WIDTH 14.7 % (11.5-14.5); WHITE BLOOD COUNT 20.9 K/uL (4.8-10.8)
[2016-08-05 07:29] LABS: ALKALINE PHOSPHATASE 112 U/L (38-126); ALT/SGPT 76 U/L (21-72); AST/SGOT 29 U/L (17-59); BILIRUBIN,TOTAL 2.7 mg/dL (0.2-1.3); BLOOD UREA NITROGEN 7 mg/dL (9-20); CALCIUM 7.2 mg/dl (8.6-10.4); GLUCOSE,RANDOM 145 mg/dL (75-110); MAGNESIUM 2.1 mg/dL (1.6-2.3); PHOSPHOROUS 1.9 mg/dL (2.5-4.5); TOTAL PROTEIN 5.5 g/dL (6.3-8.3)
[2016-08-05] MEDS ORDERED: Potassium Chloride 20 mEq/15 ml LIQ UD PO ONE ×2 (08:51→14:00)
[2016-08-05] MEDS ORDERED: Potassium Phosphate 15 MMOLE in Sodium Chloride 0.9% 250 ML IVPB ONE (08:51)
[2016-08-05 11:12] LABS: NEUTROPHIL 82 % (50-75); TOTAL CELLS COUNTED 100
--- NOTE | 2016-08-05 11:13 | CP.PCM.PN ---
Subjective - Date & Time of Evaluation Date of Evaluation: 08/05/16 Time of Evaluation: 07:30 - Subjective Subjective: PGY-[address] Jackson's service Pt seen and examined at bedside. Pts abdominal pain is improving, today a 06/01. Stool soft brown, no diarrhea/constipation. Received repeat ERCP with GI this morning. Biliary stenting performed. Denies f/c, chest pain, palpitations, SOB, n/v, diarrhea, urinary symptoms, LE edema, or any additional complaints. Objective - Vital Signs/Intake and Output Vital Signs (last 24 hours): Temp Pulse Resp BP Pulse Ox 100 F H 95 H 20 151/83 H 97 08/05/16 08:16 08/05/16 08:16 08/05/16 08:16 08/05/16 08:16 08/05/16 08:16 Intake and Output: 08/05/16 08/05/16 06:59 18:59 Intake Total 640 Balance 640 - Medications Medications: Current Medications Albuterol/Ipratropium (Duoneb 3 Mg/0.5 Mg (3 Ml) Ud) 3 ml INH RQ6 PRN PRN Reason: Shortness of Breath Last Admin: 08/04/16 20:51 Dose: 3 ml Hydromorphone HCl (Dilaudid) 2 mg IVP Q4H PRN PRN Reason: Pain, severe (8-10) Last Admin: 08/04/16 21:10 Dose: 2 mg Metronidazole (Flagyl) 100 mls @ 100 mls/hr IVPB Q8 [facility] Last Admin: 08/05/16 05:23 Dose: 100 mls/hr Sodium Chloride (Sodium Chloride 0.9%) 1,000 mls @ 80 mls/hr IV .[id number] [facility] Last Admin: 08/05/16 05:25 Dose: 80 mls/hr Potassium Phosphate 15 mmole/ (Sodium Chloride) 255 mls @ 42.5 mls/hr IVPB ONCE ONE Stop: 08/05/16 14:50 Ondansetron HCl (Zofran Inj) 4 mg IVP Q6 PRN PRN Reason: Nausea/Vomiting Pantoprazole Sodium (Protonix Inj) 40 mg IVP DAILY [facility] Last Admin: 08/04/16 11:53 Dose: 40 mg Potassium Chloride (Potassium Chloride Oral Soln) 40 meq PO ONCE ONE Stop: 08/05/16 14:01 Potassium Phos/Sodium Phos (Neutra-Phos) 1 pkt PO BID [facility] Last Admin: 08/04/16 19:00 Dose: 1 pkt Senna/Docusate Sodium (Senokot S 50 Mg-8.6 Mg) 1 tab PO BID PRN PRN Reason: Constipation Last Admin: 08/04/16 14:40 Dose: 1 tab - Labs Labs: 08/05/16 06:45 08/05/16 06:45 - Additional Findings Additional findings: - Constitutional Appears: Non-toxic, Other (uncomfortable) - Head Exam Head Exam: ATRAUMATIC, NORMOCEPHALIC - Eye Exam Eye Exam: Normal appearance Pupil Exam: PERRL - ENT Exam ENT Exam: Mucous Membranes Moist - Respiratory Exam Respiratory Exam: Clear to Ausculation Bilateral, NORMAL BREATHING PATTERN. absent: Rales, Wheezes - Cardiovascular Exam Cardiovascular Exam: +S1, +S2 - GI/Abdominal Exam GI & Abdominal Exam: Soft, Tenderness, Normal Bowel Sounds. absent: Distended, Firm -mild mild-epigastric tenderness to palpation, improving - Extremities Exam Extremities Exam: Normal Capillary Refill, Normal Inspection - Neurological Exam Neurological Exam: Alert, Awake - Skin Skin Exam: Dry, Warm Assessment and Plan - Assessment and Plan (Free Text) Plan: Acute pancreatitis, acute f/u GGT 08/05: Lipase 67 / Amylase 34. mid-epigastric pain decreased to 1/10. Liquid diet 08/04: mid-epigastric pain decreased to 3/10. f/u lipase/amylase. 08/03: lipase 107 / amylase 72 - resolved; Mid-epigastric abdominal pain persists 08/02: Lipase - 379, downtrending Prentiss's criteria at 24 hours: Positive for glucose >200 (232), LDH > 350 (3800) , AST >250 (603), WBC >23884 (05633). Lipase on admission 23380 Amylase on admission 1935 No ICU at the moment per Dr. Butterfield. Abd/pelv CT showed acute/severe pancreatitis without focal abnormalities to suggest necrotizing pancreatitis. Patient received 2 bolus in the ED of NSS. Start aggressive fluid resuscitation with NSS at 200 cc/hr for 3 L. NPO except meds Zofran Q4H PRN for nausea CMP Q8H and replace as needed Liver enzymes trending down Total bilirubin, elevated, acute 08/05: T.bili and LFTs downtrending. ERCP performed with biliary stenting. ERCP findings- acute gastritis, erythematous duodenopathy, biliary papillary stenosis (benign) - tx with biliary stenting. Filling defect in distal CBD (air vs stone). 08/04: T.bili and LFTs downtrending. ERCP cancelled due to leukocytosis. Patient NPO for 08/05, repeat ERCP. 08/03: T.Bili 5.1 H, downtrending; AST 34 / ALT 144H / Alk Phosph 123 ( downtrending) GI consult placed- Dr. Matias- 08/02: ERCP- stopped early due to hypoxia. Major papilla was not found, major papilla appeared congested/erythematous/stenotic Rec full liquid diet; continue current meds; repeat ERCP for retreatment 07/31: MRCP- acute pancreatitis, possibility of necrosis. Inflammatory changes in upper abdomen consistent with acute pancreatitis. f/u MRCP study after 1-2 weeks suggested to eval for pseudocyst formation. contracted gallbladder with multiple stones. T. Carrillo on admission 6.6, currently 7.9 LFT trending down, AST/ALT 603/813 on admission, (07/31) 264/577 - f/u todays labs RUQ US shows heterogeneous echotexture of the hepatic parenchyma could be due to hepatic steatosis versus parenchymal disease. If indicated, MRI can be obtained for better evaluation. Cholelithiasis. No definite evidence of cholecystitis. Nuclear medicine HIDA scan can be obtained if indicated. -Lipid panel - Triglycerides 161, Cholesterol 157, LDL 72, HDL 26L Metabolic acidosis, increased anion gap (IAG), acute Measured anion gap: 21 on admission, currently 17. Lactic Acid 3.3 as per VBG. Serum Ketones: negative Management as above. Leukocytosis f/u UA 08/04 (not collected) 08/05: WBC 12.4- continue Flagyl. 08/04: WBC 19.4, 12 Bands. 08/03: WBC 17.5 , downtrending; 08/02: WBC 17.8 , downtrending; BC neg x1day; UC neg. Likely secondary to acute pancreatitis. WBC 22.1 trending down, Afebrile. Flagyl 500mg IV q8H started per Dr. Matias (since 07/31) BC neg x4day UC 07/30 neg CXR in obs series unremarkable. Lactic Acid 3.3 on admission. Status: Acute Hyperglycemia, acute Mild, continue to monitor Random glucose on admission 232. Serum Ketones: negative. Hgb A1C 5.6 Constipation, acute - resolving 08/05: continue Senokot S 1tab PO BID PRN, constipation. 08/04: Miralax once. Senokot S 1tab PO BID PRN, constipation. 08/02: persists - fleet enema. Abdomen Obs series is unremarkable. No evidence of mechanical bowel obstruction. Dulcolax suppository X 1 Having BM, but hard stool Diarrhea, acute - resolved 08/05: Continue Neutraphos BID. -08/04: 1 eipisode, decreasing. Neutraphos dec to BID. -08/03: 4 episodes of diarrhea likely due to neutraphos TID. Electrolyte Imbalance -Hypokalemia, 08/02: K2.9 KCl 20meq IVPB x2 -> 08/03: K3.1 KPhos 15mmol in NS 250mL -> K3.1 KCl 10meq x2 bag, KPhos 15mmol in NS 250mL -> 08/04: K3.3 KCl IV 20meq + KCl PO 20 -- Monitor and replete. -Hypophosphatemia, 08/02: P1.0 KPhos 15mmol in NS 250mL + Neutraphos PO 1 packet -> 08/03: P 1.1 -> Neutraphos PO TID + KPhos 15mmol in NS 250mL -> 08/04: 1.9 -> Neutraphos PO BID (reduced due to diarrhea). -- Monitor and replete. Prophylactic measure Protonix 40 mg IVP daily SCDs Avoid chemical anticoagulation and NSAID to prevent hemorrhagic pancreatic necrosis. [All management as per Dr. Jackson]
[2016-08-05] MEDS: Potassium & Sodium Phosphate PO SCH ×2 (11:19→21:23)
[2016-08-05] MEDS ORDERED: Propofol 10 mg/ml Inj (20 ML) ONE (11:51)
[2016-08-05] MEDS ORDERED: Succinylcholine Chloride 20 mg/ml Syr (5 ml) IV ONE (11:51)
[2016-08-05] MEDS ORDERED: Glucagon Recombinant 1 mg Inj ONE (12:28)
[2016-08-05] MEDS ORDERED: Esmolol 100 mg/10ml Inj IV ONE (13:26)
[2016-08-05 22:50] LABS: RBC URINE < 1 /hpf (0-3); URINE BACTERIA RARE (<OCC); URINE BILIRUBIN NEGATIVE (NEGATIVE); URINE COLOR Yellow (YELLOW); URINE GLUCOSE (UA) 3+ mg/dL (Normal); URINE KETONE 1+ mg/dL (NEGATIVE); URINE LEUKOCYTE ESTERASE NEG Leu/uL (Negative); URINE PROTEIN 1+ mg/dL (NEGATIVE); URINE UROBILINOGEN NORMAL mg/dL (0.2-1.0); WBC URINE 1 /hpf (0-5)
[2016-08-05 22:51] LABS: URINE BLOOD TRACE (NEGATIVE)
[2016-08-06] MEDS: metroNIDAZOLE IV 500 mg/100 ml 100 ML IVPB SCH ×3 (05:03→21:56)
[2016-08-06] MEDS: Sodium Chloride 0.9% 1,000 ML IV SCH ×2 (05:06→18:43)
[2016-08-06 08:43] LABS: BASO # 0.1 K/uL (0.0-0.2); BASO % 0.5 % (0.0-2.0); EOS % 0.1 % (0.0-4.0); HEMATOCRIT 39.4 % (35.0-51.0); LYMPH # 1.7 K/uL (1.0-4.3); LYMPH % 7.7 % (20.0-40.0); MEAN CELL VOLUME 92.3 fL (80.0-94.0); MEAN CORPUSCULAR HEMOGLOBIN 30.4 pg (27.0-31.0); MEAN PLATELET VOLUME 8.2 fL (7.2-11.7); MONO # 1.4 K/uL (0.0-0.8); MONO % 6.1 % (0.0-10.0); PLATELET COUNT 291 K/uL (130-400); RED CELL DISTRIBUTION WIDTH 14.9 % (11.5-14.5); WHITE BLOOD COUNT 22.5 K/uL (4.8-10.8)
[2016-08-06 09:06] LABS: CHLORIDE 101 mmol/L (98-107)
[2016-08-06 09:08] LABS: POTASSIUM 3.5 mmol/L (3.6-5.2); SODIUM 136 mmol/L (132-148)
[2016-08-06 09:10] LABS: ALB/GLOB RATIO 0.9 (1.0-2.1); ALKALINE PHOSPHATASE 116 U/L (38-126); ALT/SGPT 59 U/L (21-72); AMYLASE 38 U/L (30-110); AST/SGOT 24 U/L (17-59); BILIRUBIN,TOTAL 2.4 mg/dL (0.2-1.3); BLOOD UREA NITROGEN 8 mg/dL (9-20); CARBON DIOXIDE 21 mmol/L (22-30); GFR AFRICAN-AMERICAN > 60; GLUCOSE,RANDOM 198 mg/dL (75-110)
[2016-08-06 09:11] LABS: CALCIUM 7.3 mg/dl (8.6-10.4); MAGNESIUM 2.3 mg/dL (1.6-2.3); PHOSPHOROUS 2.5 mg/dL (2.5-4.5)
[2016-08-06 09:14] LABS: NEUTROPHIL 82 % (50-75); REACTIVE LYMPHOCYTES 1 % (0-0); TOTAL CELLS COUNTED 100
[2016-08-06] MEDS ORDERED: Potassium Chloride 20 mEq/15 ml LIQ UD PO ONE (09:24)
[2016-08-06] MEDS: Potassium & Sodium Phosphate PO SCH ×2 (10:05→18:51)
--- NOTE | 2016-08-06 12:44 | PN ---
DATE: 08/06/2016 LOCATION: 361, bed B. This is a 46-year-old male, post ERCP with biliary stent insertion, with intermittent periods of mild abdominal pain, for which Dilaudid was given before. The most recent lab and radiology study results, current and previous medication list, current and pr evious medical events were reviewed and the case discussed at length with the staff on the floor. It has to be mentioned that the patient still has leukocytosis of 22.5, but normal hemoglobin and hemat ocrit. His potassium is still low of 3.5 with low CO2 content of 21 indicative of metabolic acidosis, but in creased blood glucose level to 261 with low calcium 7.3, total bilirubin reported to be 2.4, which le ss than before, with low albumin 2.9 and low total protein 6.0, but normal ALT and AST. PHYSICAL EXAMINATION: GENERAL: A 46-year-old male. VITAL SIGNS: Afebrile with heart rate of 100, respiratory rate of 20-22, blood pressure of 134/82. HEENT: Showed pale, dry mucoid membrane. Mildly icteric sclerae. LUNGS: Few scattered crepitation, decreased air entry at bases. HEART: Positive S1 and S2. ABDOMEN: Soft. Bowel sounds are present with mild generalized tenderness. No mass or organomegaly. No rebound tenderness or guarding. EXTREMITIES: Without significant edema, clubbing or cyanosis. NEUROLOGIC: No new reported neurological deficits, sensory or motor. IMPRESSION: 1. Acute pancreatitis, resolving. 2. Status post endoscopic retrograde cholangiopancreatography with biliary stent insertion. 3. Nonvisualized gallbladder by endoscopic retrograde cholangiopancreatogram, which raised the possi bility of possible obstructive cystic duct by gallbladder stones, raising again the possibility of bi liary pancreatitis. 4. Jaundice, most likely secondary to above, improving gradually. 5. Reexacerbation of peptic ulcer disease. 6. Leukocytosis, secondary to above. SUGGESTION: 1. Agree with your plan. 2. Surgical consultation for potential cholecystectomy due to the finding of the endoscopic retrogra de cholangiopancreatogram and also positive ultrasound for cholelithiasis, and to prevent possible fu rther and recurrent biliary pancreatitis in the future. 3. IV antibiotics. 4. Repeat blood culture again. Dk Matias MD cc: 14 TT: 08/06/2016 12:43:11 Confirmation # [id number] Dictation # [id number]
--- NOTE | 2016-08-06 18:10 | CP.PCM.PN ---
Subjective - Date & Time of Evaluation Date of Evaluation: 08/06/16 Time of Evaluation: 08:15 - Subjective Subjective: PGY-[address] Ojeda (covering Dr. Jackson) Pt seen and examined at bedside. Pt reports abdominal pain has resolved today. Reports feeling bloated, stool soft brown, d/c resolved. Repeat ERCP performed with biliary stenting. Surgery consult for questionable CBD filling defect and prior US showing cholelithiasis. Denies f/c, chest pain, palpitations, SOB, n/v , d/c, urinary symptoms, LE edema, or any additional complaints. Objective - Vital Signs/Intake and Output Vital Signs (last 24 hours): Temp Pulse Resp BP Pulse Ox 99.1 F 111 H 20 147/83 95 08/06/16 16:00 08/06/16 16:00 08/06/16 16:00 08/06/16 16:00 08/06/16 16:00 Intake and Output: 08/06/16 08/06/16 06:59 18:59 Intake Total 900 1260 Balance 900 1260 - Medications Medications: Current Medications Albuterol/Ipratropium (Duoneb 3 Mg/0.5 Mg (3 Ml) Ud) 3 ml INH RQ6 PRN PRN Reason: Shortness of Breath Last Admin: 08/04/16 20:51 Dose: 3 ml Hydromorphone HCl (Dilaudid) 2 mg IVP Q4H PRN PRN Reason: Pain, severe (8-10) Last Admin: 08/06/16 04:50 Dose: 2 mg Metronidazole (Flagyl) 100 mls @ 100 mls/hr IVPB Q8 [facility] Last Admin: 08/06/16 14:13 Dose: 100 mls/hr Sodium Chloride (Sodium Chloride 0.9%) 1,000 mls @ 80 mls/hr IV .[id number] [facility] Last Admin: 08/06/16 05:06 Dose: 80 mls/hr Ciprofloxacin (Cipro 400mg/200ml Dsw) 200 mls @ 133 mls/hr IVPB Q12H [facility] Metoclopramide HCl (Reglan) 5 mg IVP ACHS [facility] Last Admin: 08/06/16 12:15 Dose: 5 mg Ondansetron HCl (Zofran Inj) 4 mg IVP Q6 PRN PRN Reason: Nausea/Vomiting Pantoprazole Sodium (Protonix Inj) 40 mg IVP DAILY [facility] Last Admin: 08/06/16 10:05 Dose: 40 mg Potassium Phos/Sodium Phos (Neutra-Phos) 1 pkt PO BID [facility] Last Admin: 08/06/16 10:05 Dose: 1 pkt Senna/Docusate Sodium (Senokot S 50 Mg-8.6 Mg) 1 tab PO BID PRN PRN Reason: Constipation Last Admin: 08/04/16 14:40 Dose: 1 tab - Labs Labs: 08/06/16 08:35 08/06/16 08:35 - Additional Findings Additional findings: - Constitutional Appears: Non-toxic, No acute distress - Head Exam Head Exam: ATRAUMATIC, NORMOCEPHALIC - Eye Exam Eye Exam: Normal appearance Pupil Exam: PERRL - ENT Exam ENT Exam: Mucous Membranes Moist - Respiratory Exam Respiratory Exam: Clear to Ausculation Bilateral, NORMAL BREATHING PATTERN. absent: Rales, Wheezes - Cardiovascular Exam Cardiovascular Exam: +S1, +S2 - GI/Abdominal Exam GI & Abdominal Exam: Soft, Tenderness, Normal Bowel Sounds. absent: Distended, Firm -Tenderness to palpation grossly resolved at mid-epigastrum -mild janes's sign - Extremities Exam Extremities Exam: Normal Capillary Refill, Normal Inspection - Neurological Exam Neurological Exam: Alert, Awake - Skin Skin Exam: Dry, Warm Assessment and Plan - Assessment and Plan (Free Text) Plan: Acute pancreatitis, acute 08/06: Lipase/amylase normalized. [id number]. Minimal abdominal pain today. Mildly ( +) Candelario's Hold Dilaudid. 08/05: Lipase 67 / Amylase 34. mid-epigastric pain decreased to 1/10. Liquid diet 08/04: mid-epigastric pain decreased to 3/10. f/u lipase/amylase. 08/03: lipase 107 / amylase 72 - resolved; Mid-epigastric abdominal pain persists 08/02: Lipase - 379, downtrending Adriel's criteria at 24 hours: Positive for glucose >200 (232), LDH > 350 (3800) , AST >250 (603), WBC >87106 (21373). Lipase on admission 97191 Amylase on admission 1935 No ICU at the moment per Dr. Butterfield. Abd/pelv CT showed acute/severe pancreatitis without focal abnormalities to suggest necrotizing pancreatitis. Patient received 2 bolus in the ED of NSS. Start aggressive fluid resuscitation with NSS at 200 cc/hr for 3 L. NPO except meds Zofran Q4H PRN for nausea CMP Q8H and replace as needed Liver enzymes trending down Total bilirubin, elevated, acute -08/05-08/06: T.bili downtrending. LFTs normalized. ERCP performed with biliary stenting 08/05. -f/u Surgery Consult, Dr. Chung, f/u recs. -GI consult placed- Dr. Matias- 08/06: Rec Surgical consult for questionable CBD filling defect and prior US showing cholelithiasis. 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 Filling defect in distal CBD (air vs stone). 08/02: ERCP- stopped early due to hypoxia. Major papilla was not found, major papilla appeared congested/erythematous/stenotic Rec full liquid diet; continue current meds; repeat ERCP for retreatment 07/31: MRCP- acute pancreatitis, possibility of necrosis. Inflammatory changes in upper abdomen consistent with acute pancreatitis. f/u MRCP study after 1-2 weeks suggested to eval for pseudocyst formation. contracted gallbladder with multiple stones. T. Carrillo on admission 6.6, currently 7.9 LFT trending down, AST/ALT 603/813 on admission, (07/31) 264/577 - f/u todays labs RUQ US shows heterogeneous echotexture of the hepatic parenchyma could be due to hepatic steatosis versus parenchymal disease. If indicated, MRI can be obtained for better evaluation. Cholelithiasis. No definite evidence of cholecystitis. Nuclear medicine HIDA scan can be obtained if indicated. -Lipid panel - Triglycerides 161, Cholesterol 157, LDL 72, HDL 26L Leukocytosis f/u Blood Culture 08/07 08/06: WBC 22.5, uptrending. Start Cipro 400mg IVPB Q12H (Q12 per pharmacy). Continue Flagyl. 08/05: WBC 20.9- continue Flagyl. UA Negative 08/04: WBC 19.4, 12 Bands. 08/03: WBC 17.5 , downtrending; 08/02: WBC 17.8 , downtrending; BC neg x1day; UC neg. Likely secondary to acute pancreatitis. WBC 22.1 trending down, Afebrile. Flagyl 500mg IV q8H started per Dr. Matias (since 07/31) BC neg x4day UC 3 neg CXR in obs series unremarkable. Lactic Acid 3.3 on admission. Status: Acute Metabolic acidosis, increased anion gap (IAG), acute Measured anion gap: 21 on admission Lactic Acid 3.3 as per VBG. Serum Ketones: negative Management as above. Hyperglycemia, acute Hgb A1C 5.6 Moderate, continue to monitor Random glucose on admission 232. Serum Ketones: negative. Constipation, acute - resolving 08/05-08/06: continue Senokot S 1tab PO BID PRN, constipation. 08/04: Miralax once. Senokot S 1tab PO BID PRN, constipation. 08/02: persists - fleet enema. Abdomen Obs series is unremarkable. No evidence of mechanical bowel obstruction. Dulcolax suppository X 1 Having BM, but hard stool Diarrhea, acute - resolved 08/05: Continue Neutraphos BID (STOP 08/08 am) -08/04: 1 eipisode, decreasing. Neutraphos dec to BID. -08/03: 4 episodes of diarrhea likely due to neutraphos TID. Electrolyte Imbalance -Hypokalemia, 08/02: K2.9 KCl 20meq IVPB x2 -> 08/03: K3.1 KPhos 15mmol in NS 250mL -> K3.1 KCl 10meq x2 bag, KPhos 15mmol in NS 250mL -> 08/04: K3.3 KCl IV 20meq + KCl PO 20 -- Monitor and replete. -Hypophosphatemia, 08/02: P1.0 KPhos 15mmol in NS 250mL + Neutraphos PO 1 packet -> 08/03: P 1.1 -> Neutraphos PO TID + KPhos 15mmol in NS 250mL -> 08/04: 1.9 -> Neutraphos PO BID (reduced due to diarrhea). -- Monitor -> Neutraphos set to stop 08/08 in am Prophylactic measure Protonix 40 mg IVP daily SCDs Avoid chemical anticoagulation and NSAID to prevent hemorrhagic pancreatic necrosis. [All management as per Dr. Jackson]
[2016-08-06] MEDS: Ciprofloxacin 400mg/200ml D5W 200 ML IVPB SCH (18:40)
[2016-08-07] MEDS: metroNIDAZOLE IV 500 mg/100 ml 100 ML IVPB SCH ×3 (05:15→21:40)
[2016-08-07] MEDS: Ciprofloxacin 400mg/200ml D5W 200 ML IVPB SCH ×2 (05:15→17:00)
[2016-08-07 08:09] LABS: BASO % 0.3 % (0.0-2.0); EOS % 0.1 % (0.0-4.0); HEMATOCRIT 36.1 % (35.0-51.0); LYMPH # 1.5 K/uL (1.0-4.3); LYMPH % 7.6 % (20.0-40.0); MEAN CELL VOLUME 92.4 fL (80.0-94.0); MEAN CORPUSCULAR HEMOGLOBIN 30.7 pg (27.0-31.0); MEAN CORPUSCULAR HGB CONC 33.2 g/dL (33.0-37.0); MEAN PLATELET VOLUME 8.4 fL (7.2-11.7); MONO # 1.4 K/uL (0.0-0.8); MONO % 7.1 % (0.0-10.0); PLATELET COUNT 296 K/uL (130-400); RED CELL DISTRIBUTION WIDTH 14.9 % (11.5-14.5); WHITE BLOOD COUNT 19.4 K/uL (4.8-10.8)
[2016-08-07 08:22] LABS: CHLORIDE 98 mmol/L (98-107)
[2016-08-07 08:23] LABS: POTASSIUM 3.4 mmol/L (3.6-5.2); SODIUM 134 mmol/L (132-148)
[2016-08-07 08:25] LABS: ALB/GLOB RATIO 0.9 (1.0-2.1); ALKALINE PHOSPHATASE 102 U/L (38-126); ALT/SGPT 45 U/L (21-72); AST/SGOT 25 U/L (17-59); BILIRUBIN,TOTAL 1.7 mg/dL (0.2-1.3); BLOOD UREA NITROGEN 8 mg/dL (9-20); CARBON DIOXIDE 23 mmol/L (22-30); GFR AFRICAN-AMERICAN > 60; GLUCOSE,RANDOM 236 mg/dL (75-110); TOTAL PROTEIN 5.6 g/dL (6.3-8.3)
[2016-08-07 08:26] LABS: CALCIUM 7.1 mg/dl (8.6-10.4); MAGNESIUM 2.1 mg/dL (1.6-2.3); PHOSPHOROUS 2.5 mg/dL (2.5-4.5)
--- NOTE | 2016-08-07 08:34 | CP.PCM.CON ---
<Tristan Michaels - Last Filed: 08/07/16 08:29> History of Present Illness - History of Present Illness History of Present Illness: Gen Surg Consult: Dr Chung Pt is a 46M who presented on 07/30/16 with 2 day history of abdominal pain. At the time the pain was 10/10 with associated nausea and vomiting. Work-up showed severe acute pancreatitis w/ known cholelithiasis. Pt also found to have elevated Tbili (highest 9+). Pt was taken for ERCP with stone extraction and stent placement. Since then his Tbili has trended down and lipase normalized, however there was intra-operative concern for cystic duct obstruction so surgery consult was placed. Currently pt denies any pain and states he feels much better. He denies f/c, n/v, and has been tolerating a diet. D/W pt options regarding cholecystectomy vs expectant management. Pt understands that this is his second episode of pancreatitis and it was a severe one. He understands the likelyhood of a repeat episode should he not undergo cholecystectomy. Pt is amenable to surgery. Also d/w sister. PMH: none PSH: none Social: no EtOH, daily smoker <1/2 ppd Review of Systems - Review of Systems All systems: reviewed and no additional remarkable complaints except (as per hpi ) Past Patient History - Past Medical History & Family History Past Medical History?: Yes - Past Social History Smoking Status: Light Smoker < 10 Cigarettes Daily - MUSCULOSKELETAL/RHEUMATOLOGICAL Hx Falls: No - PSYCHIATRIC Hx Substance Use: Yes (marijuana) - SURGICAL HISTORY Hx Surgeries: No - ANESTHESIA Hx Anesthesia: No Meds Allergies/Adverse Reactions: Allergies Allergy/AdvReac Type Severity Reaction Status Date / Time No Known Allergies Allergy Verified 07/30/16 09:41 - Medications Medications: Current Medications Albuterol/Ipratropium (Duoneb 3 Mg/0.5 Mg (3 Ml) Ud) 3 ml INH RQ6 PRN PRN Reason: Shortness of Breath Last Admin: 08/04/16 20:51 Dose: 3 ml Hydromorphone HCl (Dilaudid) 2 mg IVP Q4H PRN PRN Reason: Pain, severe (8-10) Last Admin: 08/06/16 04:50 Dose: 2 mg Metronidazole (Flagyl) 100 mls @ 100 mls/hr IVPB Q8 [facility] Last Admin: 08/07/16 05:15 Dose: 100 mls/hr Sodium Chloride (Sodium Chloride 0.9%) 1,000 mls @ 80 mls/hr IV .[id number] [facility] Last Admin: 08/06/16 18:43 Dose: Not Given Ciprofloxacin (Cipro 400mg/200ml Dsw) 200 mls @ 133 mls/hr IVPB Q12H [facility] Last Admin: 08/07/16 05:15 Dose: 133 mls/hr Metoclopramide HCl (Reglan) 5 mg IVP ACHS [facility] Last Admin: 08/07/16 06:46 Dose: 5 mg Ondansetron HCl (Zofran Inj) 4 mg IVP Q6 PRN PRN Reason: Nausea/Vomiting Pantoprazole Sodium (Protonix Inj) 40 mg IVP DAILY [facility] Last Admin: 08/06/16 10:05 Dose: 40 mg Potassium Phos/Sodium Phos (Neutra-Phos) 1 pkt PO BID [facility] Stop: 08/08/16 07:00 Last Admin: 08/06/16 18:51 Dose: 1 pkt Senna/Docusate Sodium (Senokot S 50 Mg-8.6 Mg) 1 tab PO BID PRN PRN Reason: Constipation Last Admin: 08/04/16 14:40 Dose: 1 tab Physical Exam - Constitutional Appears: Non-toxic, No Acute Distress - Head Exam Head Exam: NORMAL INSPECTION - Eye Exam Eye Exam: absent: Scleral icterus - Respiratory Exam Respiratory Exam: absent: Accessory Muscle Use, Respiratory Distress - Cardiovascular Exam Cardiovascular Exam: REGULAR RHYTHM. absent: Tachycardia - GI/Abdominal Exam GI & Abdominal Exam: Soft, Tenderness (minimal RUQ). absent: Distended, Firm, Guarding - Extremities Exam Extremities exam: Negative for: pedal edema - Neurological Exam Neurological exam: Alert, Oriented x3 - Psychiatric Exam Psychiatric exam: Normal Affect, Normal Mood Results - Vital Signs Recent Vital Signs: Last Vital Signs Temp 98.1 F 08/07/16 08:20 Pulse 102 H 08/07/16 08:20 Resp 20 08/07/16 08:20 BP 131/79 08/07/16 08:20 Pulse Ox 96 08/07/16 08:20 - Labs Result Diagrams: 08/07/16 08:00 08/06/16 08:35 Labs: Laboratory Results - last 24 hr 08/06/16 08/06/16 08/06/16 08:35 11:06 16:19 WBC 22.5 H RBC 4.26 L Hgb 13.0 Hct 39.4 MCV 92.3 MCH 30.4 MCHC 33.0 RDW 14.9 H Plt Count 291 MPV 8.2 Neut % (Auto) 85.6 H Lymph % (Auto) 7.7 L Ceiba % (Auto) 6.1 Eos % (Auto) 0.1 Baso % (Auto) 0.5 Neut # 19.3 H Lymph # 1.7 Ceiba # 1.4 H Eos # 0.0 Baso # 0.1 Neutrophils % (Manual) 82 H Band Neutrophils % 6 H Lymphocytes % (Manual) 5 L Reactive Lymphs % 1 H Monocytes % (Manual) 6 Toxic Granulation Present Platelet Estimate Normal RBC Morphology Normal Sodium 136 Potassium 3.5 L Chloride 101 Carbon Dioxide 21 L Anion Gap 18 BUN 8 L Creatinine 0.7 L Est GFR ( Amer) > 60 Est GFR (Non-Af Amer) > 60 POC Glucose (mg/dL) 261 H 266 H Random Glucose 198 H Calcium 7.3 L Phosphorus 2.5 Magnesium 2.3 Total Bilirubin 2.4 H GGT 172 H AST 24 ALT 59 Alkaline Phosphatase 116 Total Protein 6.0 L Albumin 2.9 L Globulin 3.1 Albumin/Globulin Ratio 0.9 L Amylase 38 Lipase 115 08/06/16 08/07/16 08/07/16 21:34 07:11 08:00 WBC 19.4 H RBC 3.90 L Hgb 12.0 Hct 36.1 MCV 92.4 MCH 30.7 MCHC 33.2 RDW 14.9 H Plt Count 296 MPV 8.4 Neut % (Auto) 84.9 H Lymph % (Auto) 7.6 L Ceiba % (Auto) 7.1 Eos % (Auto) 0.1 Baso % (Auto) 0.3 Neut # 16.5 H Lymph # 1.5 Ceiba # 1.4 H Eos # 0.0 Baso # 0.0 Neutrophils % (Manual) Band Neutrophils % Lymphocytes % (Manual) Reactive Lymphs % Monocytes % (Manual) Toxic Granulation Platelet Estimate RBC Morphology Sodium Potassium Chloride Carbon Dioxide Anion Gap BUN Creatinine Est GFR ( Amer) Est GFR (Non-Af Amer) POC Glucose (mg/dL) 307 H 275 H Random Glucose Calcium Phosphorus Magnesium Total Bilirubin GGT AST ALT Alkaline Phosphatase Total Protein Albumin Globulin Albumin/Globulin Ratio Amylase Lipase Assessment & Plan - Assessment and Plan (Free Text) Assessment: 46M with gallstone pancreaitis; resolving. Concern for cholecystitis Plan: cont IV hydration throughout weekend will clear and plan for Sx tuesday d/w Dr Sheldon Michaels, PGY2 - Date & Time Date: 08/07/16 Time: 08:35 <Papa Chung - Last Filed: 08/08/16 21:31> Meds - Medications Medications: Current Medications Albuterol/Ipratropium (Duoneb 3 Mg/0.5 Mg (3 Ml) Ud) 3 ml INH RQ6 PRN PRN Reason: Shortness of Breath Last Admin: 08/04/16 20:51 Dose: 3 ml Hydromorphone HCl (Dilaudid) 0.5 mg IVP Q4H PRN PRN Reason: Pain, moderate (4-7) Metronidazole (Flagyl) 100 mls @ 100 mls/hr IVPB Q8 [facility] Last Admin: 08/08/16 21:21 Dose: 100 mls/hr Sodium Chloride (Sodium Chloride 0.9%) 1,000 mls @ 80 mls/hr IV .[id number] [facility] Last Admin: 08/08/16 21:24 Dose: Not Given Ciprofloxacin (Cipro 400mg/200ml Dsw) 200 mls @ 133 mls/hr IVPB Q12H [facility] Last Admin: 08/08/16 17:15 Dose: 133 mls/hr Insulin Glargine (Lantus) 10 unit SC DAILY [facility] Last Admin: 08/08/16 09:28 Dose: 10 u Metoclopramide HCl (Reglan) 5 mg IVP ACHS [facility] Last Admin: 08/08/16 21:22 Dose: 5 mg Ondansetron HCl (Zofran Inj) 4 mg IVP Q6 PRN PRN Reason: Nausea/Vomiting Pantoprazole Sodium (Protonix Inj) 40 mg IVP DAILY [facility] Last Admin: 08/08/16 09:26 Dose: 40 mg Senna/Docusate Sodium (Senokot S 50 Mg-8.6 Mg) 1 tab PO BID PRN PRN Reason: Constipation Last Admin: 08/04/16 14:40 Dose: 1 tab Tamsulosin HCl (Flomax) 0.4 mg PO DAILY [facility] Last Admin: 08/08/16 09:25 Dose: 0.4 mg Results - Vital Signs Recent Vital Signs: Last Vital Signs Temp 99.2 F 08/08/16 15:01 Pulse 90 08/08/16 15:15 Resp 20 08/08/16 15:01 BP 137/84 08/08/16 15:01 Pulse Ox 96 08/08/16 15:01 - Labs Result Diagrams: 08/08/16 08:32 08/08/16 08:32 Labs: Laboratory Results - last 24 hr 08/07/16 08/07/16 08/08/16 11:17 21:13 07:09 WBC RBC Hgb Hct MCV MCH MCHC RDW Plt Count MPV Neut % (Auto) Lymph % (Auto) Ceiba % (Auto) Eos % (Auto) Baso % (Auto) Neut # Lymph # Ceiba # Eos # Baso # Neutrophils % (Manual) Band Neutrophils % Lymphocytes % (Manual) Reactive Lymphs % Monocytes % (Manual) Basophils % (Manual) Platelet Estimate Anisocytosis (manual) Sodium Potassium Chloride Carbon Dioxide Anion Gap BUN Creatinine Est GFR ( Amer) Est GFR (Non-Af Amer) POC Glucose (mg/dL) 230 H 216 H 233 H Random Glucose Calcium Phosphorus Magnesium Total Bilirubin AST ALT Alkaline Phosphatase Total Protein Albumin Globulin Albumin/Globulin Ratio Lipase 08/08/16 08/08/16 08/08/16 08:32 11:57 16:21 WBC 18.8 H RBC 4.09 L Hgb 12.6 Hct 37.7 MCV 92.2 MCH 30.8 MCHC 33.4 RDW 14.6 H Plt Count 345 MPV 8.5 Neut % (Auto) 84.6 H Lymph % (Auto) 8.3 L Ceiba % (Auto) 6.3 Eos % (Auto) 0.3 Baso % (Auto) 0.5 Neut # 15.9 H Lymph # 1.6 Ceiba # 1.2 H Eos # 0.1 Baso # 0.1 Neutrophils % (Manual) 80 H Band Neutrophils % 5 H Lymphocytes % (Manual) 5 L Reactive Lymphs % 2 H Monocytes % (Manual) 7 Basophils % (Manual) 1 Platelet Estimate Normal Anisocytosis (manual) Slight Sodium 131 L Potassium 4.2 Chloride 97 L Carbon Dioxide 25 Anion Gap 13 BUN 6 L Creatinine 0.6 L Est GFR ( Amer) > 60 Est GFR (Non-Af Amer) > 60 POC Glucose (mg/dL) 242 H 221 H Random Glucose 213 H Calcium 7.7 L Phosphorus 2.7 Magnesium 2.0 Total Bilirubin 1.7 H AST 31 ALT 46 Alkaline Phosphatase 110 Total Protein 6.5 Albumin 2.7 L Globulin 3.7 Albumin/Globulin Ratio 0.7 L Lipase 181 08/08/16 21:23 WBC RBC Hgb Hct MCV MCH MCHC RDW Plt Count MPV Neut % (Auto) Lymph % (Auto) Ceiba % (Auto) Eos % (Auto) Baso % (Auto) Neut # Lymph # Ceiba # Eos # Baso # Neutrophils % (Manual) Band Neutrophils % Lymphocytes % (Manual) Reactive Lymphs % Monocytes % (Manual) Basophils % (Manual) Platelet Estimate Anisocytosis (manual) Sodium Potassium Chloride Carbon Dioxide Anion Gap BUN Creatinine Est GFR ( Amer) Est GFR (Non-Af Amer) POC Glucose (mg/dL) 227 H Random Glucose Calcium Phosphorus Magnesium Total Bilirubin AST ALT Alkaline Phosphatase Total Protein Albumin Globulin Albumin/Globulin Ratio Lipase Attending/Attestation - Attestation I have personally seen and examined this patient.: Yes I have fully participated in the care of the patient.: Yes I have reviewed all pertinent clinical information: Yes Notes (Text): 08/08/16 21:29 Pt was seen and examined at bedside on 08/07/16 Agree with above note and assessment Pt with GS pancreatitis with Abn LFTs with Leucocystosis C/w current mx Trend LFTs GI note reviewed Plan D/w Hospitalist ERCP report reviewed. Plan d/w pt in detail Risk and benefit explained in detail
[2016-08-07] MEDS ORDERED: HYDROmorphone 0.5 mg/0.5 ml ISec IVP PRN (08:37)
[2016-08-07 09:54] LABS: NEUTROPHIL 81 % (50-75); TOTAL CELLS COUNTED 100
[2016-08-07] MEDS: Potassium & Sodium Phosphate PO SCH ×2 (10:42→19:17)
--- NOTE | 2016-08-07 13:17 | PN ---
DATE: 08/07/2016 LOCATION: 361, bed B. This is a 46-year-old male seen and examined at rounds today with period of insomnia again and still complaining of intermittent period of abdominal pain on and off, but less than before. The patient d enied any nausea or vomiting or evidence of active bleeding this morning. It has to be mentioned that the surgical consultation was called for potential cholecystectomy due to the abnormal finding of the ERCP with obstructed cystic duct as well as non-visualized gallbladder, most likely secondary to obstructed cystic duct by a stone. Scheduled for potential surgery on . The entire chart is reviewed including, but not limited to the most recent lab and radiology study re sults, current and the previous medication lists, current and the previous medical events, allergy to medication list. Case was discussed at length with the staff. Today's white blood cell is still el evated to 19.4, but normal hemoglobin and hematocrit and normal platelet count with low potassium 3.4 and low BUN and creatinine. Blood glucose level of 236 with low calcium 7.1 and total bilirubin 1.7 with low albumin and low tota l protein. Lipase, amylase level was reported yesterday to be normal. PHYSICAL EXAMINATION: GENERAL: A 46-year-old male. VITAL SIGNS: Afebrile with pulse of 96, respiratory rate 20-22, blood pressure of 136/70. HEENT: Showed pale, dry oral mucoid membrane. Nonicteric sclerae. LUNGS: Few scattered crepitation, decreased air entry at bases. HEART: Positive S1 and S2. ABDOMEN: Soft. Bowel sounds are present with slight generalized tenderness. No mass or organomegal y. No rebound tenderness or guarding. RECTAL: The patient refused. EXTREMITIES: Without edema, clubbing or cyanosis. NEUROLOGIC: No reported neurological deficits, sensory or motor. IMPRESSION: 1. Acute pancreatitis, believed to be secondary to biliary pancreatitis. 2. Mild jaundice, with abnormal liver function tests, improving. 3. Non-visualized cystic duct and gallbladder, most likely secondary to cystic duct obstruction, mos t likely with a stone impaction. 4. Reexacerbation of peptic ulcer disease. SUGGESTION: 1. Agree with your plan. 2. Agree with your plan regarding surgical interference. 3. Rehydration. 4. Further recommendation and evaluation to follow. 5. Continue IV antibiotic with rehydration. Dk Matias MD cc: 14 TT: 08/07/2016 13:16:43 Confirmation # [id number] Dictation # [id number] tn
--- NOTE | 2016-08-07 14:09 | CP.PCM.PN ---
Subjective - Date & Time of Evaluation Date of Evaluation: 08/07/16 Time of Evaluation: 08:50 - Subjective Subjective: Medicine Note- Hospitalist Service Patient was seen and examined at bedside. Family at bedside. Patient reports he is tolerating PO diet. He has some mild RUQ pain. Had normal BM. No events overnight, per nursing. Objective - Vital Signs/Intake and Output Vital Signs (last 24 hours): Temp Pulse Resp BP Pulse Ox 98.1 F 102 H 20 131/79 96 08/07/16 08:20 08/07/16 13:33 08/07/16 08:20 08/07/16 08:20 08/07/16 08:20 Intake and Output: 08/07/16 08/07/16 06:59 18:59 Intake Total 900 940 Balance 900 940 - Medications Medications: Current Medications Albuterol/Ipratropium (Duoneb 3 Mg/0.5 Mg (3 Ml) Ud) 3 ml INH RQ6 PRN PRN Reason: Shortness of Breath Last Admin: 08/04/16 20:51 Dose: 3 ml Hydromorphone HCl (Dilaudid) 0.5 mg IVP Q4H PRN PRN Reason: Pain, moderate (4-7) Metronidazole (Flagyl) 100 mls @ 100 mls/hr IVPB Q8 [facility] Last Admin: 08/07/16 13:04 Dose: 100 mls/hr Sodium Chloride (Sodium Chloride 0.9%) 1,000 mls @ 80 mls/hr IV .[id number] [facility] Last Admin: 08/06/16 18:43 Dose: Not Given Ciprofloxacin (Cipro 400mg/200ml Dsw) 200 mls @ 133 mls/hr IVPB Q12H [facility] Last Admin: 08/07/16 05:15 Dose: 133 mls/hr Metoclopramide HCl (Reglan) 5 mg IVP ACHS [facility] Last Admin: 08/07/16 13:05 Dose: 5 mg Ondansetron HCl (Zofran Inj) 4 mg IVP Q6 PRN PRN Reason: Nausea/Vomiting Pantoprazole Sodium (Protonix Inj) 40 mg IVP DAILY [facility] Last Admin: 08/07/16 10:41 Dose: 40 mg Potassium Chloride (Klor-Con 10) 40 meq PO ONCE ONE Stop: 08/08/16 13:51 Potassium Phos/Sodium Phos (Neutra-Phos) 1 pkt PO BID [facility] Stop: 08/08/16 07:00 Last Admin: 08/07/16 10:42 Dose: 1 pkt Senna/Docusate Sodium (Senokot S 50 Mg-8.6 Mg) 1 tab PO BID PRN PRN Reason: Constipation Last Admin: 08/04/16 14:40 Dose: 1 tab - Labs Labs: 08/07/16 08:00 08/07/16 08:00 - Constitutional Appears: Non-toxic, No Acute Distress - Head Exam Head Exam: ATRAUMATIC, NORMAL INSPECTION, NORMOCEPHALIC - Eye Exam Pupil Exam: NORMAL ACCOMODATION, PERRL - ENT Exam ENT Exam: Mucous Membranes Moist - Respiratory Exam Respiratory Exam: Clear to Ausculation Bilateral, NORMAL BREATHING PATTERN. absent: Rales, Rhonchi, Wheezes - Cardiovascular Exam Cardiovascular Exam: REGULAR RHYTHM, +S1, +S2 - GI/Abdominal Exam GI & Abdominal Exam: Soft, Tenderness (RUQ tenderness, mild), Normal Bowel Sounds. absent: Diminished Bowel Sounds, Hypoactive Bowel Sounds - Extremities Exam Extremities Exam: Normal Capillary Refill - Neurological Exam Neurological Exam: Alert, Awake, Oriented x3 - Psychiatric Exam Psychiatric exam: Normal Affect, Normal Mood - Skin Skin Exam: Dry, Intact, Normal Color, Warm Assessment and Plan - Assessment and Plan (Free Text) Assessment: Acute pancreatitis, acute 08/07: Tolerating Liquid diet. Mild RUQ pain. 08/06: Lipase/amylase normalized. [id number]. Minimal abdominal pain today. Mildly ( +) Candelario's Hold Dilaudid. 08/05: Lipase 67 / Amylase 34. mid-epigastric pain decreased to 1/10. Liquid diet 08/04: mid-epigastric pain decreased to 3/10. f/u lipase/amylase. 08/03: lipase 107 / amylase 72 - resolved; Mid-epigastric abdominal pain persists 08/02: Lipase - 379, downtrending Dyess's criteria at 24 hours: Positive for glucose >200 (232), LDH > 350 (3800) , AST >250 (603), WBC >34035 (35964). Lipase on admission 29279 Amylase on admission 1935 No ICU at the moment per Dr. Butterfield. Abd/pelv CT showed acute/severe pancreatitis without focal abnormalities to suggest necrotizing pancreatitis. Patient received 2 bolus in the ED of NSS. Start aggressive fluid resuscitation with NSS at 200 cc/hr for 3 L. NPO except meds Zofran Q4H PRN for nausea CMP Q8H and replace as needed Liver enzymes trending down Total bilirubin, elevated, acute 08/07- Bilirubin down to 1.7 -08/05-08/06: T.bili downtrending. LFTs normalized. ERCP performed with biliary stenting 08/05. -f/u Surgery Consult, Dr. Chung, likely surgery on Tuesday -GI consult placed- Dr. Matias- 08/06: Rec Surgical consult for questionable CBD filling defect and prior US showing cholelithiasis. 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 Filling defect in distal CBD (air vs stone). 08/02: ERCP- stopped early due to hypoxia. Major papilla was not found, major papilla appeared congested/erythematous/stenotic Rec full liquid diet; continue current meds; repeat ERCP for retreatment 07/31: MRCP- acute pancreatitis, possibility of necrosis. Inflammatory changes in upper abdomen consistent with acute pancreatitis. f/u MRCP study after 1-2 weeks suggested to eval for pseudocyst formation. contracted gallbladder with multiple stones. T. Carrillo on admission 6.6, currently 7.9 LFT trending down, AST/ALT 603/813 on admission, (07/31) 264/577 - f/u todays labs RUQ US shows heterogeneous echotexture of the hepatic parenchyma could be due to hepatic steatosis versus parenchymal disease. If indicated, MRI can be obtained for better evaluation. Cholelithiasis. No definite evidence of cholecystitis. Nuclear medicine HIDA scan can be obtained if indicated. -Lipid panel - Triglycerides 161, Cholesterol 157, LDL 72, HDL 26L Leukocytosis 08/07: WBC 19.4, f/u blood cultures, Tmax 100.0 on 08/05. afebrile otherwise 08/06: WBC 22.5, uptrending. Start Cipro 400mg IVPB Q12H (Q12 per pharmacy). Continue Flagyl. 08/05: WBC 20.9- continue Flagyl. UA Negative 08/04: WBC 19.4, 12 Bands. 08/03: WBC 17.5 , downtrending; 08/02: WBC 17.8 , downtrending; BC neg x1day; UC neg. Likely secondary to acute pancreatitis. WBC 22.1 trending down, Afebrile. Flagyl 500mg IV q8H started per Dr. Matias (since 07/31) BC neg x5day UC 07/30 neg CXR in obs series unremarkable. Lactic Acid 3.3 on admission. Status: Acute Metabolic acidosis, increased anion gap (IAG), acute Measured anion gap: 21 on admission Lactic Acid 3.3 as per VBG. Serum Ketones: negative Management as above. Hyperglycemia, acute Hgb A1C 5.6 Moderate, continue to monitor Random glucose on admission 232. Serum Ketones: negative. Constipation, acute - resolving 08/05-08/06: continue Senokot S 1tab PO BID PRN, constipation. 08/04: Miralax once. Senokot S 1tab PO BID PRN, constipation. 08/02: persists - fleet enema. Abdomen Obs series is unremarkable. No evidence of mechanical bowel obstruction. Dulcolax suppository X 1 Having BM, but hard stool Diarrhea, acute - resolved 08/05: Continue Neutraphos BID (STOP 08/08 am) -08/04: 1 eipisode, decreasing. Neutraphos dec to BID. -08/03: 4 episodes of diarrhea likely due to neutraphos TID. Electrolyte Imbalance -Hypokalemia, 08/02: K2.9 KCl 20meq IVPB x2 -> 08/03: K3.1 KPhos 15mmol in NS 250mL -> K3.1 KCl 10meq x2 bag, KPhos 15mmol in NS 250mL -> 08/04: K3.3 KCl IV 20meq + KCl PO 20 -- Monitor and replete. -Hypophosphatemia, 08/02: P1.0 KPhos 15mmol in NS 250mL + Neutraphos PO 1 packet -> 08/03: P 1.1 -> Neutraphos PO TID + KPhos 15mmol in NS 250mL -> 08/04: 1.9 -> Neutraphos PO BID (reduced due to diarrhea). -- Monitor -> Neutraphos set to stop 08/08 in am Urinary Frequency Per Dr. Chung, patient complained of urinary frequency. Will start Flomax 0.4mg PO Daily and order Renal/Urinary bladder U/S Prophylactic measure Protonix 40 mg IVP daily SCDs Avoid chemical anticoagulation and NSAID to prevent hemorrhagic pancreatic necrosis.
[2016-08-07] MEDS ORDERED: Potassium Chloride 20 mEq ER Tab PO ONE (14:30)
[2016-08-07] MEDS: (Lantus) Insulin Glargine, Recombinant SC SCH (16:33)
--- NOTE | 2016-08-07 18:54 | US ---
Renal bladder ultrasound 08/07/2016. History: Urinary frequency. Sonographic evaluation of the kidneys and bladder performed. Correlation made with prior right MRI of the abdomen 07/31/2016. The right kidney measures 13.1 x 5.3 x 5.0 cm. Left kidney measures 14.8 x 6.0 x 5.7 cm. The kidneys exhibit relatively normal echotexture. No evidence of shadowing calculi or hydronephrosis. No obvious renal mass or collection. The prevoid bladder volume calculated 214 and postvoid at 8.4 cc. Both ureteral jets visible. No intraluminal calculi or obvious bladder wall masses. Prostate gland volume estimated at approximately 22 cc. Impression: No evidence of nephrolithiasis or hydronephrosis. No significant postvoid residual as above.
[2016-08-07] MEDS: Sodium Chloride 0.9% 1,000 ML IV SCH ×2 (19:18→21:43)
--- NOTE | 2016-08-08 02:36 | CP.PCM.PN ---
Subjective - Date & Time of Evaluation Date of Evaluation: 08/08/16 Time of Evaluation: 00:20 - Subjective Subjective: Internal medicine progress note for Hospitalist service- Odalis Ramsey, PGY-1 Pt S & E at bedside. Pt reports feeling much improved after showering/cleaning self up. Abdominal pain is minimal. Denies N/V/F/C, SOB, CP. Is tolerating a diet. Slept ok. Objective - Vital Signs/Intake and Output Vital Signs (last 24 hours): Temp Pulse Resp BP Pulse Ox 99.5 F 104 H 20 135/75 95 08/08/16 00:00 08/08/16 00:00 08/08/16 00:00 08/08/16 00:00 08/08/16 00:00 Intake and Output: 08/07/16 08/08/16 18:59 06:59 Intake Total 1830 Balance 1830 - Medications Medications: Current Medications Albuterol/Ipratropium (Duoneb 3 Mg/0.5 Mg (3 Ml) Ud) 3 ml INH RQ6 PRN PRN Reason: Shortness of Breath Last Admin: 08/04/16 20:51 Dose: 3 ml Hydromorphone HCl (Dilaudid) 0.5 mg IVP Q4H PRN PRN Reason: Pain, moderate (4-7) Metronidazole (Flagyl) 100 mls @ 100 mls/hr IVPB Q8 [facility] Last Admin: 08/07/16 21:40 Dose: 100 mls/hr Sodium Chloride (Sodium Chloride 0.9%) 1,000 mls @ 80 mls/hr IV .[id number] [facility] Last Admin: 08/07/16 21:43 Dose: 80 mls/hr Ciprofloxacin (Cipro 400mg/200ml Dsw) 200 mls @ 133 mls/hr IVPB Q12H [facility] Last Admin: 08/07/16 17:00 Dose: 133 mls/hr Insulin Glargine (Lantus) 10 unit SC DAILY [facility] Last Admin: 08/07/16 16:33 Dose: 10 u Metoclopramide HCl (Reglan) 5 mg IVP ACHS [facility] Last Admin: 08/07/16 21:41 Dose: 5 mg Ondansetron HCl (Zofran Inj) 4 mg IVP Q6 PRN PRN Reason: Nausea/Vomiting Pantoprazole Sodium (Protonix Inj) 40 mg IVP DAILY [facility] Last Admin: 08/07/16 10:41 Dose: 40 mg Potassium Phos/Sodium Phos (Neutra-Phos) 1 pkt PO BID [facility] Stop: 08/08/16 07:00 Last Admin: 08/07/16 19:17 Dose: 1 pkt Senna/Docusate Sodium (Senokot S 50 Mg-8.6 Mg) 1 tab PO BID PRN PRN Reason: Constipation Last Admin: 08/04/16 14:40 Dose: 1 tab Tamsulosin HCl (Flomax) 0.4 mg PO DAILY [facility] Last Admin: 08/07/16 15:28 Dose: 0.4 mg - Labs Labs: 08/07/16 08:00 08/07/16 08:00 - Constitutional Appears: Non-toxic, No Acute Distress - Head Exam Head Exam: ATRAUMATIC, NORMAL INSPECTION, NORMOCEPHALIC - Eye Exam Eye Exam: EOMI, Normal appearance, PERRL Pupil Exam: NORMAL ACCOMODATION, PERRL - ENT Exam ENT Exam: Mucous Membranes Moist, Normal Exam - Neck Exam Neck Exam: Full ROM, Normal Inspection - Respiratory Exam Respiratory Exam: Clear to Ausculation Bilateral, NORMAL BREATHING PATTERN. absent: Rales, Rhonchi, Wheezes - Cardiovascular Exam Cardiovascular Exam: REGULAR RHYTHM, +S1, +S2 - GI/Abdominal Exam GI & Abdominal Exam: Soft, Tenderness (Minimal, periumbilical), Normal Bowel Sounds. absent: Distended - Back Exam Back Exam: NORMAL INSPECTION - Neurological Exam Neurological Exam: Alert, Awake, CN II-XII Intact, Oriented x3 - Psychiatric Exam Psychiatric exam: Normal Affect, Normal Mood - Skin Skin Exam: Dry, Intact, Normal Color, Warm Assessment and Plan - Assessment and Plan (Free Text) Assessment: Acute pancreatitis, acute 08/08: Tolerating liquid diet. Mild periumbilical pain. 08/07: Tolerating Liquid diet. Mild RUQ pain. 08/06: Lipase/amylase normalized. [id number]. Minimal abdominal pain today. Mildly ( +) Candelario's Hold Dilaudid. 08/05: Lipase 67 / Amylase 34. mid-epigastric pain decreased to 1/10. Liquid diet 08/04: mid-epigastric pain decreased to 3/10. f/u lipase/amylase. 08/03: lipase 107 / amylase 72 - resolved; Mid-epigastric abdominal pain persists 08/02: Lipase - 379, downtrending Adriel's criteria at 24 hours: Positive for glucose >200 (232), LDH > 350 (3800) , AST >250 (603), WBC >20906 (07874). Lipase on admission 04277, now 115 Amylase on admission 1935, now 38 Abd/pelv CT showed acute/severe pancreatitis without focal abnormalities to suggest necrotizing pancreatitis. Zofran Q4H PRN for nausea CMP Q8H and replace as needed Liver enzymes trending down Acute elevated Total bilirubin -08/08: FU T bili -08/07- Bilirubin down to 1.7 from 6.6 on admission -08/05-08/06: T.bili downtrending. LFTs normalized. ERCP performed with biliary stenting 08/05. -GI consult placed- Dr. Matias- 08/06: Rec Surgical consult for questionable CBD filling defect and prior US showing cholelithiasis. 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 Filling defect in distal CBD (air vs stone). 08/02: ERCP- stopped early due to hypoxia. Major papilla was not found, major papilla appeared congested/erythematous/stenotic Rec full liquid diet; continue current meds; repeat ERCP for retreatment 07/31: MRCP- acute pancreatitis, possibility of necrosis. Inflammatory changes in upper abdomen consistent with acute pancreatitis. f/u MRCP study after 1-2 weeks suggested to eval for pseudocyst formation. contracted gallbladder with multiple stones. RUQ US w/heterogeneous echo texture of hepatic parenchyma, poss D/T hepatic steatosis vs. parenchymal disease. Cholelithiasis. No definite evidence of cholecystitis. Nuclear medicine HIDA scan or MRI can be obtained if indicated. -Lipid panel - Triglycerides 161, Cholesterol 157, LDL 72, HDL 26L -For OR 08/09 per surgery- cholecystectomy Leukocytosis 08/08: FU WBC, Afebrile/24H 08/07: WBC 19.4, Tmax 100.0 on 08/05. afebrile otherwise 08/06: WBC 22.5, uptrending. Start Cipro 400mg IVPB Q12H (Q12 per pharmacy). Continue Flagyl. 08/05: WBC 20.9- continue Flagyl. UA Negative 08/04: WBC 19.4, 12 Bands. 08/03: WBC 17.5 , downtrending; 08/02: WBC 17.8 , downtrending; BC neg x1day; UC neg. Likely secondary to acute pancreatitis. WBC 22.1 trending down, Afebrile. Flagyl 500mg IV q8H started per Dr. Matias (since 07/31) BC neg x5day UC 07/30 neg CXR in obs series neg Lactic Acid 3.3 on admission. Metabolic acidosis, increased anion gap (IAG), acute- resolved Measured anion gap: 21 on admission Lactic Acid 3.3 as per VBG. Serum Ketones: negative Management as above. Hyperglycemia, acute Hgb A1c 5.6 Blood sugar range: 100-300 Random glucose on admission 232. Serum Ketones: neg Monitor Constipation, acute - resolving 08/05-08/07: cont Senokot S 1tab PO BID PRN, constipation. 08/04: Miralax once. Senokot S 1tab PO BID PRN, constipation. 08/02: persists - fleet enema. Abdomen Obs series is unremarkable. No evidence of mechanical bowel obstruction. Dulcolax suppository X 1 Having BM, but hard stool Diarrhea, acute - resolved 08/05: Continue Neutraphos BID (STOP 08/08 am) -08/04: 1 eipisode, decreasing. Neutraphos dec to BID. -08/03: 4 episodes of diarrhea likely due to neutraphos TID. Electrolyte Imbalance -Hypokalemia, 08/02: K2.9 KCl 20meq IVPB x2 -> 08/03: K3.1 KPhos 15mmol in NS 250mL -> K3.1 KCl 10meq x2 bag, KPhos 15mmol in NS 250mL -> 08/04: K3.3 KCl IV 20meq + KCl PO 20 -- Monitor and replete. -Hypophosphatemia, 08/02: P1.0 KPhos 15mmol in NS 250mL + Neutraphos PO 1 packet -> 08/03: P 1.1 -> Neutraphos PO TID + KPhos 15mmol in NS 250mL -> 08/04: 1.9 -> Neutraphos PO BID (reduced due to diarrhea). -- Monitor -> Neutraphos set to stop 08/08 in am Urinary Frequency Per Dr. Chung, patient complained of urinary frequency. Will start Flomax 0.4mg PO Daily and order Renal/Urinary bladder U/S Prophylactic measure Protonix 40 mg IVP daily SCDs Avoid chemical anticoagulation and NSAID to prevent hemorrhagic pancreatic necrosis. Dispo NPO after MN Tuesday OR tuesday for cholecystectomy Will DW attending
[2016-08-08] MEDS: metroNIDAZOLE IV 500 mg/100 ml 100 ML IVPB SCH ×3 (05:00→21:21)
[2016-08-08] MEDS: Ciprofloxacin 400mg/200ml D5W 200 ML IVPB SCH ×2 (05:42→17:15)
[2016-08-08 08:43] LABS: BASO # 0.1 K/uL (0.0-0.2); BASO % 0.5 % (0.0-2.0); EOS # 0.1 K/uL (0.0-0.7); EOS % 0.3 % (0.0-4.0); HEMATOCRIT 37.7 % (35.0-51.0); LYMPH # 1.6 K/uL (1.0-4.3); LYMPH % 8.3 % (20.0-40.0); MEAN CELL VOLUME 92.2 fL (80.0-94.0); MEAN CORPUSCULAR HEMOGLOBIN 30.8 pg (27.0-31.0); MEAN CORPUSCULAR HGB CONC 33.4 g/dL (33.0-37.0); MEAN PLATELET VOLUME 8.5 fL (7.2-11.7); MONO # 1.2 K/uL (0.0-0.8); MONO % 6.3 % (0.0-10.0); PLATELET COUNT 345 K/uL (130-400); RED CELL DISTRIBUTION WIDTH 14.6 % (11.5-14.5); WHITE BLOOD COUNT 18.8 K/uL (4.8-10.8)
[2016-08-08 08:52] LABS: CHLORIDE 97 mmol/L (98-107); POTASSIUM 4.2 mmol/L (3.6-5.2); SODIUM 131 mmol/L (132-148)
[2016-08-08 08:54] LABS: BILIRUBIN,TOTAL 1.7 mg/dL (0.2-1.3); CARBON DIOXIDE 25 mmol/L (22-30); GFR AFRICAN-AMERICAN > 60
[2016-08-08 08:55] LABS: ALB/GLOB RATIO 0.7 (1.0-2.1); ALKALINE PHOSPHATASE 110 U/L (38-126); ALT/SGPT 46 U/L (21-72); AST/SGOT 31 U/L (17-59); BLOOD UREA NITROGEN 6 mg/dL (9-20); CALCIUM 7.7 mg/dl (8.6-10.4); GLUCOSE,RANDOM 213 mg/dL (75-110); PHOSPHOROUS 2.7 mg/dL (2.5-4.5); TOTAL PROTEIN 6.5 g/dL (6.3-8.3)
--- NOTE | 2016-08-08 09:17 | PN ---
DATE: 08/08/2016 LOCATION: 361, bed B. This is a 46-year-old male seen and examined at rounds early today with intermittent periods of abdom inal pain with a complaint of insomnia. No reported nausea or vomiting. The entire chart is reviewe d, including but not limited to the most recent lab and radiology study results, current and the prev ious medication list, current and the previous medical events. Case discussed at length with the sta ff. The patient still has leukocytosis, but with normal hemoglobin and hematocrit with blood glucose level of 233 with low calcium and mildly elevated total bilirubin to 1.7, with subsequent drop since ERCP with biliary stent insertion was performed. He still has low albumin and low total protein. The patient had ultrasound of the renal bladder yesterday, which showed no evidence of nephrolithiasi s or hydronephrosis. PHYSICAL EXAMINATION: GENERAL: A 46-year-old male appeared to be awake, alert, oriented. VITAL SIGNS: Low-grade temperature of 99.5 and heart rate of 100, respiratory rate 20-22 with blood pressure of 126/72. HEENT: Showed pale, dry oral mucoid membrane with slightly icteric sclerae. LUNGS: Scattered mild crepitations with few rhonchi bilaterally. Breathing sounds are present. HEART: Positive S1 and S2 with increased rate. ABDOMEN: Soft with generalized tenderness. Bowel sounds are present. No mass or organomegaly. No rebound tenderness or guarding. EXTREMITIES: Without significant edema, clubbing, or cyanosis. NEUROLOGIC: No reported new neurological deficits, sensory or motor. It has to be mentioned that the patient had been feeling much better clinically and psychologically t his morning, and his abdominal pain, as per his statement, very minimum and much less than before. IMPRESSION: 1. Acute pancreatitis, subsiding. 2. Peptic ulcer disease. 3. Known history of hyperglycemia. 4. Abnormal endoscopic retrograde cholangiopancreatogram with obstructed cystic duct indicative of c holelithiasis. 5. Mild jaundice, gradually improving post-endoscopic retrograde cholangiopancreatogram with biliary stent insertion. SUGGESTION: 1. Continue current management. 2. Repeat blood culture x 2. 3. May add gentamicin IV. The patient is scheduled for potential cholecystectomy. Further recommendation to follow post-surgery. Dk Matias MD cc: 14 TT: 08/08/2016 09:16:53 Confirmation # [id number] Dictation # [id number]
[2016-08-08] MEDS: (Lantus) Insulin Glargine, Recombinant SC SCH (09:28)
[2016-08-08] MEDS: Sodium Chloride 0.9% 1,000 ML IV SCH ×2 (09:37→21:24)
--- NOTE | 2016-08-08 09:52 | CP.PCM.PN ---
<Ian Schmidt - Last Filed: 08/08/16 09:47> Subjective - Date & Time of Evaluation Date of Evaluation: 08/08/16 Time of Evaluation: 07:50 - Subjective Subjective: General Surgery Pt S&E, NAEO. Feeling better today, no complaints. Tolerating CLD. Objective - Vital Signs/Intake and Output Vital Signs (last 24 hours): Temp Pulse Resp BP Pulse Ox 98.5 F 90 20 158/86 H 95 08/08/16 08:15 08/08/16 08:15 08/08/16 08:15 08/08/16 08:15 08/08/16 08:15 - Medications Medications: Current Medications Albuterol/Ipratropium (Duoneb 3 Mg/0.5 Mg (3 Ml) Ud) 3 ml INH RQ6 PRN PRN Reason: Shortness of Breath Last Admin: 08/04/16 20:51 Dose: 3 ml Hydromorphone HCl (Dilaudid) 0.5 mg IVP Q4H PRN PRN Reason: Pain, moderate (4-7) Metronidazole (Flagyl) 100 mls @ 100 mls/hr IVPB Q8 [facility] Last Admin: 08/08/16 05:00 Dose: 100 mls/hr Sodium Chloride (Sodium Chloride 0.9%) 1,000 mls @ 80 mls/hr IV .[id number] [facility] Last Admin: 08/08/16 09:37 Dose: 80 mls/hr Ciprofloxacin (Cipro 400mg/200ml Dsw) 200 mls @ 133 mls/hr IVPB Q12H [facility] Last Admin: 08/08/16 05:42 Dose: 133 mls/hr Insulin Glargine (Lantus) 10 unit SC DAILY [facility] Last Admin: 08/08/16 09:28 Dose: 10 u Metoclopramide HCl (Reglan) 5 mg IVP ACHS [facility] Last Admin: 08/08/16 09:28 Dose: Not Given Ondansetron HCl (Zofran Inj) 4 mg IVP Q6 PRN PRN Reason: Nausea/Vomiting Pantoprazole Sodium (Protonix Inj) 40 mg IVP DAILY [facility] Last Admin: 08/08/16 09:26 Dose: 40 mg Senna/Docusate Sodium (Senokot S 50 Mg-8.6 Mg) 1 tab PO BID PRN PRN Reason: Constipation Last Admin: 08/04/16 14:40 Dose: 1 tab Tamsulosin HCl (Flomax) 0.4 mg PO DAILY [facility] Last Admin: 08/08/16 09:25 Dose: 0.4 mg - Labs Labs: 08/08/16 08:32 08/08/16 08:32 - Constitutional Appears: Non-toxic, No Acute Distress - Head Exam Head Exam: ATRAUMATIC, NORMOCEPHALIC - Eye Exam Eye Exam: EOMI. absent: Scleral icterus - Respiratory Exam Respiratory Exam: NORMAL BREATHING PATTERN. absent: Respiratory Distress - GI/Abdominal Exam GI & Abdominal Exam: Soft. absent: Distended, Firm, Guarding, Rigid, Tenderness , Rebound - Neurological Exam Neurological Exam: Alert, Awake - Skin Skin Exam: Dry, Warm Assessment and Plan - Assessment and Plan (Free Text) Assessment: 46M with gallstone pancreaitis; resolving. Plan: NPO p MN To OR tomorrow. Consent in chart. D/W Dr. Sheldon Schmidt PGY3 <Papa Chung B - Last Filed: 08/08/16 21:39> Objective - Vital Signs/Intake and Output Vital Signs (last 24 hours): Temp Pulse Resp BP Pulse Ox 99.2 F 90 20 137/84 96 08/08/16 15:01 08/08/16 15:15 08/08/16 15:01 08/08/16 15:01 08/08/16 15:01 Intake and Output: 08/08/16 08/09/16 18:59 06:59 Intake Total 1140 Balance 1140 - Medications Medications: Current Medications Albuterol/Ipratropium (Duoneb 3 Mg/0.5 Mg (3 Ml) Ud) 3 ml INH RQ6 PRN PRN Reason: Shortness of Breath Last Admin: 08/04/16 20:51 Dose: 3 ml Hydromorphone HCl (Dilaudid) 0.5 mg IVP Q4H PRN PRN Reason: Pain, moderate (4-7) Metronidazole (Flagyl) 100 mls @ 100 mls/hr IVPB Q8 [facility] Last Admin: 08/08/16 21:21 Dose: 100 mls/hr Sodium Chloride (Sodium Chloride 0.9%) 1,000 mls @ 80 mls/hr IV .[id number] [facility] Last Admin: 08/08/16 21:24 Dose: Not Given Ciprofloxacin (Cipro 400mg/200ml Dsw) 200 mls @ 133 mls/hr IVPB Q12H [facility] Last Admin: 08/08/16 17:15 Dose: 133 mls/hr Insulin Glargine (Lantus) 10 unit SC DAILY [facility] Last Admin: 08/08/16 09:28 Dose: 10 u Metoclopramide HCl (Reglan) 5 mg IVP ACHS [facility] Last Admin: 08/08/16 21:22 Dose: 5 mg Ondansetron HCl (Zofran Inj) 4 mg IVP Q6 PRN PRN Reason: Nausea/Vomiting Pantoprazole Sodium (Protonix Inj) 40 mg IVP DAILY [facility] Last Admin: 08/08/16 09:26 Dose: 40 mg Senna/Docusate Sodium (Senokot S 50 Mg-8.6 Mg) 1 tab PO BID PRN PRN Reason: Constipation Last Admin: 08/04/16 14:40 Dose: 1 tab Tamsulosin HCl (Flomax) 0.4 mg PO DAILY [facility] Last Admin: 08/08/16 09:25 Dose: 0.4 mg - Labs Labs: 08/08/16 08:32 08/08/16 08:32 Attending/Attestation - Attestation I have personally seen and examined this patient.: Yes I have fully participated in the care of the patient.: Yes I have reviewed all pertinent clinical information, including history, physical exam and plan: Yes Notes (Text): 08/08/16 21:38 Pt was seen and examined at bedside on 08/08/16 Agree with above note and assessment Pt with Resolving GS pancreatitis with Leucocystosis LFTs trending down. OR for Lap Cholecystectomy possible Open Consent Plan d/w pt in detail Risk and benefit explained in detail
[2016-08-08 10:08] LABS: BASOPHIL 1 % (0-2); NEUTROPHIL 80 % (50-75); REACTIVE LYMPHOCYTES 2 % (0-0); TOTAL CELLS COUNTED 100
[2016-08-08] MEDS ORDERED: Potassium Chloride 10 mEq ER Tab PO ONE (13:50)
--- NOTE | 2016-08-08 16:55 | CP.PCM.PN ---
Subjective - Date & Time of Evaluation Date of Evaluation: 08/08/16 Time of Evaluation: 13:00 - Subjective Subjective: ACUTE CHOLECYSTITIS. CARDIAC STABLE. Objective - Vital Signs/Intake and Output Vital Signs (last 24 hours): Temp Pulse Resp BP Pulse Ox 98.5 F 90 20 158/86 H 95 08/08/16 08:15 08/08/16 15:15 08/08/16 08:15 08/08/16 08:15 08/08/16 08:15 Intake and Output: 08/08/16 08/08/16 06:59 18:59 Intake Total 1140 Balance 1140 - Medications Medications: Current Medications Albuterol/Ipratropium (Duoneb 3 Mg/0.5 Mg (3 Ml) Ud) 3 ml INH RQ6 PRN PRN Reason: Shortness of Breath Last Admin: 08/04/16 20:51 Dose: 3 ml Hydromorphone HCl (Dilaudid) 0.5 mg IVP Q4H PRN PRN Reason: Pain, moderate (4-7) Metronidazole (Flagyl) 100 mls @ 100 mls/hr IVPB Q8 [facility] Last Admin: 08/08/16 13:19 Dose: 100 mls/hr Sodium Chloride (Sodium Chloride 0.9%) 1,000 mls @ 80 mls/hr IV .[id number] [facility] Last Admin: 08/08/16 09:37 Dose: 80 mls/hr Ciprofloxacin (Cipro 400mg/200ml Dsw) 200 mls @ 133 mls/hr IVPB Q12H [facility] Last Admin: 08/08/16 05:42 Dose: 133 mls/hr Insulin Glargine (Lantus) 10 unit SC DAILY [facility] Last Admin: 08/08/16 09:28 Dose: 10 u Metoclopramide HCl (Reglan) 5 mg IVP ACHS [facility] Last Admin: 08/08/16 11:03 Dose: 5 mg Ondansetron HCl (Zofran Inj) 4 mg IVP Q6 PRN PRN Reason: Nausea/Vomiting Pantoprazole Sodium (Protonix Inj) 40 mg IVP DAILY [facility] Last Admin: 08/08/16 09:26 Dose: 40 mg Senna/Docusate Sodium (Senokot S 50 Mg-8.6 Mg) 1 tab PO BID PRN PRN Reason: Constipation Last Admin: 08/04/16 14:40 Dose: 1 tab Tamsulosin HCl (Flomax) 0.4 mg PO DAILY [facility] Last Admin: 08/08/16 09:25 Dose: 0.4 mg - Labs Labs: 08/08/16 08:32 08/08/16 08:32 - Constitutional Appears: No Acute Distress, Chronically Ill - Eye Exam Eye Exam: Normal appearance, PERRL - ENT Exam ENT Exam: Normal Exam - Respiratory Exam Respiratory Exam: Clear to Ausculation Bilateral, NORMAL BREATHING PATTERN - Cardiovascular Exam Cardiovascular Exam: REGULAR RHYTHM, +S1, +S2 - GI/Abdominal Exam GI & Abdominal Exam: Soft, Tenderness, Normal Bowel Sounds - Extremities Exam Extremities Exam: Full ROM, Normal Capillary Refill, Normal Inspection. absent : Joint Swelling, Pedal Edema - Back Exam Back Exam: NORMAL INSPECTION - Neurological Exam Neurological Exam: Alert, Awake, CN II-XII Intact, Normal Gait, Oriented x3 - Psychiatric Exam Psychiatric exam: Normal Affect, Normal Mood Assessment and Plan - Assessment and Plan (Free Text) Assessment: CARDIAC STABLE. Plan: CLEARED FOR SURGERY.
[2016-08-09] MEDS: metroNIDAZOLE IV 500 mg/100 ml 100 ML IVPB SCH ×3 (05:00→21:54)
[2016-08-09] MEDS: Sodium Chloride 0.9% 1,000 ML IV SCH ×4 (05:30→21:54)
[2016-08-09] MEDS: Ciprofloxacin 400mg/200ml D5W 200 ML IVPB SCH ×2 (06:05→18:00)
[2016-08-09] MEDS ORDERED: Midazolam 2 MG/2 ML VIAL ONE (07:50)
[2016-08-09] MEDS ORDERED: Propofol 10 mg/ml Inj (20 ML) ONE (07:51)
[2016-08-09 07:56] LABS: BASO % 0.3 % (0.0-2.0); CHLORIDE 95 mmol/L (98-107); EOS % 0.2 % (0.0-4.0); HEMATOCRIT 36.9 % (35.0-51.0); LYMPH # 1.4 K/uL (1.0-4.3); LYMPH % 8.5 % (20.0-40.0); MEAN CELL VOLUME 91.9 fL (80.0-94.0); MEAN CORPUSCULAR HEMOGLOBIN 30.6 pg (27.0-31.0); MEAN CORPUSCULAR HGB CONC 33.3 g/dL (33.0-37.0); MEAN PLATELET VOLUME 8.4 fL (7.2-11.7); MONO # 0.8 K/uL (0.0-0.8); PLATELET COUNT 362 K/uL (130-400); RED CELL DISTRIBUTION WIDTH 14.5 % (11.5-14.5); WHITE BLOOD COUNT 16.7 K/uL (4.8-10.8)
[2016-08-09 07:57] LABS: POTASSIUM 3.9 mmol/L (3.6-5.2); SODIUM 128 mmol/L (132-148)
[2016-08-09 07:59] LABS: ALB/GLOB RATIO 0.8 (1.0-2.1); ALKALINE PHOSPHATASE 98 U/L (38-126); AST/SGOT 27 U/L (17-59); BILIRUBIN,TOTAL 1.2 mg/dL (0.2-1.3); BLOOD UREA NITROGEN 6 mg/dL (9-20); CALCIUM 7.5 mg/dl (8.6-10.4); CARBON DIOXIDE 21 mmol/L (22-30); GFR AFRICAN-AMERICAN > 60; GLUCOSE,RANDOM 203 mg/dL (75-110)
[2016-08-09 08:00] LABS: ALT/SGPT 37 U/L (21-72)
[2016-08-09] MEDS ORDERED: Lactated Ringer's 1,000 ML IV ONE ×4 (08:01→09:34)
[2016-08-09] MEDS: ceFAZolin IV 2 gm in Dextrose 50 ML IVPB ONE ×2 (08:02→08:30)
[2016-08-09] MEDS: Bupivacaine HCl 0.5% PF (10 ml) Inj ONE ×2 (08:06→08:40)
--- NOTE | 2016-08-09 08:06 | CP.PCM.PN ---
Subjective - Date & Time of Evaluation Date of Evaluation: 08/09/16 Time of Evaluation: 07:05 - Subjective Subjective: PGY-[address] Jackson Pt seen and examined at bedside. Pt reports abdominal pain is much improved. Patient was NPO for OR today. Currently s/p robotic assisted laparoscopic cholecystectomy (surgery 08/09). Pain is well managed. Denies f/c, chest pain, palpitations, SOB, n/v, d/c, urinary symptoms, LE edema, or any additional complaints. Objective - Vital Signs/Intake and Output Vital Signs (last 24 hours): Temp Pulse Resp BP Pulse Ox 98.7 F 95 H 20 138/79 97 08/09/16 00:00 08/09/16 00:00 08/09/16 00:00 08/09/16 00:00 08/09/16 00:00 - Medications Medications: Current Medications Albuterol/Ipratropium (Duoneb 3 Mg/0.5 Mg (3 Ml) Ud) 3 ml INH RQ6 PRN PRN Reason: Shortness of Breath Last Admin: 08/04/16 20:51 Dose: 3 ml Hydromorphone HCl (Dilaudid) 0.5 mg IVP Q4H PRN PRN Reason: Pain, moderate (4-7) Metronidazole (Flagyl) 100 mls @ 100 mls/hr IVPB Q8 [facility] Last Admin: 08/09/16 05:00 Dose: 100 mls/hr Sodium Chloride (Sodium Chloride 0.9%) 1,000 mls @ 80 mls/hr IV .[id number] [facility] Last Admin: 08/09/16 05:31 Dose: 80 mls/hr Ciprofloxacin (Cipro 400mg/200ml Dsw) 200 mls @ 133 mls/hr IVPB Q12H [facility] Last Admin: 08/09/16 06:05 Dose: 133 mls/hr Insulin Glargine (Lantus) 10 unit SC DAILY [facility] Last Admin: 08/08/16 09:28 Dose: 10 u Metoclopramide HCl (Reglan) 5 mg IVP ACHS [facility] Last Admin: 08/09/16 07:53 Dose: Not Given Ondansetron HCl (Zofran Inj) 4 mg IVP Q6 PRN PRN Reason: Nausea/Vomiting Pantoprazole Sodium (Protonix Inj) 40 mg IVP DAILY [facility] Last Admin: 08/08/16 09:26 Dose: 40 mg Senna/Docusate Sodium (Senokot S 50 Mg-8.6 Mg) 1 tab PO BID PRN PRN Reason: Constipation Last Admin: 08/04/16 14:40 Dose: 1 tab Tamsulosin HCl (Flomax) 0.4 mg PO DAILY [facility] Last Admin: 08/08/16 09:25 Dose: 0.4 mg - Labs Labs: 08/09/16 07:38 08/09/16 07:38 - Additional Findings Additional findings: - Constitutional Appears: Non-toxic, No Acute Distress - Head Exam Head Exam: ATRAUMATIC, NORMAL INSPECTION, NORMOCEPHALIC - Eye Exam Eye Exam: EOMI, Normal appearance, PERRL Pupil Exam: NORMAL ACCOMODATION, PERRL - ENT Exam ENT Exam: Mucous Membranes Moist, Normal Exam - Neck Exam Neck Exam: Full ROM, Normal Inspection - Respiratory Exam Respiratory Exam: Clear to Ausculation Bilateral, NORMAL BREATHING PATTERN. absent: Rales, Rhonchi, Wheezes - Cardiovascular Exam Cardiovascular Exam: REGULAR RHYTHM, +S1, +S2 - GI/Abdominal Exam GI & Abdominal Exam: Soft, Tenderness (david-incisional), Normal Bowel Sounds. absent: Distended - Back Exam Back Exam: NORMAL INSPECTION - Neurological Exam Neurological Exam: Alert, Awake, CN II-XII Intact, Oriented x3 - Psychiatric Exam Psychiatric exam: Normal Affect, Normal Mood - Skin Skin Exam: Dry, Intact, Normal Color, Warm Assessment and Plan - Assessment and Plan (Free Text) Assessment: Cholelithiasis 08/09: s/p robotic assisted laparoscopic cholecystectomy (surgery 08/09). -08/07- Bilirubin down to 1.7 from 6.6 on admission -GI consult placed- Dr. Matias- 08/06: Rec Surgical consult for questionable CBD filling defect and prior US showing cholelithiasis. 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 Filling defect in distal CBD (air vs stone). 08/02: ERCP- stopped early due to hypoxia. Major papilla was not found, major papilla appeared congested/erythematous/stenotic Rec full liquid diet; continue current meds; repeat ERCP for retreatment 07/31: MRCP- acute pancreatitis, possibility of necrosis. Inflammatory changes in upper abdomen consistent with acute pancreatitis. f/u MRCP study after 1-2 weeks suggested to eval for pseudocyst formation. contracted gallbladder with multiple stones. RUQ US w/heterogeneous echo texture of hepatic parenchyma, poss D/T hepatic steatosis vs. parenchymal disease. Cholelithiasis. No definite evidence of cholecystitis. Nuclear medicine HIDA scan or MRI can be obtained if indicated. -Lipid panel - Triglycerides 161, Cholesterol 157, LDL 72, HDL 26L Leukocytosis WBC downtrending, Afebrile 08/07: WBC 19.4, Tmax 100.0 on 08/05. afebrile otherwise 08/06: WBC 22.5, uptrending. Start Cipro 400mg IVPB Q12H (Q12 per pharmacy). Continue Flagyl. 08/05: WBC 20.9- continue Flagyl. UA Negative 08/04: WBC 19.4, 12 Bands. 08/03: WBC 17.5 , downtrending; 08/02: WBC 17.8 , downtrending; BC neg x1day; UC neg. Likely secondary to acute pancreatitis. WBC 22.1 trending down, Afebrile. Flagyl 500mg IV q8H started per Dr. Matias (since 07/31) BC neg x5day UC 07/30 neg CXR in obs series neg Lactic Acid 3.3 on admission. Acute pancreatitis, acute - resolved 08/08: Tolerating liquid diet. Mild periumbilical pain. 08/07: Tolerating Liquid diet. Mild RUQ pain. 08/06: Lipase/amylase normalized. [id number]. Minimal abdominal pain today. Mildly ( +) Candelario's Hold Dilaudid. 08/05: Lipase 67 / Amylase 34. mid-epigastric pain decreased to 1/10. Liquid diet 08/04: mid-epigastric pain decreased to 3/10. f/u lipase/amylase. 08/03: lipase 107 / amylase 72 - resolved; Mid-epigastric abdominal pain persists 08/02: Lipase - 379, downtrending Clements's criteria at 24 hours: Positive for glucose >200 (232), LDH > 350 (3800) , AST >250 (603), WBC >32249 (43277). Lipase on admission 22582, now 115 Amylase on admission 1935, now 38 Abd/pelv CT showed acute/severe pancreatitis without focal abnormalities to suggest necrotizing pancreatitis. Zofran Q4H PRN for nausea CMP Q8H and replace as needed Liver enzymes trending down Hyperglycemia, acute Hgb A1c 5.6 Blood sugar range: 100-300 Random glucose on admission 232. Serum Ketones: neg Monitor Constipation, acute - resolving 08/05-08/07: cont Senokot S 1tab PO BID PRN, constipation. 08/04: Miralax once. Senokot S 1tab PO BID PRN, constipation. 08/02: persists - fleet enema. Abdomen Obs series is unremarkable. No evidence of mechanical bowel obstruction. Dulcolax suppository X 1 Having BM, but hard stool Diarrhea, acute - resolved 08/05: Continue Neutraphos BID (STOP 08/08 am) -08/04: 1 eipisode, decreasing. Neutraphos dec to BID. -08/03: 4 episodes of diarrhea likely due to neutraphos TID. Electrolyte Imbalance -Hypokalemia, 08/02: K2.9 KCl 20meq IVPB x2 -> 08/03: K3.1 KPhos 15mmol in NS 250mL -> K3.1 KCl 10meq x2 bag, KPhos 15mmol in NS 250mL -> 08/04: K3.3 KCl IV 20meq + KCl PO 20 -- Monitor and replete. -Hypophosphatemia, 08/02: P1.0 KPhos 15mmol in NS 250mL + Neutraphos PO 1 packet -> 08/03: P 1.1 -> Neutraphos PO TID + KPhos 15mmol in NS 250mL -> 08/04: 1.9 -> Neutraphos PO BID (reduced due to diarrhea). -- Monitor -> Neutraphos set to stop 08/08 in am Metabolic acidosis, increased anion gap (IAG), acute- resolved Measured anion gap: 21 on admission Lactic Acid 3.3 as per VBG. Serum Ketones: negative Management as above. Urinary Frequency Per Dr. Chung, patient complained of urinary frequency. -Flomax 0.4mg PO Daily -Renal/Urinary bladder U/S - negative Prophylactic measure Protonix 40 mg IVP daily SCDs Avoid chemical anticoagulation and NSAID to prevent hemorrhagic pancreatic necrosis.
[2016-08-09 08:39] LABS: INR 2.1
[2016-08-09] MEDS ORDERED: Morphine 4 MG/ML VIAL ONE ×2 (08:54→10:30)
[2016-08-09] MEDS ORDERED: Rocuronium 10 mg/ml (5 ml) ONE (09:09)
[2016-08-09] MEDS ORDERED: Neostigmine Methylsulfate 3mg/3ml Syringe IV ONE (09:52)
[2016-08-09] MEDS: (Lantus) Insulin Glargine, Recombinant SC SCH (10:47)
[2016-08-09] MEDS ORDERED: HYDROmorphone 0.5 mg/0.5 ml ISec IVP PRN ×2 (10:52→13:01)
--- NOTE | 2016-08-09 10:53 | PCM.SURG1 ---
Surgeon's Initial Post Op Note - Surgeon's Notes Surgeon: Dr. Chung Acid Blower: Lu Lawrence Type of Anesthesia: General Endo, Local Pre-Operative Diagnosis: gallstone pancreatitis Operative Findings: cholecystitis Post-Operative Diagnosis: chronic cholecystitis Operation Performed: robotic assisted laparoscopic cholecystectomy Specimen/Specimens Removed: gallbladder Estimated Blood Loss: EBL {In ML}: 50 Blood Products Given: N/A Drains Used: No Drains Post-Op Condition: Good Date of Surgery/Procedure: 08/09/16 Time of Surgery/Procedure: 10:53
[2016-08-09 10:55] LABS: NEUTROPHIL 88 % (50-75); TOTAL CELLS COUNTED 100
--- NOTE | 2016-08-09 11:27 | PN ---
DATE: 08/09/2016 LOCATION: 361, bed B. This is a 46-year-old male, seen and examined in rounds early today without significant clinical hendrickson ges, prepared for the OR for cholecystectomy today. The entire chart is reviewed, including but not limited to, the most recent lab and radiology study r esults, current and previous medication list, current and previous medical events. Case discussed at length with the staff. Today's labs showed leukocytosis of 16.7, but normal hemoglobin and hematocrit with normal platelet c ount, but elevated PT to 23.5 with increased INR to 2.1 of unclear etiology with sodium low 128 and l ow CO2 content of 21 indicative of metabolic acidosis with low BUN and creatinine and elevated blood glucose level 203, low calcium 7.5, low albumin 2.6, low total protein 6.0. Case discussed at length with the surgical staff. PHYSICAL EXAMINATION: GENERAL: A 46-year-old male. VITAL SIGNS: Afebrile with pulse of 92, respiratory rate 20-22, blood pressure 130/76. HEENT: Showed pale, dry oral mucoid membrane. Nonicteric sclerae. LUNGS: Few scattered crepitation. Decreased air entry at bases. HEART: Positive S1 and S2 with increased rate. ABDOMEN: Soft. Bowel sounds are present with mild generalized tenderness. No mass or organomegaly. No rebound tenderness or guarding. EXTREMITIES: With mild edematous changes. No reported neurological deficits, sensory or motor. IMPRESSION: 1. Acute pancreatitis, secondary to possible biliary pancreatitis. 2. Cholelithiasis with possible cholecystitis. 3. Jaundice by recent history, status post biliary stent insertion. 4. Known history of hyperglycemia. 5. Peptic ulcer disease by recent history. SUGGESTION: 1. Continue current management. 2. Antireflux measures. 3. We will follow up post surgery and IV antibiotic to be kept in mind. Dk Matias MD cc: [id number] TT: 08/09/2016 11:27:27 Confirmation # [id number] Dictation # [id number]
--- NOTE | 2016-08-09 12:21 | OP ---
PROCEDURE DATE: 08/09/2016 PREOPERATIVE DIAGNOSES: 1. Gallstone pancreatitis. 2. Cholelithiasis and chronic cholecystitis. 3. Status post endoscopic retrograde cholangiopancreatogram and placement of stent. POSTOPERATIVE DIAGNOSES: 1. Gallstone pancreatitis. 2. Cholelithiasis and chronic cholecystitis. 3. Status post endoscopic retrograde cholangiopancreatogram and placement of stent. 4. Extensive postinfectious adhesion due to the chronic cholecystitis and gallstone pancreatitis. OPERATION DONE: 1. Robotic extensive lysis of adhesions. 2. Robotic cholecystectomy. SURGEON: Dr. Chung TRAP PULLER: MILLIE Ortega. Lu was present from the beginning to the end of the procedure, helped in the prepping and draping, docking and undocking of the robot and the closure of the wound. SECOND TRAP PULLER: Rebeca Silva, PGY-1 resident ANESTHESIA: General endotracheal tube anesthesia. ESTIMATED BLOOD LOSS: Around 50 mL. DRAINS: None. PATHOLOGY: Gallbladder with gallstone was sent for the pathology. COMPLICATIONS: None. INTRAOPERATIVE FINDINGS: The patient had phlegmon of the omentum, gallbladder and the colon due to gallstone pancreatitis and extensive inflammation and the patient also had changes of chronic cholecystitis and cholelithiasis. INTRAOPERATIVE STEPS: This 46-year-old male was diagnosed with gallstone pancreatitis and chronic cholecystitis and cholelithiasis. The patient was status post ERCP and stent placement and patient was consented for the laparoscopic-assisted robotic cholecystectomy, possible open. Brought to the OR , placed supine on the operating table. After induction of the anesthesia, abdomen was prepped and draped in a usual sterile fashion. The supraumbilical transverse 1.5 cm incision was made. After incising skin and subcutaneous tissue, the fascia was incised in the line of incision. The robotic camera port was placed and pneumo was created. Another two 8 mm ports were placed in left upper quadrant and right upper quadrant and another two 5 mm ports were placed in midclavicular line on the right side as well as on the left side for the anesthesiologists' assistant port. First robot was brought in. Camera arm and arm 1, arm 2 was docked and through the anesthesiologists' assistant port, the hook and retractor was placed and first the gallbladder was identified and the dissection of the phlegmon was done to identify the fundus as well as the infundibulum of the gallbladder. After proper lysis of adhesion, the intraoperative Firefly was used to identify the common bile duct and cystic duct. Now, the top-down approach was done and the gallbladder was dissected free from the gallbladder fossa and cystic duct and cystic artery was identified. The cystic artery was clipped at 3 places and the cystic duct, common bile duct junction was identified again on the Firefly and the cystic duct was very large and it was stapled with the RY and the gallbladder was taken in the EndoCatch bag, taken out through the umbilical port site and sent off the table for the pathology. The rest of the procedure was done laparoscopically and suction irrigation of the gallbladder fossa and perihepatic area was done and all the fluid was suctioned out and the spilled stone was also taken out and after proper hemostasis, all the ports were taken out under vision. Pneumo was deflated. The umbilical port site and the robotic stapler port site was closed in 2 layers, the fascia with 0 Vicryl interrupted sutures, skin with a 4-0 Monocryl. Dry sterile dressing was applied. The patient tolerated procedure well. Count of instruments and gauze was correct. There was no apparent complication. The patient was sent to the postanesthesia care unit in stable condition. Papa Chung MD cc: [id number] TT: 08/09/2016 12:21:40 sn MTDD
--- NOTE | 2016-08-09 12:42 | CP.PCM.PN ---
Subjective - Date & Time of Evaluation Date of Evaluation: 08/09/16 Time of Evaluation: 12:40 - Subjective Subjective: POST OP. AFEBRILE. NO CP. Objective - Vital Signs/Intake and Output Vital Signs (last 24 hours): Temp Pulse Resp BP Pulse Ox 99 F 100 H 18 147/75 95 08/09/16 10:50 08/09/16 11:00 08/09/16 11:00 08/09/16 11:00 08/09/16 11:00 Intake and Output: 08/09/16 08/09/16 06:59 18:59 Output Total 100 Balance -100 - Medications Medications: Current Medications Albuterol/Ipratropium (Duoneb 3 Mg/0.5 Mg (3 Ml) Ud) 3 ml INH RQ6 PRN PRN Reason: Shortness of Breath Last Admin: 08/04/16 20:51 Dose: 3 ml Hydromorphone HCl (Dilaudid) 0.5 mg IVP Q4H PRN PRN Reason: Pain, moderate (4-7) Hydromorphone HCl (Dilaudid) 0.5 mg IVP Q5M PRN PRN Reason: Pain, Mild (1-3) Stop: 08/09/16 12:52 Metronidazole (Flagyl) 100 mls @ 100 mls/hr IVPB Q8 [facility] Last Admin: 08/09/16 05:00 Dose: 100 mls/hr Sodium Chloride (Sodium Chloride 0.9%) 1,000 mls @ 80 mls/hr IV .[id number] [facility] Last Admin: 08/09/16 09:27 Dose: Not Given Ciprofloxacin (Cipro 400mg/200ml Dsw) 200 mls @ 133 mls/hr IVPB Q12H [facility] Last Admin: 08/09/16 06:05 Dose: 133 mls/hr Insulin Glargine (Lantus) 10 unit SC DAILY [facility] Last Admin: 08/09/16 10:47 Dose: Not Given Metoclopramide HCl (Reglan) 5 mg IVP ACHS [facility] Last Admin: 08/09/16 07:53 Dose: Not Given Ondansetron HCl (Zofran Inj) 4 mg IVP Q6 PRN PRN Reason: Nausea/Vomiting Ondansetron HCl (Zofran Inj) 4 mg IVP ONCE PRN PRN Reason: Nausea/Vomiting Stop: 08/09/16 12:52 Last Admin: 08/09/16 11:30 Dose: 4 mg Pantoprazole Sodium (Protonix Inj) 40 mg IVP DAILY [facility] Last Admin: 08/09/16 10:47 Dose: Not Given Senna/Docusate Sodium (Senokot S 50 Mg-8.6 Mg) 1 tab PO BID PRN PRN Reason: Constipation Last Admin: 08/04/16 14:40 Dose: 1 tab Tamsulosin HCl (Flomax) 0.4 mg PO DAILY [facility] Last Admin: 08/09/16 10:47 Dose: Not Given - Labs Labs: 08/09/16 07:38 08/09/16 07:38 PT 23.5 SECONDS (9.7-12.2) H 08/09/16 07:38 INR 2.1 08/09/16 07:38 APTT 30 SECONDS (21-34) 08/09/16 07:38 - Constitutional Appears: No Acute Distress - Eye Exam Eye Exam: Normal appearance, PERRL - ENT Exam ENT Exam: Normal Exam - Respiratory Exam Respiratory Exam: Clear to Ausculation Bilateral, NORMAL BREATHING PATTERN - Cardiovascular Exam Cardiovascular Exam: REGULAR RHYTHM, +S1, +S2 - GI/Abdominal Exam GI & Abdominal Exam: Soft, Tenderness - Extremities Exam Extremities Exam: Full ROM, Normal Capillary Refill, Normal Inspection. absent : Joint Swelling, Pedal Edema - Back Exam Back Exam: NORMAL INSPECTION - Neurological Exam Neurological Exam: Alert, Awake, CN II-XII Intact, Normal Gait, Oriented x3 - Psychiatric Exam Psychiatric exam: Normal Affect, Normal Mood Assessment and Plan - Assessment and Plan (Free Text) Assessment: POST OP. Plan: CT PRESENT TREATMENT.
[2016-08-09 13:40] VITALS: RESP 20
[2016-08-09] MEDS: Oxycodone/Acetaminophen 5/325 mg Tab PO PRN (14:15)
[2016-08-10] MEDS: Oxycodone/Acetaminophen 5/325 mg Tab PO PRN ×4 (04:03→21:36)
[2016-08-10] MEDS: Sodium Chloride 0.9% 1,000 ML IV SCH ×3 (04:05→21:36)
[2016-08-10] MEDS: metroNIDAZOLE IV 500 mg/100 ml 100 ML IVPB SCH ×3 (05:12→21:32)
[2016-08-10] MEDS: Ciprofloxacin 400mg/200ml D5W 200 ML IVPB SCH ×2 (06:33→17:08)
--- NOTE | 2016-08-10 07:53 | CP.PCM.PN ---
Subjective - Date & Time of Evaluation Date of Evaluation: 08/10/16 Time of Evaluation: 07:20 - Subjective Subjective: PGY-[address] Jackson Pt seen and examined at bedside. No overnight events per nursingl. Pt is s/p robotic assisted laparoscopic cholecystectomy (surgery 08/09). Pain is well managed. Tolerating PO fluids and small regular diet. +Urination. Denies f/c, chest pain, palpitations, SOB, n/v, d/c, urinary symptoms, LE edema, or any additional complaints. Objective - Vital Signs/Intake and Output Vital Signs (last 24 hours): Temp Pulse Resp BP Pulse Ox 97.9 F 85 20 140/76 96 08/09/16 23:34 08/09/16 23:34 08/09/16 23:34 08/09/16 23:34 08/09/16 23:34 - Medications Medications: Current Medications Albuterol/Ipratropium (Duoneb 3 Mg/0.5 Mg (3 Ml) Ud) 3 ml INH RQ6 PRN PRN Reason: Shortness of Breath Last Admin: 08/04/16 20:51 Dose: 3 ml Hydromorphone HCl (Dilaudid) 0.5 mg IVP Q4H PRN PRN Reason: Pain, severe (8-10) Last Admin: 08/10/16 00:39 Dose: 0.5 mg Metronidazole (Flagyl) 100 mls @ 100 mls/hr IVPB Q8 [facility] Last Admin: 08/10/16 05:12 Dose: 100 mls/hr Sodium Chloride (Sodium Chloride 0.9%) 1,000 mls @ 80 mls/hr IV .[id number] [facility] Last Admin: 08/10/16 04:05 Dose: 80 mls/hr Ciprofloxacin (Cipro 400mg/200ml Dsw) 200 mls @ 133 mls/hr IVPB Q12H [facility] Last Admin: 08/10/16 06:33 Dose: 133 mls/hr Insulin Glargine (Lantus) 10 unit SC DAILY [facility] Last Admin: 08/09/16 10:47 Dose: Not Given Metoclopramide HCl (Reglan) 5 mg IVP ACHS [facility] Last Admin: 08/10/16 07:36 Dose: 5 mg Ondansetron HCl (Zofran Inj) 4 mg IVP Q6 PRN PRN Reason: Nausea/Vomiting Oxycodone/Acetaminophen (Percocet 5/325 Mg Tab) 1 tab PO Q4H PRN PRN Reason: Pain, moderate (4-7) Stop: 08/12/16 13:03 Last Admin: 08/10/16 04:03 Dose: 1 tab Oxycodone/Acetaminophen (Percocet 5/325 Mg Tab) 2 tab PO Q4H PRN PRN Reason: Pain, severe (8-10) Stop: 08/12/16 13:03 Pantoprazole Sodium (Protonix Inj) 40 mg IVP DAILY [facility] Last Admin: 08/09/16 14:16 Dose: 40 mg Senna/Docusate Sodium (Senokot S 50 Mg-8.6 Mg) 1 tab PO BID PRN PRN Reason: Constipation Last Admin: 08/04/16 14:40 Dose: 1 tab Tamsulosin HCl (Flomax) 0.4 mg PO DAILY [facility] Last Admin: 08/09/16 14:15 Dose: 0.4 mg - Labs Labs: 08/09/16 07:38 08/09/16 07:38 PT 23.5 SECONDS (9.7-12.2) H 08/09/16 07:38 INR 2.1 08/09/16 07:38 APTT 30 SECONDS (21-34) 08/09/16 07:38 - Additional Findings Additional findings: - Constitutional Appears: Non-toxic, No Acute Distress - Head Exam Head Exam: ATRAUMATIC, NORMAL INSPECTION, NORMOCEPHALIC - Eye Exam Eye Exam: EOMI, Normal appearance, PERRL Pupil Exam: NORMAL ACCOMODATION, PERRL - ENT Exam ENT Exam: Mucous Membranes Moist, Normal Exam - Neck Exam Neck Exam: Full ROM, Normal Inspection - Respiratory Exam Respiratory Exam: Clear to Ausculation Bilateral, NORMAL BREATHING PATTERN. absent: Rales, Rhonchi, Wheezes - Cardiovascular Exam Cardiovascular Exam: REGULAR RHYTHM, +S1, +S2 - GI/Abdominal Exam GI & Abdominal Exam: Soft, Tenderness (david-incisional), Normal Bowel Sounds. Distended (mild) - dressings clean, dry, intact - Back Exam Back Exam: NORMAL INSPECTION - Neurological Exam Neurological Exam: Alert, Awake, CN II-XII Intact, Oriented x3 - Psychiatric Exam Psychiatric exam: Normal Affect, Normal Mood - Skin Skin Exam: Dry, Intact, Normal Color, Warm Assessment and Plan - Assessment and Plan (Free Text) Assessment: Cholelithiasis f/u amylase / lipase 08/10: Patient doing well, recovering with no acute complaints. s/p robotic assisted laparoscopic cholecystectomy (surgery 08/09). -08/07- Bilirubin down to 1.7 from 6.6 on admission -GI consult placed- Dr. Matias- 08/06: Rec Surgical consult for questionable CBD filling defect and prior US showing cholelithiasis. 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 Filling defect in distal CBD (air vs stone). 08/02: ERCP- stopped early due to hypoxia. Major papilla was not found, major papilla appeared congested/erythematous/stenotic Rec full liquid diet; continue current meds; repeat ERCP for retreatment 07/31: MRCP- acute pancreatitis, possibility of necrosis. Inflammatory changes in upper abdomen consistent with acute pancreatitis. f/u MRCP study after 1-2 weeks suggested to eval for pseudocyst formation. contracted gallbladder with multiple stones. RUQ US w/heterogeneous echo texture of hepatic parenchyma, poss D/T hepatic steatosis vs. parenchymal disease. Cholelithiasis. No definite evidence of cholecystitis. Nuclear medicine HIDA scan or MRI can be obtained if indicated. -Lipid panel - Triglycerides 161, Cholesterol 157, LDL 72, HDL 26L Leukocytosis 08/10: WBC downtrending, Afebrile 08/07: WBC 19.4, Tmax 100.0 on 08/05. afebrile otherwise 08/06: WBC 22.5, uptrending. Start Cipro 400mg IVPB Q12H (Q12 per pharmacy). Continue Flagyl. 08/05: WBC 20.9- continue Flagyl. UA Negative 08/04: WBC 19.4, 12 Bands. 08/03: WBC 17.5 , downtrending; 08/02: WBC 17.8 , downtrending; BC neg x1day; UC neg. Likely secondary to acute pancreatitis. WBC 22.1 trending down, Afebrile. -Flagyl 500mg IV q8H started per Dr. Matias (since 07/31) -Cipro 400mg IVPB Q12H (since 08/06) BC neg x5day UC 07/30 neg CXR in obs series neg Lactic Acid 3.3 on admission. Acute pancreatitis, acute - resolved f/u lipase/amylase in am. 08/08: Tolerating liquid diet. Mild periumbilical pain. 08/07: Tolerating Liquid diet. Mild RUQ pain. 08/06: Lipase/amylase normalized. [id number]. Minimal abdominal pain today. Mildly ( +) Candelario's Hold Dilaudid. 08/05: Lipase 67 / Amylase 34. mid-epigastric pain decreased to 06/01. Liquid diet 08/04: mid-epigastric pain decreased to 07/30. f/u lipase/amylase. 08/03: lipase 107 / amylase 72 - resolved; Mid-epigastric abdominal pain persists 08/02: Lipase - 379, downtrending Transfer's criteria at 24 hours: Positive for glucose >200 (232), LDH > 350 (3800) , AST >250 (603), WBC >96200 (72364). Lipase on admission 11541, now 115 Amylase on admission 1935, now 38 Abd/pelv CT showed acute/severe pancreatitis without focal abnormalities to suggest necrotizing pancreatitis. Zofran Q4H PRN for nausea CMP Q8H and replace as needed Liver enzymes trending down Hyperglycemia, acute 08/10: glucose elevated 220-260 Hgb A1c 5.6 Blood sugar range: 100-300 Random glucose on admission 232. Serum Ketones: neg Monitor Constipation, acute - resolved 08/05-08/07: cont Senokot S 1tab PO BID PRN, constipation. 08/04: Miralax once. Senokot S 1tab PO BID PRN, constipation. 08/02: persists - fleet enema. Abdomen Obs series is unremarkable. No evidence of mechanical bowel obstruction. Dulcolax suppository X 1 Having BM, but hard stool Diarrhea, acute - resolved 08/05: Continue Neutraphos BID (STOP 08/08 am) -08/04: 1 eipisode, decreasing. Neutraphos dec to BID. -08/03: 4 episodes of diarrhea likely due to neutraphos TID. Electrolyte Imbalance -Hypokalemia, 08/02: K2.9 KCl 20meq IVPB x2 -> 08/03: K3.1 KPhos 15mmol in NS 250mL -> K3.1 KCl 10meq x2 bag, KPhos 15mmol in NS 250mL -> 08/04: K3.3 KCl IV 20meq + KCl PO 20 -- Monitor and replete. RESOLVED -Hypophosphatemia, 08/02: P1.0 KPhos 15mmol in NS 250mL + Neutraphos PO 1 packet -> 08/03: P 1.1 -> Neutraphos PO TID + KPhos 15mmol in NS 250mL -> 08/04: 1.9 -> Neutraphos PO BID (reduced due to diarrhea). -- Monitor -> Neutraphos set to stop 08/08 in am -- RESOLVED Metabolic acidosis, increased anion gap (IAG), acute- resolved Measured anion gap: 21 on admission Lactic Acid 3.3 as per VBG. Serum Ketones: negative Management as above. Urinary Frequency Per Dr. Chung, patient complained of urinary frequency. -Flomax 0.4mg PO Daily -Renal/Urinary bladder U/S - negative Prophylactic measure Protonix 40 mg IVP daily SCDs Avoid chemical anticoagulation and NSAID to prevent hemorrhagic pancreatic necrosis. 08/10: Bactroban to right hand, IV infiltration
[2016-08-10 08:13] LABS: BASO % 0.2 % (0.0-2.0); EOS % 0.1 % (0.0-4.0); HEMATOCRIT 36.3 % (35.0-51.0); LYMPH # 1.7 K/uL (1.0-4.3); LYMPH % 10.3 % (20.0-40.0); MEAN CELL VOLUME 93.1 fL (80.0-94.0); MEAN CORPUSCULAR HEMOGLOBIN 30.6 pg (27.0-31.0); MEAN CORPUSCULAR HGB CONC 32.9 g/dL (33.0-37.0); MEAN PLATELET VOLUME 8.1 fL (7.2-11.7); MONO # 0.8 K/uL (0.0-0.8); MONO % 5.1 % (0.0-10.0); RED CELL DISTRIBUTION WIDTH 14.6 % (11.5-14.5); WHITE BLOOD COUNT 16.1 K/uL (4.8-10.8)
[2016-08-10 08:28] LABS: CHLORIDE 92 mmol/L (98-107); SODIUM 128 mmol/L (132-148)
[2016-08-10 08:29] LABS: BILIRUBIN,TOTAL 1.2 mg/dL (0.2-1.3); CARBON DIOXIDE 25 mmol/L (22-30); GFR AFRICAN-AMERICAN > 60
[2016-08-10 08:30] LABS: ALB/GLOB RATIO 0.8 (1.0-2.1); ALKALINE PHOSPHATASE 95 U/L (38-126); ALT/SGPT 39 U/L (21-72); AST/SGOT 47 U/L (17-59); BLOOD UREA NITROGEN 9 mg/dL (9-20); CALCIUM 7.3 mg/dl (8.6-10.4); GLUCOSE,RANDOM 222 mg/dL (75-110); TOTAL PROTEIN 5.8 g/dL (6.3-8.3)
--- NOTE | 2016-08-10 09:30 | CP.PCM.PN ---
<Patrcia SilvaMarlineManjit - Last Filed: 08/10/16 09:42> Subjective - Date & Time of Evaluation Date of Evaluation: 08/10/16 Time of Evaluation: 07:30 - Subjective Subjective: Progress Note Pt complains of mild abdominal pain at site of incisions, appropriate. States his pain is well controlled. Denies fever, chills, nausea, vomiting. Denies BMs or flatus. He has been tolerating PO fluids and small reg diet. States he has been urinating without difficulty or pain. Objective - Vital Signs/Intake and Output Vital Signs (last 24 hours): Temp Pulse Resp BP Pulse Ox 98.4 F 108 H 20 143/84 95 08/10/16 08:00 08/10/16 08:00 08/10/16 08:00 08/10/16 08:00 08/10/16 08:00 Intake and Output: 08/10/16 08/10/16 06:59 18:59 Intake Total 880 Output Total 850 Balance 30 - Medications Medications: Current Medications Albuterol/Ipratropium (Duoneb 3 Mg/0.5 Mg (3 Ml) Ud) 3 ml INH RQ6 PRN PRN Reason: Shortness of Breath Last Admin: 08/04/16 20:51 Dose: 3 ml Hydromorphone HCl (Dilaudid) 0.5 mg IVP Q4H PRN PRN Reason: Pain, severe (8-10) Last Admin: 08/10/16 00:39 Dose: 0.5 mg Metronidazole (Flagyl) 100 mls @ 100 mls/hr IVPB Q8 [facility] Last Admin: 08/10/16 05:12 Dose: 100 mls/hr Sodium Chloride (Sodium Chloride 0.9%) 1,000 mls @ 80 mls/hr IV .[id number] [facility] Last Admin: 08/10/16 04:05 Dose: 80 mls/hr Ciprofloxacin (Cipro 400mg/200ml Dsw) 200 mls @ 133 mls/hr IVPB Q12H [facility] Last Admin: 08/10/16 06:33 Dose: 133 mls/hr Insulin Glargine (Lantus) 10 unit SC DAILY [facility] Last Admin: 08/09/16 10:47 Dose: Not Given Metoclopramide HCl (Reglan) 5 mg IVP ACHS [facility] Last Admin: 08/10/16 07:36 Dose: 5 mg Ondansetron HCl (Zofran Inj) 4 mg IVP Q6 PRN PRN Reason: Nausea/Vomiting Oxycodone/Acetaminophen (Percocet 5/325 Mg Tab) 1 tab PO Q4H PRN PRN Reason: Pain, moderate (4-7) Stop: 08/12/16 13:03 Last Admin: 08/10/16 04:03 Dose: 1 tab Oxycodone/Acetaminophen (Percocet 5/325 Mg Tab) 2 tab PO Q4H PRN PRN Reason: Pain, severe (8-10) Stop: 08/12/16 13:03 Pantoprazole Sodium (Protonix Inj) 40 mg IVP DAILY [facility] Last Admin: 08/09/16 14:16 Dose: 40 mg Senna/Docusate Sodium (Senokot S 50 Mg-8.6 Mg) 1 tab PO BID PRN PRN Reason: Constipation Last Admin: 08/04/16 14:40 Dose: 1 tab Tamsulosin HCl (Flomax) 0.4 mg PO DAILY [facility] Last Admin: 08/09/16 14:15 Dose: 0.4 mg - Labs Labs: 08/10/16 07:58 08/10/16 07:58 PT 23.5 SECONDS (9.7-12.2) H 08/09/16 07:38 INR 2.1 08/09/16 07:38 APTT 30 SECONDS (21-34) 08/09/16 07:38 - Constitutional Appears: Well, Non-toxic, No Acute Distress - Head Exam Head Exam: ATRAUMATIC, NORMOCEPHALIC - Eye Exam Eye Exam: EOMI. absent: Scleral icterus - ENT Exam ENT Exam: Mucous Membranes Moist - Respiratory Exam Respiratory Exam: NORMAL BREATHING PATTERN. absent: Respiratory Distress - Cardiovascular Exam Cardiovascular Exam: REGULAR RHYTHM - GI/Abdominal Exam GI & Abdominal Exam: Distended, Tenderness Additional comments: tender to incision sites with mild distention Dressing clean, dry, intact - Neurological Exam Neurological Exam: Alert, Awake - Psychiatric Exam Psychiatric exam: Normal Affect, Normal Mood Assessment and Plan - Assessment and Plan (Free Text) Assessment: 46M POD1 s/p robotic cholecystectomy Plan: Continue pain management Advance diet as tolerated Encourage ambulation Incentive spirometer Q 1hr Further medical management per primary team no further surgical intervention at this time f/u w/ Dr. Chung in 2 weeks upon discharge [facility] PGY-1 <Papa Chung - Last Filed: 08/11/16 18:07> Objective - Vital Signs/Intake and Output Vital Signs (last 24 hours): Temp Pulse Resp BP Pulse Ox 97.9 F 102 H 20 132/84 95 08/11/16 16:50 08/11/16 16:50 08/11/16 16:50 08/11/16 16:50 08/11/16 16:50 Intake and Output: 08/11/16 08/11/16 06:59 18:59 Intake Total 1140 400 Balance 1140 400 - Medications Medications: Current Medications Albuterol/Ipratropium (Duoneb 3 Mg/0.5 Mg (3 Ml) Ud) 3 ml INH RQ6 PRN PRN Reason: Shortness of Breath Last Admin: 08/04/16 20:51 Dose: 3 ml Metronidazole (Flagyl) 100 mls @ 100 mls/hr IVPB Q8 [facility] Last Admin: 08/11/16 13:29 Dose: 100 mls/hr Sodium Chloride (Sodium Chloride 0.9%) 1,000 mls @ 80 mls/hr IV .[id number] [facility] Last Admin: 08/11/16 13:38 Dose: 80 mls/hr Ciprofloxacin (Cipro 400mg/200ml Dsw) 200 mls @ 133 mls/hr IVPB Q12H [facility] Last Admin: 08/11/16 06:19 Dose: 133 mls/hr Insulin Glargine (Lantus) 10 unit SC DAILY [facility] Last Admin: 08/11/16 10:12 Dose: 10 u Metoclopramide HCl (Reglan) 5 mg IVP ACHS [facility] Last Admin: 08/11/16 16:13 Dose: 5 mg Mupirocin (Bactroban Ointment) 0 gm TOP BID [facility] Last Admin: 08/11/16 10:29 Dose: 1 applic Ondansetron HCl (Zofran Inj) 4 mg IVP Q6 PRN PRN Reason: Nausea/Vomiting Oxycodone/Acetaminophen (Percocet 5/325 Mg Tab) 1 tab PO Q4H PRN PRN Reason: Pain, moderate (4-7) Stop: 08/12/16 13:03 Last Admin: 08/10/16 04:03 Dose: 1 tab Oxycodone/Acetaminophen (Percocet 5/325 Mg Tab) 2 tab PO Q4H PRN PRN Reason: Pain, severe (8-10) Stop: 08/12/16 13:03 Last Admin: 08/11/16 12:49 Dose: 2 tab Pantoprazole Sodium (Protonix Inj) 40 mg IVP DAILY [facility] Last Admin: 08/11/16 10:30 Dose: 40 mg Senna/Docusate Sodium (Senokot S 50 Mg-8.6 Mg) 1 tab PO BID PRN PRN Reason: Constipation Last Admin: 08/04/16 14:40 Dose: 1 tab Tamsulosin HCl (Flomax) 0.4 mg PO DAILY [facility] Last Admin: 08/11/16 10:12 Dose: 0.4 mg - Labs Labs: 08/11/16 06:30 08/11/16 06:30 PT 23.5 SECONDS (9.7-12.2) H 08/09/16 07:38 INR 2.1 08/09/16 07:38 APTT 30 SECONDS (21-34) 08/09/16 07:38 Attending/Attestation - Attestation I have personally seen and examined this patient.: Yes I have fully participated in the care of the patient.: Yes I have reviewed all pertinent clinical information, including history, physical exam and plan: Yes Notes (Text): 08/11/16 18:06 Pt was seen and examined at bedside on 08/10/16 Agree with above note and assessment.
[2016-08-10] MEDS: (Lantus) Insulin Glargine, Recombinant SC SCH (10:25)
--- NOTE | 2016-08-10 11:23 | PN ---
DATE: 08/10/2016 LOCATION: 361, bed B. This is a 46-year-old male seen and examined in rounds without significant clinical changes with inte rmittent periods of abdominal pain at the site of the recently done cholecystectomy. No nausea or vomiting. Tolerating liquid intake p.o. Entire chart is reviewed, including but not li mited to the most recent lab and radiology study results, current and previous medication list, curre nt and the previous medical events. The patient still has leukocytosis of 16.1, but normal hemoglobi n and hematocrit, with thrombocytes of 410, but low sodium of 128 and increased blood glucose level 2 22, with low calcium 7.3, albumin low at 2.5 and low total protein 5.8. PHYSICAL EXAMINATION: GENERAL: A 46-year-old male. VITAL SIGNS: Afebrile with heart rate of 102, respiratory rate 20-22 with blood pressure of 120/80. HEENT: Showed pale, dry oral mucoid membrane. Nonicteric sclerae. LUNGS: Few scattered crepitation, decreased air entry at bases. HEART: Positive S1 and S2 with increased rate. ABDOMEN: Soft with mild distention with generalized tenderness and clean dressing. Bowel sounds are hypoactive. EXTREMITIES: Without significant edema, clubbing or cyanosis. NEUROLOGIC: No reported new neurologic deficits, sensory or motor. IMPRESSION: 1. Acute pancreatitis, improving clinically on antibiotic and biochemically. 2. Choledocholithiasis with status post cholecystectomy. 3. Recent history of jaundice with elevated total bilirubin, status post endoscopic retrograde chola ngiopancreatography and biliary stent insertion. 4. Known history of diabetes mellitus. 5. Peptic ulcer disease by recent history. SUGGESTION: 1. Continue current management. 2. Add gentamicin IV due to the patient's persistent leukocytosis. 3. Further recommendation to follow. Dk Matias MD cc: 14 TT: 08/10/2016 11:22:48 Confirmation # [id number] Dictation # [id number] renata
--- NOTE | 2016-08-10 13:01 | CP.PCM.PN ---
Subjective - Date & Time of Evaluation Date of Evaluation: 08/10/16 Time of Evaluation: 12:59 - Subjective Subjective: POST OP. AFEBRILE. VS WNL. Objective - Vital Signs/Intake and Output Vital Signs (last 24 hours): Temp Pulse Resp BP Pulse Ox 98.4 F 108 H 20 143/84 95 08/10/16 08:00 08/10/16 08:00 08/10/16 08:00 08/10/16 08:00 08/10/16 08:00 Intake and Output: 08/10/16 08/10/16 06:59 18:59 Intake Total 880 Output Total 850 Balance 30 - Medications Medications: Current Medications Albuterol/Ipratropium (Duoneb 3 Mg/0.5 Mg (3 Ml) Ud) 3 ml INH RQ6 PRN PRN Reason: Shortness of Breath Last Admin: 08/04/16 20:51 Dose: 3 ml Hydromorphone HCl (Dilaudid) 0.5 mg IVP Q4H PRN PRN Reason: Pain, severe (8-10) Last Admin: 08/10/16 00:39 Dose: 0.5 mg Metronidazole (Flagyl) 100 mls @ 100 mls/hr IVPB Q8 [facility] Last Admin: 08/10/16 05:12 Dose: 100 mls/hr Sodium Chloride (Sodium Chloride 0.9%) 1,000 mls @ 80 mls/hr IV .[id number] [facility] Last Admin: 08/10/16 10:36 Dose: Not Given Ciprofloxacin (Cipro 400mg/200ml Dsw) 200 mls @ 133 mls/hr IVPB Q12H [facility] Last Admin: 08/10/16 06:33 Dose: 133 mls/hr Insulin Glargine (Lantus) 10 unit SC DAILY [facility] Last Admin: 08/10/16 10:25 Dose: 10 u Metoclopramide HCl (Reglan) 5 mg IVP ACHS [facility] Last Admin: 08/10/16 12:05 Dose: 5 mg Ondansetron HCl (Zofran Inj) 4 mg IVP Q6 PRN PRN Reason: Nausea/Vomiting Oxycodone/Acetaminophen (Percocet 5/325 Mg Tab) 1 tab PO Q4H PRN PRN Reason: Pain, moderate (4-7) Stop: 08/12/16 13:03 Last Admin: 08/10/16 04:03 Dose: 1 tab Oxycodone/Acetaminophen (Percocet 5/325 Mg Tab) 2 tab PO Q4H PRN PRN Reason: Pain, severe (8-10) Stop: 08/12/16 13:03 Pantoprazole Sodium (Protonix Inj) 40 mg IVP DAILY [facility] Last Admin: 08/10/16 10:24 Dose: 40 mg Senna/Docusate Sodium (Senokot S 50 Mg-8.6 Mg) 1 tab PO BID PRN PRN Reason: Constipation Last Admin: 08/04/16 14:40 Dose: 1 tab Tamsulosin HCl (Flomax) 0.4 mg PO DAILY [facility] Last Admin: 08/10/16 10:24 Dose: 0.4 mg - Labs Labs: 08/10/16 07:58 08/10/16 07:58 PT 23.5 SECONDS (9.7-12.2) H 08/09/16 07:38 INR 2.1 08/09/16 07:38 APTT 30 SECONDS (21-34) 08/09/16 07:38 - Constitutional Appears: No Acute Distress - Eye Exam Eye Exam: Normal appearance, PERRL - ENT Exam ENT Exam: Mucous Membranes Moist - Respiratory Exam Respiratory Exam: Clear to Ausculation Bilateral, NORMAL BREATHING PATTERN - Cardiovascular Exam Cardiovascular Exam: REGULAR RHYTHM, +S1, +S2 - GI/Abdominal Exam GI & Abdominal Exam: Soft, Tenderness, Normal Bowel Sounds - Back Exam Back Exam: NORMAL INSPECTION - Neurological Exam Neurological Exam: Alert, Awake, CN II-XII Intact, Normal Gait, Oriented x3 Assessment and Plan - Assessment and Plan (Free Text) Assessment: S/P CHOLECYSTECTOMY. Plan: CT PRESENT TREATMENT.
[2016-08-11] MEDS: metroNIDAZOLE IV 500 mg/100 ml 100 ML IVPB SCH ×2 (05:11→13:29)
[2016-08-11] MEDS: Ciprofloxacin 400mg/200ml D5W 200 ML IVPB SCH ×2 (06:19→18:15)
[2016-08-11 07:10] LABS: EOS % 0.1 % (0.0-4.0); HEMATOCRIT 38.4 % (35.0-51.0); LYMPH # 1.7 K/uL (1.0-4.3); MEAN CELL VOLUME 92.9 fL (80.0-94.0); MEAN CORPUSCULAR HEMOGLOBIN 31.1 pg (27.0-31.0); MEAN CORPUSCULAR HGB CONC 33.5 g/dL (33.0-37.0); MEAN PLATELET VOLUME 7.9 fL (7.2-11.7); MONO # 0.8 K/uL (0.0-0.8); MONO % 4.6 % (0.0-10.0); RED CELL DISTRIBUTION WIDTH 14.7 % (11.5-14.5); WHITE BLOOD COUNT 16.7 K/uL (4.8-10.8)
[2016-08-11 07:14] VITALS: TEMP 97.9; O2SAT 95
[2016-08-11 07:15] LABS: CHLORIDE 90 mmol/L (98-107)
[2016-08-11 07:16] LABS: POTASSIUM 4.2 mmol/L (3.6-5.2); SODIUM 128 mmol/L (132-148)
[2016-08-11 07:17] LABS: AMYLASE 145 U/L (30-110)
[2016-08-11 07:18] LABS: ALB/GLOB RATIO 0.8 (1.0-2.1); ALKALINE PHOSPHATASE 125 U/L (38-126); ALT/SGPT 40 U/L (21-72); AST/SGOT 51 U/L (17-59); BILIRUBIN,TOTAL 1.3 mg/dL (0.2-1.3); BLOOD UREA NITROGEN 6 mg/dL (9-20); CALCIUM 7.6 mg/dl (8.6-10.4); CARBON DIOXIDE 26 mmol/L (22-30); GFR AFRICAN-AMERICAN > 60; GLUCOSE,RANDOM 155 mg/dL (75-110); PHOSPHOROUS 3.1 mg/dL (2.5-4.5); TOTAL PROTEIN 6.5 g/dL (6.3-8.3)
[2016-08-11 07:19] LABS: MAGNESIUM 1.9 mg/dL (1.6-2.3)
[2016-08-11] MEDS: (Lantus) Insulin Glargine, Recombinant SC SCH (10:12)
--- NOTE | 2016-08-11 10:17 | CP.PCM.PN ---
Subjective - Date & Time of Evaluation Date of Evaluation: 08/11/16 Time of Evaluation: 08:30 - Subjective Subjective: General Surgery Pt S&E, NAEO. Ambulating, tolerating diet, passing flatus and one small BM last night. Still feeling some bloating. Objective - Vital Signs/Intake and Output Vital Signs (last 24 hours): Temp Pulse Resp BP Pulse Ox 97.9 F 99 H 20 144/82 95 08/11/16 07:13 08/11/16 07:13 08/11/16 07:13 08/11/16 07:13 08/11/16 07:13 Intake and Output: 08/11/16 08/11/16 06:59 18:59 Intake Total 1140 Balance 1140 - Medications Medications: Current Medications Albuterol/Ipratropium (Duoneb 3 Mg/0.5 Mg (3 Ml) Ud) 3 ml INH RQ6 PRN PRN Reason: Shortness of Breath Last Admin: 08/04/16 20:51 Dose: 3 ml Hydromorphone HCl (Dilaudid) 0.5 mg IVP Q4H PRN PRN Reason: Pain, severe (8-10) Last Admin: 08/10/16 00:39 Dose: 0.5 mg Metronidazole (Flagyl) 100 mls @ 100 mls/hr IVPB Q8 [facility] Last Admin: 08/11/16 05:11 Dose: 100 mls/hr Sodium Chloride (Sodium Chloride 0.9%) 1,000 mls @ 80 mls/hr IV .[id number] [facility] Last Admin: 08/10/16 21:36 Dose: 80 mls/hr Ciprofloxacin (Cipro 400mg/200ml Dsw) 200 mls @ 133 mls/hr IVPB Q12H [facility] Last Admin: 08/11/16 06:19 Dose: 133 mls/hr Insulin Glargine (Lantus) 10 unit SC DAILY [facility] Last Admin: 08/11/16 10:12 Dose: 10 u Metoclopramide HCl (Reglan) 5 mg IVP ACHS [facility] Last Admin: 08/11/16 08:47 Dose: 5 mg Mupirocin (Bactroban Ointment) 0 gm TOP BID [facility] Last Admin: 08/10/16 21:33 Dose: 1 applic Ondansetron HCl (Zofran Inj) 4 mg IVP Q6 PRN PRN Reason: Nausea/Vomiting Oxycodone/Acetaminophen (Percocet 5/325 Mg Tab) 1 tab PO Q4H PRN PRN Reason: Pain, moderate (4-7) Stop: 08/12/16 13:03 Last Admin: 08/10/16 04:03 Dose: 1 tab Oxycodone/Acetaminophen (Percocet 5/325 Mg Tab) 2 tab PO Q4H PRN PRN Reason: Pain, severe (8-10) Stop: 08/12/16 13:03 Last Admin: 08/10/16 21:36 Dose: 2 tab Pantoprazole Sodium (Protonix Inj) 40 mg IVP DAILY [facility] Last Admin: 08/10/16 10:24 Dose: 40 mg Senna/Docusate Sodium (Senokot S 50 Mg-8.6 Mg) 1 tab PO BID PRN PRN Reason: Constipation Last Admin: 08/04/16 14:40 Dose: 1 tab Tamsulosin HCl (Flomax) 0.4 mg PO DAILY [facility] Last Admin: 08/11/16 10:12 Dose: 0.4 mg - Labs Labs: 08/11/16 06:30 08/11/16 06:30 PT 23.5 SECONDS (9.7-12.2) H 08/09/16 07:38 INR 2.1 08/09/16 07:38 APTT 30 SECONDS (21-34) 08/09/16 07:38 - Constitutional Appears: Non-toxic, No Acute Distress - Head Exam Head Exam: ATRAUMATIC, NORMOCEPHALIC - Eye Exam Eye Exam: EOMI. absent: Scleral icterus - Respiratory Exam Respiratory Exam: NORMAL BREATHING PATTERN. absent: Respiratory Distress - GI/Abdominal Exam GI & Abdominal Exam: Distended (mild), Soft, Tenderness (mild at incision sites) . absent: Firm, Guarding, Rigid Additional comments: dressings dry , intact - Neurological Exam Neurological Exam: Alert, Awake, Oriented x3 - Skin Skin Exam: Dry, Warm Assessment and Plan - Assessment and Plan (Free Text) Assessment: 46M POD2 s/p robotic cholecystectomy Plan: Continue pain management Encouraged ambulation and IS use Q1H Monitor WBC Will D/W Dr. Sheldon Schmidt PGY3
--- NOTE | 2016-08-11 10:34 | PN ---
DATE: 08/11/2016 LOCATION: 361, bed B. SUBJECTIVE: This is a 46-year-old male post-cholecystectomy seen and examined in rounds with intermi ttent periods of mild abdominal pain, but no reported active bleeding with postprandial abdominal dis tention. The entire chart is reviewed, including but not limited to the most recent lab and radiolog y study results, current and the previous medication list, current and the previous medical events. The patient still has leukocytosis of 16.7, normal hemoglobin and hematocrit, but with thrombocytosis of 43.8, with low sodium of 128, low BUN and low creatinine, but elevated blood glucose level to 170 , with albumin 2.6, low. His amylase reported to be mildly elevated to 145, but normal lipase level. PHYSICAL EXAMINATION: GENERAL: A 46-year-old male, awake, alert, oriented. VITAL SIGNS: Afebrile with heart rate of 94, respiratory rate 20-22, blood pressure 140/84. HEENT: Showed pale, dry oral mucous membrane. Nonicteric sclerae. LUNGS: Few scattered crepitation. Decreased air entry at bases. HEART: Positive S1 and S2. ABDOMEN: Soft. Bowel sounds are present with slight distention. No mass or organomegaly. No rebou nd tenderness or guarding. EXTREMITIES: With slight lower extremity edematous changes. NEUROLOGIC: No reported new neurological deficits, sensory or motor. It has to be mentioned that the official pathology report of status post cholecystectomy was indicati ve of acute and chronic cholecystitis with evidence of cholelithiasis. IMPRESSION: 1. Cholelithiasis, cholecystitis, status post cholecystectomy. 2. Jaundice with cholangiopancreatography and biliary stent insertion, patient improved immediately and clinically. 3. Acute pancreatitis, most likely biliary pancreatitis with leukocytosis, still on antibiotic. 4. Known history of diabetes mellitus. 5. Peptic ulcer disease by recent history. SUGGESTION: 1. Continue current management. 2. Repeat blood cultures. 3. Antireflux measures. Dk Matias MD cc: 14 TT: 08/11/2016 10:33:41 Confirmation # [id number] Dictation # [id number] renata
--- NOTE | 2016-08-11 11:05 | CON ---
DATE: 08/02/[address] Dk Matias to Dr. Jackson. I was called for GI consultation by the admitting medical team. The patient is seen and fully examin ed for GI consultation on 08/02/2016 as requested by the admitting medical staff. The entire chart is reviewed, including but not limited to, the most recent lab and radiology study results, current and previous medication lists, current and previous medical events, allergy to medication list as well a s all the available current and previous medical records. Case discussed at length with the staff on the floor. This is a 46-year-old male who was admitted to the hospital through the Emergency Room with a main co mplaint of severe persistent abdominal pain for 2-3 days prior to his admission with change of bowel movement habit reported to be with severe constipation for 3-4 days, which was getting worse recently . No reported active bleeding, but persistent nausea and dyspepsia followed by 1 episode of vomiting of gastric contents and bile contents. No reported actual bleeding. No chest pain or palpitation, but change of his eye color to be more yellow, jaundice. PAST MEDICAL HISTORY: Revealed no significant disease, but possible peptic ulcer disease. FAMILY HISTORY: Positive for hypertension and diabetes mellitus. SOCIAL HISTORY: Denied any cigarette smoking or alcohol intake. CURRENT MEDICATIONS: List post admission is seen. ALLERGY TO MEDICATION: Unknown. Initial blood workup post admission showed white blood cells elevated to 22.1 with increased BUN and creatinine believed to be secondary to hemoconcentration with low potassium 3.0, blood glucose level was found to be elevated to 232 with total bilirubin 6.6, AST 603, ALT with alkaline phosphatas e of 192 with increased amylase to 1935 and lipase 12,953. Abdominal and pelvic CAT scan was performed, initial report seen, indicative of possible acute severe pancreatitis and I ordered abdominal ultrasound, which was done, indicative of cholelithiasis. PHYSICAL EXAMINATION: GENERAL: A 46-year-old male, complaining of severe persistent abdominal pain with persistent nausea and dyspepsia, awake, alert, oriented. VITAL SIGNS: Afebrile with pulse of 84, respiratory rate 20-22, blood pressure 140/76. HEENT: Showed pale, dry oral mucoid membrane with bilateral icteric sclerae. LUNGS: Few scattered crepitation, decreased air entry at bases. HEART: Positive S1 and S2 with increased rate mildly. LYMPH NODES: No lymphadenitis or lymphadenopathy. ABDOMEN: Soft with diffuse tenderness. Bowel sounds are hypoactive. No mass or organomegaly. No r ebound tenderness or guarding. RECTAL: The patient refused. EXTREMITIES: Without significant edema, clubbing or cyanosis. NEUROLOGIC: No reported new neurological deficit, sensory or motor. It has to be mentioned that the patient had generalized jaundice compatible with his also elevated to franc bilirubin. IMPRESSION: 1. Cholelithiasis by ultrasound report. 2. Acute pancreatitis, to rule out possible biliary pancreatitis. 3. Jaundice, to rule out possible obstructive jaundice. 4. Abnormal liver function tests, secondary to above. 5. Reexacerbation of peptic ulcer disease. 6. Leukocytosis, secondary to his acute pancreatitis, most likely. SUGGESTION: 1. Agree with your plan. 2. MRCP. 3. Rehydration. 4. Proton pump inhibitors. 5. Flagyl IV. 6. Blood culture x 2. 7. Further recommendation to follow post MRCP. 8. Surgical consultation. Thank you for letting me participate in your patient's case management. Dk Matias MD cc: 14 TT: 08/11/2016 11:04:07 Confirmation # [id number] Dictation # [id number]
[2016-08-11] MEDS: Sodium Chloride 0.9% 1,000 ML IV SCH ×2 (12:01→13:38)
[2016-08-11] MEDS: Oxycodone/Acetaminophen 5/325 mg Tab PO PRN (12:49)
--- NOTE | 2016-08-11 13:21 | CP.PCM.PN ---
Subjective - Date & Time of Evaluation Date of Evaluation: 08/11/16 Time of Evaluation: 13:19 - Subjective Subjective: CARDIAC STABLE. S/P CHOLECYSTECTOMY. Objective - Vital Signs/Intake and Output Vital Signs (last 24 hours): Temp Pulse Resp BP Pulse Ox 97.9 F 99 H 20 144/82 95 08/11/16 07:13 08/11/16 07:13 08/11/16 07:13 08/11/16 07:13 08/11/16 07:13 Intake and Output: 08/11/16 08/11/16 06:59 18:59 Intake Total 1140 Balance 1140 - Medications Medications: Current Medications Albuterol/Ipratropium (Duoneb 3 Mg/0.5 Mg (3 Ml) Ud) 3 ml INH RQ6 PRN PRN Reason: Shortness of Breath Last Admin: 08/04/16 20:51 Dose: 3 ml Hydromorphone HCl (Dilaudid) 0.5 mg IVP Q4H PRN PRN Reason: Pain, severe (8-10) Last Admin: 08/10/16 00:39 Dose: 0.5 mg Metronidazole (Flagyl) 100 mls @ 100 mls/hr IVPB Q8 [facility] Last Admin: 08/11/16 05:11 Dose: 100 mls/hr Sodium Chloride (Sodium Chloride 0.9%) 1,000 mls @ 80 mls/hr IV .[id number] [facility] Last Admin: 08/11/16 12:01 Dose: Not Given Ciprofloxacin (Cipro 400mg/200ml Dsw) 200 mls @ 133 mls/hr IVPB Q12H [facility] Last Admin: 08/11/16 06:19 Dose: 133 mls/hr Insulin Glargine (Lantus) 10 unit SC DAILY [facility] Last Admin: 08/11/16 10:12 Dose: 10 u Metoclopramide HCl (Reglan) 5 mg IVP ACHS [facility] Last Admin: 08/11/16 12:40 Dose: 5 mg Mupirocin (Bactroban Ointment) 0 gm TOP BID [facility] Last Admin: 08/11/16 10:29 Dose: 1 applic Ondansetron HCl (Zofran Inj) 4 mg IVP Q6 PRN PRN Reason: Nausea/Vomiting Oxycodone/Acetaminophen (Percocet 5/325 Mg Tab) 1 tab PO Q4H PRN PRN Reason: Pain, moderate (4-7) Stop: 08/12/16 13:03 Last Admin: 08/10/16 04:03 Dose: 1 tab Oxycodone/Acetaminophen (Percocet 5/325 Mg Tab) 2 tab PO Q4H PRN PRN Reason: Pain, severe (8-10) Stop: 08/12/16 13:03 Last Admin: 08/11/16 12:49 Dose: 2 tab Pantoprazole Sodium (Protonix Inj) 40 mg IVP DAILY [facility] Last Admin: 08/11/16 10:30 Dose: 40 mg Senna/Docusate Sodium (Senokot S 50 Mg-8.6 Mg) 1 tab PO BID PRN PRN Reason: Constipation Last Admin: 08/04/16 14:40 Dose: 1 tab Tamsulosin HCl (Flomax) 0.4 mg PO DAILY [facility] Last Admin: 08/11/16 10:12 Dose: 0.4 mg - Labs Labs: 08/11/16 06:30 08/11/16 06:30 PT 23.5 SECONDS (9.7-12.2) H 08/09/16 07:38 INR 2.1 08/09/16 07:38 APTT 30 SECONDS (21-34) 08/09/16 07:38 - Constitutional Appears: No Acute Distress - Eye Exam Eye Exam: Normal appearance, PERRL - ENT Exam ENT Exam: Mucous Membranes Moist - Respiratory Exam Respiratory Exam: Clear to Ausculation Bilateral, NORMAL BREATHING PATTERN - Cardiovascular Exam Cardiovascular Exam: REGULAR RHYTHM, +S1, +S2 - GI/Abdominal Exam GI & Abdominal Exam: Soft, Normal Bowel Sounds - Extremities Exam Extremities Exam: Full ROM, Normal Capillary Refill, Normal Inspection. absent : Joint Swelling, Pedal Edema - Neurological Exam Neurological Exam: Alert, Awake, CN II-XII Intact, Normal Gait, Oriented x3 Assessment and Plan - Assessment and Plan (Free Text) Assessment: STABLE. Plan: CT OTHER TREATMENT.
[2016-08-11 16:52] VITALS: BP 132/84; PULSE 102
--- NOTE | 2016-08-11 17:01 | CP.PCM.DIS ---
Provider - Provider Date of Admission: 07/30/16 13:04 Attending physician: Arden Jackson Jr, MD Consults: Cardio: Dr. Jaylene Renee Critical care: Dr. Butterfield GI: Dr. Matias Gen Surg: Dr. Chung Time Spent in preparation of Discharge (in minutes): 40 Hospital Course - Lab Results Lab Results: Micro Results 08/07/16 04:00 Blood Blood Culture - Preliminary NO GROWTH AFTER 4 DAYS 08/07/16 07:30 Blood Blood Culture - Preliminary NO GROWTH AFTER 4 DAYS 08/07/16 18:00 Blood Blood Culture - Preliminary NO GROWTH AFTER 3 DAYS 08/07/16 18:00 Blood Blood Culture - Preliminary NO GROWTH AFTER 3 DAYS Most Recent Lab Values WBC 16.7 K/uL (4.8-10.8) H 08/11/16 06:30 RBC 4.14 Mil/uL (4.40-5.90) L 08/11/16 06:30 Hgb 12.9 g/dL (12.0-18.0) 08/11/16 06:30 Hct 38.4 % (35.0-51.0) 08/11/16 06:30 MCV 92.9 fL (80.0-94.0) 08/11/16 06:30 MCH 31.1 pg (27.0-31.0) H 08/11/16 06:30 MCHC 33.5 g/dL (33.0-37.0) 08/11/16 06:30 RDW 14.7 % (11.5-14.5) H 08/11/16 06:30 Plt Count 438 K/uL (130-400) H 08/11/16 06:30 MPV 7.9 fL (7.2-11.7) 08/11/16 06:30 Neut % (Auto) 85.3 % (50.0-75.0) H 08/11/16 06:30 Lymph % (Auto) 10.0 % (20.0-40.0) L 08/11/16 06:30 [place] % (Auto) 4.6 % (0.0-10.0) 08/11/16 06:30 Eos % (Auto) 0.1 % (0.0-4.0) 08/11/16 06:30 Baso % (Auto) 0.0 % (0.0-2.0) 08/11/16 06:30 Neut # 14.2 K/uL (1.8-7.0) H 08/11/16 06:30 Lymph # 1.7 K/uL (1.0-4.3) 08/11/16 06:30 [place] # 0.8 K/uL (0.0-0.8) 08/11/16 06:30 Eos # 0.0 K/uL (0.0-0.7) 08/11/16 06:30 Baso # 0.0 K/uL (0.0-0.2) 08/11/16 06:30 Neutrophils % (Manual) 88 % (50-75) H 08/09/16 07:38 Band Neutrophils % 2 % (0-2) 08/09/16 07:38 Lymphocytes % (Manual) 5 % (20-40) L 08/09/16 07:38 Reactive Lymphs % 2 % (0-0) H 08/08/16 08:32 Monocytes % (Manual) 5 % (0-10) 08/09/16 07:38 Eosinophils % (Manual) TEST NOT PERFORMED 08/05/16 06:45 Basophils % (Manual) 1 % (0-2) 08/08/16 08:32 Toxic Granulation Present 08/06/16 08:35 Dohle Bodies Present 08/04/16 08:02 Platelet Estimate Normal (NORMAL) 08/09/16 07:38 RBC Morphology Normal 08/09/16 07:38 Polychromasia Slight 07/31/16 07:13 Poikilocytosis (manual Slight 08/03/16 07:01 Anisocytosis (manual) Slight 08/08/16 08:32 Ovalocytes Slight 08/04/16 08:02 PT 23.5 SECONDS (9.7-12.2) H 08/09/16 07:38 INR 2.1 08/09/16 07:38 APTT 30 SECONDS (21-34) 08/09/16 07:38 pO2 32 mm/Hg (30-55) 07/30/16 13:46 VBG pH 7.30 (7.32-7.43) L 07/30/16 13:46 VBG pCO2 50 mmHg (40-60) 07/30/16 13:46 VBG HCO3 21.9 mmol/L 07/30/16 13:46 VBG Total CO2 26.1 mmol/L (22-28) 07/30/16 13:46 VBG O2 Sat (Calc) 62.1 % (40-65) 07/30/16 13:46 VBG Base Excess -2.4 mmol/L (0.0-2.0) L 07/30/16 13:46 VBG Potassium 3.4 mmol/L (3.6-5.2) L 07/30/16 13:46 Sodium 141.0 mmol/l (132-148) 07/30/16 13:46 Chloride 107.0 mmol/L (98-107) 07/30/16 13:46 Glucose 185 mg/dl (75-110) H 07/30/16 13:46 Lactate 3.1 mmol/L (0.7-2.1) H 07/30/16 13:46 Sodium 128 mmol/L (132-148) L 08/11/16 06:30 Potassium 4.2 mmol/L (3.6-5.2) 08/11/16 06:30 Chloride 90 mmol/L (98-107) L 08/11/16 06:30 Carbon Dioxide 26 mmol/L (22-30) 08/11/16 06:30 Anion Gap 16 (10-20) 08/11/16 06:30 BUN 6 mg/dL (9-20) L 08/11/16 06:30 Creatinine 0.7 MG/DL (0.8-1.5) L 08/11/16 06:30 Est GFR ( Amer) > 60 08/11/16 06:30 Est GFR (Non-Af Amer) > 60 08/11/16 06:30 POC Glucose (mg/dL) 226 mg/dL (65-110) H 08/11/16 16:44 Random Glucose 155 mg/dL (75-110) H 08/11/16 06:30 Hemoglobin A1c 5.6 % (4.2-6.5) 07/30/16 10:33 Calcium 7.6 mg/dl (8.6-10.4) L 08/11/16 06:30 Phosphorus 3.1 mg/dL (2.5-4.5) 08/11/16 06:30 Magnesium 1.9 mg/dL (1.6-2.3) 08/11/16 06:30 Total Bilirubin 1.3 mg/dL (0.2-1.3) 08/11/16 06:30 GGT 172 U/L (8-78) H 08/06/16 08:35 AST 51 U/L (17-59) 08/11/16 06:30 ALT 40 U/L (21-72) 08/11/16 06:30 Alkaline Phosphatase 125 U/L (38-126) 08/11/16 06:30 Lactate Dehydrogenase 2384 U/L (313-618) H 08/01/16 07:03 Total Protein 6.5 g/dL (6.3-8.3) 08/11/16 06:30 Albumin 2.9 g/dL (3.5-5.0) L 08/11/16 06:30 Globulin 3.6 gm/dL (2.2-3.9) 08/11/16 06:30 Albumin/Globulin Ratio 0.8 (1.0-2.1) L 08/11/16 06:30 Triglycerides 161 mg/dL (0-149) H 08/01/16 07:03 Cholesterol 157 mg/dL (0-199) 08/01/16 07:03 LDL Cholesterol Direct 72 mg/dL (0-129) 08/01/16 07:03 HDL Cholesterol 26 mg/dL (30-70) L 08/01/16 07:03 Amylase 145 U/L (30-110) H D 08/11/16 06:30 Lipase 188 U/L (23-300) 08/11/16 06:30 Venous Blood Potassium 3.4 mmol/L (3.6-5.2) L 07/30/16 13:46 Urine Color Yellow (YELLOW) 08/05/16 22:37 Urine Clarity Hazy (Clear) 08/05/16 22:37 Urine pH 7.0 (5.0-8.0) 08/05/16 22:37 Ur Specific Nye 1.011 (1.003-1.030) 08/05/16 22:37 Urine Protein 1+ mg/dL (NEGATIVE) H 08/05/16 22:37 Urine Glucose (UA) 3+ mg/dL (Normal) H 08/05/16 22:37 Urine Ketones 1+ mg/dL (NEGATIVE) H 08/05/16 22:37 Urine Blood Trace (NEGATIVE) H 08/05/16 22:37 Urine Nitrate Negative (NEGATIVE) 08/05/16 22:37 Urine Bilirubin Negative (NEGATIVE) 08/05/16 22:37 Urine Urobilinogen Normal mg/dL (0.2-1.0) 08/05/16 22:37 Ur Leukocyte Esterase Neg Taryn/uL (Negative) 08/05/16 22:37 Urine WBC (Auto) 1 /hpf (0-5) 08/05/16 22:37 Urine RBC (Auto) < 1 /hpf (0-3) 08/05/16 22:37 Urine Bacteria Rare (<OCC) 08/05/16 22:37 Serum Ketones Negative (NEGATIVE) 07/30/16 10:33 Hepatitis A IgM Ab Negative (NEGATIVE) 07/30/16 18:56 Hep Bs Antigen Negative (NEGATIVE) 07/30/16 18:56 Hep B Core IgM Ab Negative (NEGATIVE) 07/30/16 18:56 Hepatitis C Antibody Negative (NEGATIVE) 07/30/16 18:56 - Hospital Course Hospital Course: Upon hospital admission: 46 year old male with no PMHx presents to the ED with 2 day history of abdominal pain. Patient reports pain started first and it has progressed to 10 out 10 pain today. Admits to nausea and episode of emesis once this AM. He reports going to the emergency room with abdominal pain 1.5 years ago, where he was diagnosed with constipation and given a laxative. He admits to constipation now, with last BM 2-3 days ago. Admits to abdominal distension and pain. He states he had blood work done about a year ago to check for diabetes since his mother is a diabetic. Patient was told "everything was fine" and does not follow regularly with a PMD. Denies chest pain, SOB, fevers, chills , headache, palpitations, diarrhea. Admits to 1 year history of increased urinary frequency, urgency and occasional incontinence. PMHx: denies Social Hx: denies alcohol use, smokes 3 cigarets per day, admits to daily use of marijuana. Family Hx: mother with DM and HTN. Surgery Hx: none NKDA Medications: none PMD: none During hospital course, the patient was evaluated and treated for the following : Cholelithiasis f/u amylase / lipase 3/21: Patient doing well, recovering with no acute complaints. s/p robotic assisted laparoscopic cholecystectomy (surgery 08/09). -08/07- Bilirubin down to 1.7 from 6.6 on admission -GI consult placed- Dr. Matias- 08/06: Rec Surgical consult for questionable CBD filling defect and prior US showing cholelithiasis. 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 Filling defect in distal CBD (air vs stone). 08/02: ERCP- stopped early due to hypoxia. Major papilla was not found, major papilla appeared congested/erythematous/stenotic Rec full liquid diet; continue current meds; repeat ERCP for retreatment 07/31: MRCP- acute pancreatitis, possibility of necrosis. Inflammatory changes in upper abdomen consistent with acute pancreatitis. f/u MRCP study after 1-2 weeks suggested to eval for pseudocyst formation. contracted gallbladder with multiple stones. RUQ US w/heterogeneous echo texture of hepatic parenchyma, poss D/T hepatic steatosis vs. parenchymal disease. Cholelithiasis. No definite evidence of cholecystitis. Nuclear medicine HIDA scan or MRI can be obtained if indicated. -Lipid panel - Triglycerides 161, Cholesterol 157, LDL 72, HDL 26L Leukocytosis 08/10: WBC downtrending, Afebrile 08/07: WBC 19.4, Tmax 100.0 on 08/05. afebrile otherwise 08/06: WBC 22.5, uptrending. Start Cipro 400mg IVPB Q12H (Q12 per pharmacy). Continue Flagyl. 08/05: WBC 20.9- continue Flagyl. UA Negative 08/04: WBC 19.4, 12 Bands. 08/03: WBC 17.5 , downtrending; 08/02: WBC 17.8 , downtrending; BC neg x1day; UC neg. Likely secondary to acute pancreatitis. WBC 22.1 trending down, Afebrile. -Flagyl 500mg IV q8H started per Dr. Matias (since 07/31) -Cipro 400mg IVPB Q12H (since 08/06) BC neg x5day UC 07/30 neg CXR in obs series neg Lactic Acid 3.3 on admission. Acute pancreatitis, acute - resolved f/u lipase/amylase in am. 08/08: Tolerating liquid diet. Mild periumbilical pain. 08/07: Tolerating Liquid diet. Mild RUQ pain. 08/06: Lipase/amylase normalized. [id number]. Minimal abdominal pain today. Mildly ( +) Candelario's Hold Dilaudid. 08/05: Lipase 67 / Amylase 34. mid-epigastric pain decreased to /10. Liquid diet 08/04: mid-epigastric pain decreased to 07/30. f/u lipase/amylase. 08/03: lipase 107 / amylase 72 - resolved; Mid-epigastric abdominal pain persists 08/02: Lipase - 379, downtrending [place]'s criteria at 24 hours: Positive for glucose >200 (232), LDH > 350 (3800) , AST >250 (603), WBC >43782 (47666). Lipase on admission 24355, now 115 Amylase on admission 1935, now 38 Abd/pelv CT showed acute/severe pancreatitis without focal abnormalities to suggest necrotizing pancreatitis. Zofran Q4H PRN for nausea CMP Q8H and replace as needed Liver enzymes trending down Hyperglycemia, acute 08/10: glucose elevated 220-260 Hgb A1c 5.6 Blood sugar range: 100-300 Random glucose on admission 232. Serum Ketones: neg Monitor Constipation, acute - resolved 08/05-08/07: cont Senokot S 1tab PO BID PRN, constipation. 08/04: Miralax once. Senokot S 1tab PO BID PRN, constipation. 08/02: persists - fleet enema. Abdomen Obs series is unremarkable. No evidence of mechanical bowel obstruction. Dulcolax suppository X 1 Having BM, but hard stool Diarrhea, acute - resolved 08/05: Continue Neutraphos BID (STOP 08/08 am) -08/04: 1 eipisode, decreasing. Neutraphos dec to BID. -08/03: 4 episodes of diarrhea likely due to neutraphos TID. Electrolyte Imbalance -Hypokalemia, 08/02: K2.9 KCl 20meq IVPB x2 -> 08/03: K3.1 KPhos 15mmol in NS 250mL -> K3.1 KCl 10meq x2 bag, KPhos 15mmol in NS 250mL -> 08/04: K3.3 KCl IV 20meq + KCl PO 20 -- Monitor and replete. RESOLVED -Hypophosphatemia, 08/02: P1.0 KPhos 15mmol in NS 250mL + Neutraphos PO 1 packet -> 08/03: P 1.1 -> Neutraphos PO TID + KPhos 15mmol in NS 250mL -> 08/04: 1.9 -> Neutraphos PO BID (reduced due to diarrhea). -- Monitor -> Neutraphos set to stop 08/08 in am -- RESOLVED Metabolic acidosis, increased anion gap (IAG), acute- resolved Measured anion gap: 21 on admission Lactic Acid 3.3 as per VBG. Serum Ketones: negative Management as above. Urinary Frequency Per Dr. Chung, patient complained of urinary frequency. -Flomax 0.4mg PO Daily -Renal/Urinary bladder U/S - negative Upon hospital discharge, the patient was provided with the following instructions: Patient is stable for discharge per Dr. Jackson. Patient should resume all medications as outlined in this document. Additionally, patient should take the new medications listed below (scripts provided). 1. Please make an appointment and follow up with Dr. Jackson (Primary Doctor) within one week of discharge. 2. Please make an appointment and follow up with Dr. Matias (Gastroenterology) within one week of discharge. He performed your ERCP with biliary stenting, and will follow your progress to determine when to remove the stent. 3. Please make an appointment and follow up with Dr. Chung (General Surgery ) within 1 week of discharge, for follow up of your recent cholecystectomy. Patient should return to ED immediately if symptoms return or worsen. Instructions discussed with patient who understood and agreed. Newly prescribed medications: Levaquin 750mg PO daily #10 tabs (for infection, take for 10 days) Flomax 0.4mg PO daily #30 caps (for urinary retention/frequency) Tylenol 650mg PO Q6H as needed for moderate pain (you can purchase this OTC at your local pharmacy) Post-operative Instructions: No heavy lifting >10lbs until office visit. Keep bandages in place for 5 days. Ok to shower, but keep the bandages dry. Smaller bandages directly over incisions will come off on their own. Keep incision clean/dry. This is a summary of the patient's hospital admission, see chart for comprehensive detail. - Date & Time of H&P Date of H&P: 07/30/16 Time of H&P: 14:28 Discharge Exam - Additional Findings Additional findings: - Constitutional Appears: Non-toxic, No Acute Distress - Head Exam Head Exam: ATRAUMATIC, NORMAL INSPECTION, NORMOCEPHALIC - Eye Exam Eye Exam: EOMI, Normal appearance, PERRL Pupil Exam: NORMAL ACCOMODATION, PERRL - ENT Exam ENT Exam: Mucous Membranes Moist, Normal Exam - Neck Exam Neck Exam: Full ROM, Normal Inspection - Respiratory Exam Respiratory Exam: Clear to Ausculation Bilateral, NORMAL BREATHING PATTERN. absent: Rales, Rhonchi, Wheezes - Cardiovascular Exam Cardiovascular Exam: REGULAR RHYTHM, +S1, +S2 - GI/Abdominal Exam GI & Abdominal Exam: Soft, Tenderness (david-incisional), Normal Bowel Sounds. Distended (mild) - dressings clean, dry, intact - Back Exam Back Exam: NORMAL INSPECTION - Neurological Exam Neurological Exam: Alert, Awake, CN II-XII Intact, Oriented x3 - Psychiatric Exam Psychiatric exam: Normal Affect, Normal Mood - Skin Skin Exam: Dry, Intact, Normal Color, Warm Discharge Plan - Discharge Medications Prescriptions: Tamsulosin [Flomax] 0.4 mg PO DAILY #30 cap levoFLOXacin [Levaquin] 750 mg PO DAILY #10 tab - Follow Up Plan Condition: FAIR Disposition: HOME/ ROUTINE Instructions: Leukocytosis (DC), Leukocytosis (GEN) Additional Instructions: Patient is stable for discharge per Dr. Jackson. Patient should resume all medications as outlined in this document. Additionally, patient should take the new medications listed below (scripts provided). 1. Please make an appointment and follow up with Dr. Jackson (Primary Doctor) within one week of discharge. 2. Please make an appointment and follow up with Dr. Matias (Gastroenterology) within one week of discharge. He performed your ERCP with biliary stenting, and will follow your progress to determine when to remove the stent. 3. Please make an appointment and follow up with Dr. Chung (General Surgery ) within 1 week of discharge, for follow up of your recent cholecystectomy. Patient should return to ED immediately if symptoms return or worsen. Instructions discussed with patient who understood and agreed. Newly prescribed medications: Levaquin 750mg PO daily #10 tabs (for infection, take for 10 days) Flomax 0.4mg PO daily #30 caps (for urinary retention/frequency) Tylenol 650mg PO Q6H as needed for moderate pain (you can purchase this OTC at your local pharmacy) Post-operative Instructions: No heavy lifting >10lbs until office visit. Keep bandages in place for 5 days. Ok to shower, but keep the bandages dry. Smaller bandages directly over incisions will come off on their own. Keep incision clean/dry.
[2016-08-11 17:20] LABS: CARCINOEMBRYONIC ANTIGEN 1.9 ng/mL (0-3.0)
[2016-08-11 17:24] LABS: CA 19-9 30.5 U/mL (0-37)
== END 2016-08-11 18:20 | disposition home or self-care (01) | DRG 418 ==
LOC: C.ER 09:36 → C.9E 13:04 → EDBD 13:04 → C.3T 13:53
PROVIDERS: ADMIT Internal Medicine; ATTEND Internal Medicine
PROC: 0FJD8ZZ Inspection of Pancreatic Duct, Via Natural or Artificial Opening Endoscopic (ICD-10-PCS; 2016-08-02)
PROC: 0F798DZ Dilation of Common Bile Duct with Intraluminal Device, Via Natural or Artificial Opening Endoscopic (ICD-10-PCS; 2016-08-05)
PROC: 8E0W4CZ Robotic Assisted Procedure of Trunk Region, Percutaneous Endoscopic Approach (ICD-10-PCS; 2016-08-09)
PROC: 0FT44ZZ Resection of Gallbladder, Percutaneous Endoscopic Approach (ICD-10-PCS; principal; 2016-08-09 07:45)
DX: K85.10 Biliary acute pancreatitis without necrosis or infection (principal); K80.12 Calculus of gallbladder with acute and chronic cholecystitis without obstruction; E87.2 Acidosis; J95.88 Other intraoperative complications of respiratory system, not elsewhere classified; R09.02 Hypoxemia; K29.00 Acute gastritis without bleeding; K31.89 Other diseases of stomach and duodenum; D72.829 Elevated white blood cell count, unspecified; K59.09 Other constipation; F12.10 Cannabis abuse, uncomplicated; F17.210 Nicotine dependence, cigarettes, uncomplicated